=== PATIENT | female | born 1965 | race Hispanic/Latino ===

== ENCOUNTER 2017-06-21 18:13 | Emergency (ER) | payer OTHER ==
[~2017-06-21] VITALS: Ht 165.1 cm; Wt 72.6 kg
[~2017-06-21 18:13] MED LIST: PROAIR HFA8.5 GM INH
[2017-06-21 18:51] LABS: ABSOLUTE BASOPHIL COUNT 0 /CUMM (0.0-0.2); ABSOLUTE EOSINOPHIL COUNT 0.1 /CUMM (0.0-0.7); ABSOLUTE GRANULOCYTE CT 4.6 /CUMM (1.4-6.5); ABSOLUTE LYMPH COUNT 2.5 /CUMM (1.2-3.4); ABSOLUTE MONOCYTE COUNT 0.5 /CUMM (0.10-0.60); BASOPHIL % 0.6 % (0.0-2.0); EOSINOPHIL % 1.4 % (0-5); HEMATOCRIT 43.7 % (37-47); MEAN CORPUSCULAR HGB 30.7 PG (27.0-31.0); MEAN CORPUSCULAR HGB CONC 32.6 G/DL (33.0-37.0); MEAN CORPUSCULAR VOLUME 94.2 FL (81.0-99.0); MEAN PLATELET VOLUME 7.7 FL (7.4-10.4); PLATELET COUNT 299 /CUMM (130-400); RBC DISTRIBUTION WIDTH 16.8 % (11.5-14.5); RED BLOOD CELL CT 4.64 /CUMM (4.20-5.40); WHITE BLOOD CELL COUNT 7.8 /CUMM (4.8-10.8)
[2017-06-21 19:11] LABS: GRANULOCYTE % 59.4 % (42.2-75.2)
--- NOTE | 2017-06-21 20:33 | ED GENERAL ADULT ---
History of Present Illness General Chief Complaint: Headache Stated Complaint: GUIDO X 5 DAYS/ ABD SWELLING? Source: patient Exam Limitations: no limitations Vital Signs & Intake/Output Vital Signs & Intake/Output Vital Signs Date Time Temp Pulse Resp B/P B/P Pulse O2 O2 Flow FiO2 Mean Ox Delivery Rate 06/21 2231 98.7 97 20 130/78 96 Room Air 06/21 2230 95 Room Air 06/21 1822 98.1 101 18 132/89 100 Room Air ED Intake and Output 06/22 0000 06/21 1200 Intake Total Output Total Balance Patient 160 lb Weight Weight Estimated Measurement Method Allergies Coded Allergies: No Known Allergies (04/04/17) Reconcile Medications Albuterol Sulfate (Proair Hfa) 90 MCG HFA.AER.AD 2 PUF INH Q4-6 PRN PRN sob Azithromycin (Zithromax) 250 MG TABLET 1 DP PO AD PNA 2 the first day followed by 1 for days 2-5 Furosemide (Lasix) 20 MG TABLET 1 TAB PO DAILY swelling Meloxicam (Mobic) 15 MG TABLET 1 TAB PO DAILY PRN pain Triage Note: PT TO ER C/C ABD PAIN, SWELLING AND LOWER EXTREMITY EDEMA SINCE 06/06. SEEN AT [facility] ER FOR SAME ON 06/06, STATES, "NOTHING WAS WRONG WITH ME" PATIENTS LEGS NOTABLY SWOLLEN, ABD DISTENDED. +SOB, +CP Triage Nurses Notes Reviewed? yes Onset: Gradual Duration: day(s): Timing: recent history Injury Environment: home Severity: moderate : No Patient currently breastfeeds: No HPI: 51-year-old female with history of high blood pressure presents emergency department complaining of dyspnea and chest pain on exertion. Chest pain is described as substernal, relieved with rest. Patient also complaining of swelling of both lower legs and of abdomen. Abdominal swelling associated with generalized abdominal pain. Patient reports that she has had a cough productive of yellow sputum intermittently for the past several days. Patient is also feeling fevers and chills intermittently for the past 2 days with headache and body aches. Patient reports that she was seen at [facility] in May and her swelling has been present since this hospital visit. (Cat WINCHESTER,Donna Jensen) Past History Travel History Traveled to [place] past 21 day No Medical History Any Pertinent Medical History? see below for history Respiratory: asthma, bronchitis Psychiatric: depression Surgical History Surgical History: non-contributory Psychosocial History What is your primary language Citizen Of [place] Tobacco Use: Current Daily Use Daily Tobacco Use Amount/Type: => 5 Cigarettes daily Family History Hx Contributory? No (Donna Lindsey) Review of Systems Review of Systems Constitutional: Reports: see HPI. EENTM: Reports: no symptoms. Respiratory: Reports: see HPI. Cardiovascular: Reports: see HPI. GI: Reports: see HPI. Genitourinary: Reports: no symptoms. Musculoskeletal: Reports: see HPI. Skin: Reports: no symptoms. Neurological/Psychological: Reports: see HPI. Hematologic/Endocrine: Reports: no symptoms. Immunologic/Allergic: Reports: no symptoms. All Other Systems: Reviewed and Negative (Donna Lindsey) Physical Exam Physical Exam General Appearance: well developed/nourished, no apparent distress, alert, awake Head: atraumatic, normal appearance Eyes: Bilateral: normal appearance. Ears, Nose, Throat: normal pharynx, hearing grossly normal Neck: normal inspection, supple, full range of motion Respiratory: normal breath sounds, no respiratory distress, crackles bilateral lung bases Cardiovascular: regular rate/rhythm Gastrointestinal: mild-moderate distention, nontender, no rebound or gaurding Back: normal inspection, normal range of motion Extremities: normal range of motion, 1+ pitting edema bilateral lower extremities Neurologic/Psych: awake, alert, oriented x 3 Skin: intact, normal color, warm/dry Core Measures ACS in differential dx? Yes CVA/TIA Diagnosis: No Sepsis Present: No Sepsis Focused Exam Completed? No (Donna Lindsey) Progress Differential Diagnoses I considered the following diagnoses in my evaluation of the patient: [ACS, PNA, COPD, CHF, cirrhosis, constipation, SBO, pedal edema, unstable angina] Plan of Care: Orders Procedure Date/time Status TROPONIN LEVEL 06/21 1822 Complete COMPREHENSIVE METABOLIC PANEL 06/21 1822 Complete CBC WITHOUT DIFFERENTIAL 06/21 1822 Complete B-TYPE NATRIURETIC PEP (BNP) 06/21 1822 Complete EKG 06/21 1822 Active Laboratory Tests 06/21/17 1838: Anion Gap 12, Estimated GFR > 60, BUN/Creatinine Ratio 20.0, Glucose 111 H, Calcium 9.3, Total Bilirubin 0.8, AST 47 H, ALT 48, Alkaline Phosphatase 135 H , Troponin I 0.02, Ljl-M-Iydicmbifad Pept 3990 H, Total Protein 6.2 L, Albumin 3.4 L, Globulin 2.8, Albumin/Globulin Ratio 1.2, CBC w Diff NO MAN DIFF REQ, RBC 4.64, MCV 94.2, MCH 30.7, RDW 16.8 H, MPV 7.7, Gran % 59.4, Lymphocytes % 31.9, Monocytes % 6.7, Eosinophils % 1.4, Basophils % 0.6, Absolute Granulocytes 4.6, Absolute Lymphocytes 2.5, Absolute Monocytes 0.5, Absolute Eosinophils 0.1, Absolute Basophils 0, PUBS MCHC 32.6 L Chest x-ray shows likely pneumonia. Patient's blood work is within normal limits. Patient treated with azithromycin for pneumonia. She is not hypoxic, ambulatory O2 saturation 92%. Patient prescribed Lasix for pedal edema. She has an appointment scheduled with her primary care doctor within the next few weeks. Patient has no active chest pain, EKG within normal limits, troponin negative. Patient is nontoxic appearing, no acute distress. The patient agrees with the plan of care. The patient was discussed with Dr. Gotti who agrees with this plan. Diagnostic Imaging: Viewed by Me: Radiology Read. Discussed w/RAD: Radiology Read. CXR Impression: PATIENT: RODOLFO BALBUENA PRESENT AGE: 51 PATIENT ACCOUNT NO: [id number] : 65 LOCATION: [facility] ORDERING PHYSICIAN: Donna WINCHESTER SERVICE DATE: 06/21/17 EXAM TYPE: RAD - XRY-CHEST XRAY, TWO VIEWS EXAMINATION: XR CHEST CLINICAL INFORMATION: Dyspnea. Pedal edema. Rule out pneumonia, effusion, and CHF. COMPARISON: Chest radiograph 04/04/2017. TECHNIQUE: 3 views of the chest were obtained. FINDINGS: There has been interval development of an airspace opacity in the right lower lobe compatible with pneumonia. There is bibasilar atelectasis and small amount of right pleural fluid and mild thickening along the minor fissure. There is no alveolar pulmonary edema. There is no pneumothorax. The heart is mildly enlarged and appears increased in size compared to prior however this may be due to technical differences/projection. The osseous structures are intact. IMPRESSION : 1. Airspace opacity in the right lower lobe compatible with pneumonia. Mild bibasilar atelectasis is also present. 2. Small right pleural effusion. 3. Mild cardiomegaly. DICTATED BY: Dejah Julian MD DATE/TIME DICTATED:06/21/172140 SORT LINE:ANDREEA DATE/TIME TRANSCRIBED:06/21/172140 CONFIDENTIAL, DO NOT COPY WITHOUT APPROPRIATE AUTHORIZATION. <Electronically signed in Other Vendor System> SIGNED BY: Dejah Julian MD 06/21/172148 Initial ED EKG: sinus tachycardia @100bpm, nonspecific ST changes Prior EKG: unchanged (04/04/17) (Cat WINCHESTER,Donna Jensen) Departure Departure Disposition: HOME OR SELF CARE Condition: Stable Clinical Impression Primary Impression: Pneumonia Qualifiers: Pneumonia type: due to unspecified organism Laterality: unspecified laterality Lung location: unspecified part of lung Qualified Code: J18.9 - Pneumonia, unspecified organism Secondary Impressions: Abdominal swelling Dyspnea Qualifiers: Dyspnea type: unspecified Qualified Code: R06.00 - Dyspnea, unspecified Pedal edema Referrals: Unknown (PCP/Family) Additional Instructions: Begin antibiotics, take full course of antibiotics. Continue Tylenol as prescribed as needed for fevers and pain. Take meloxicam as prescribed as needed for pain. Do not take this medication with ibuprofen. You were also prescribed Lasix to begin for your leg swelling. If you have worsening symptoms other concerns please return to the emergency department. Otherwise follow-up with your primary care doctor. If you cannot see her primary care doctor in [place] because they are too far you may call [facility] care at [phone]. Please note that there might be incidental findings in your evaluation that are unrelated to the current emergency department visit. Please notify your primary care doctor about this emergency department visit in order to obtain and review all of the testing performed so that these incidental findings can be monitored as needed. If you had an x-ray performed, please understand that some fractures may not be seen on the initial set of x-rays. If your symptoms persist you might need a repeat set of x-rays to check for such a fracture. If you had a laceration evaluated, please understand that foreign bodies such as glass or wood may not be visible to the naked eye or on plain x-rays. If the wound becomes red, swollen, increasingly more painful or if there is any drainage from the wound, please have it reevaluated by a physician for the possibility of a retained foreign body. If you're unable to follow up as outlined in the discharge instructions please return to the emergency department. Thank you for choosing the Emergency Department for your care. It was a pleasure to serve you today. Departure Forms: Customer Survey General Discharge Information Prescriptions: Current Visit Scripts Azithromycin (Zithromax) 1 DP PO AD #6 TAB 2 the first day followed by 1 for days 2-5 Furosemide (Lasix) 1 TAB PO DAILY #14 TAB Meloxicam (Mobic) 1 TAB PO DAILY PRN pain #15 TAB (Donna Lindsey) PA/ACCESS SPECIALIST Co-Sign Statement Statement: ED Attending supervision documentation- I saw and evaluated the patient. I have also reviewed all the pertinent lab results and diagnostic results. I agree with the findings and the plan of care as documented in the PA's/ACCESS SPECIALIST's documentation. x I have reviewed the ED Record and agree with the PA's/ACCESS SPECIALIST's documentation. [] Additions or exceptions (if any) to the PAs/ACCESS SPECIALIST's note and plan are summarized below: [] (Ana María QUIGLEY,Surinder) Critical Care Note Critical Care Note Critical Care Time: non-applicable (Donna Lindsey)
--- NOTE | 2017-06-21 21:49 | RADIOLOGY REPORT ---
EXAMINATION: XR CHEST CLINICAL INFORMATION: Dyspnea. Pedal edema. Rule out pneumonia, effusion, and CHF. COMPARISON: Chest radiograph 04/04/2017. TECHNIQUE: 3 views of the chest were obtained. FINDINGS: There has been interval development of an airspace opacity in the right lower lobe compatible with pneumonia. There is bibasilar atelectasis and small amount of right pleural fluid and mild thickening along the minor fissure. There is no alveolar pulmonary edema. There is no pneumothorax. The heart is mildly enlarged and appears increased in size compared to prior however this may be due to technical differences/projection. The osseous structures are intact. IMPRESSION: 1. Airspace opacity in the right lower lobe compatible with pneumonia. Mild bibasilar atelectasis is also present. 2. Small right pleural effusion. 3. Mild cardiomegaly.
[2017-06-21] MEDS ORDERED: LASIX20 M1 PO (22:18)
[2017-06-21] MEDS ORDERED: MOBIC15 M1 PO (22:18)
[2017-06-21] MEDS ORDERED: ZITHROMAX250 M2 PO (22:18)
[2017-06-21 22:32] VITALS: BP 130/78
== END 2017-06-21 22:48 ==
LOC: ERH 18:13
PROVIDERS: Emergency Medicine
DX: J18.9 Pneumonia, unspecified organism (principal); R60.9 Edema, unspecified; R19.00 Intra-abdominal and pelvic swelling, mass and lump, unspecified site; R07.89 Other chest pain
CPT/HCPCS: 71046; 93005; 93010

== ENCOUNTER 2017-09-07 21:50 | Inpatient (IN) | payer OTHER ==
[~2017-09-07] VITALS: Ht 157.5 cm; Wt 61.8 kg
[~2017-09-07 21:50] MED LIST changes: +LASIX20 M1 PO; +MOBIC15 M1 PO; +ZITHROMAX250 M2 PO
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
[2017-09-07 22:59] LABS: ABSOLUTE BASOPHIL COUNT 0 /CUMM (0.0-0.2); ABSOLUTE EOSINOPHIL COUNT 0.1 /CUMM (0.0-0.7); ABSOLUTE GRANULOCYTE CT 3.5 /CUMM (1.4-6.5); ABSOLUTE LYMPH COUNT 3.2 /CUMM (1.2-3.4); ABSOLUTE MONOCYTE COUNT 0.3 /CUMM (0.10-0.60); BASOPHIL % 0.4 % (0.0-2.0); EOSINOPHIL % 1.3 % (0-5); MEAN CORPUSCULAR HGB 28.2 PG (27.0-31.0); MEAN CORPUSCULAR HGB CONC 32.9 G/DL (33.0-37.0); MEAN CORPUSCULAR VOLUME 85.6 FL (81.0-99.0); MEAN PLATELET VOLUME 7.2 FL (7.4-10.4); PLATELET COUNT 278 /CUMM (130-400); RBC DISTRIBUTION WIDTH 20.8 % (11.5-14.5); RED BLOOD CELL CT 4.79 /CUMM (4.20-5.40); WHITE BLOOD CELL COUNT 7.2 /CUMM (4.8-10.8)
[2017-09-08 08:00] VITALS: BP 156/73
[2017-09-08] MEDS ORDERED: LISINOPRIL20 M1 PO (09:14)
[2017-09-08] MEDS ORDERED: FOLIC ACID1 M1 PO (09:14)
[2017-09-08] MEDS ORDERED: CARVEDILOL6.25 M1 PO (09:14)
[2017-09-08] MEDS ORDERED: FUROSEMIDE40 M1 PO (09:14)
[2017-09-08] MEDS ORDERED: SPIRONOLACTONE25 M1 PO (09:15)
[2017-09-08] MEDS ORDERED: FLUOXETINE HCL20 M2 PO (09:15)
[2017-09-08] MEDS ORDERED: OLANZAPINE5 M2 PO (09:15)
[2017-09-08] MEDS ORDERED: FLUTICASONE PRO16 GM NASB (09:15)
[2017-09-08] MEDS ORDERED: ALBUTEROL2.5 MG/3 M INH/SOL (09:15)
[2017-09-08] MEDS ORDERED: METFORMIN HCL500 M3 PO (09:16)
[2017-09-08] MEDS ORDERED: ENALAPRIL MALEA20 M1 PO (09:16)
[2017-09-08] MEDS ORDERED: FLUVOXAMINE MAL50 MG PO (09:16)
[2017-09-08] MEDS ORDERED: ZOLPIDEM TARTRA10 M1 PO (09:16)
[2017-09-08] MEDS ORDERED: BYSTOLIC5 M1 PO (09:16)
[2017-09-08 10:00] VITALS: BP 163/76
--- NOTE | 2017-09-08 12:05 | ED PSYCH CRISIS CONSULTATION ---
See Addendum Crisis Consult Basic Assessment Date of Consult: 09/08/17 Responsible Person/Accompanied By: Self Insurance Authorization: Insurance #1: Insurance name: [employer] Phone number: Policy number: [id number] Group number: Authorization number: ED Provider: Patient's ED Provider: Juma Greenwood MD Primary Care Physician: Patient's PCP: Unknown PCP's Phone Number: Current Psychiatrist: Yris colorado APRN in private practice in [facility]. Pt unable to recall last na Chief Complaint: ETOH/Drug Related Complaint Patient's Quote: "I got a little drunk, it's my bday month and my daughter didn 't like it" Present Illness: Pt is a 52 year old female BIBA to [place] last night on a PEER from her home. Pt's daughter called 911 because pt was drunk and making suicidal threats. Pt's nursing notes from last evening support that pt was volatile and combative which required her to be restrained. Upon this morning's evaluation pt was calm and cooperative. Pt stated, "I got a little drunk because it's my birthday month and my daughter didn't like it". Pt claimed that she only drinks on occasion approximately monthly. Pt denied any other substance use. When confronted with the positive cocaine results pt stated that yesterday she tried some cocaine with her friends. Pt denied any history of substance abuse treatment. Pt stated that she is treated on an outpatient basis by an PELLET POST INSPECTOR out of [place]. She was only able to identify the woman as Yris. She wasn't able to recall her last name but stated that she sees her once a month for medication and counseling. Pt stated that she is only prescribed Xanax PRN for her anxiety. Pt denied any other mental health treatment history. Pt also denied any suicidal ideations or suicidal history. Pt stated that she has heart and liver disease. She stated, "my heart's valves are leaking and my liver is not doing so good". She stated that she also has Diabetes type 2 and hypertension. Pt stated that she lives alone. Her only source of income is child support. She stated that she is in the process of applying for social security disability. Pt stated that she was born in the [place] and completed the 6th grade. Through the years she's had a history of working many various jobs. She stated that she has 4 daughters and 2 sons. Clinician was able to reach pt's daughter Lory Marc [phone] this morning. Lory stated that pt had been diagnosed with the heart and liver failure approximately two months ago. Lory also stated that the medical problems are directly related to pt's history of alcohol dependence. Lory stated that her mother used to drink heavily but had stopped drinking as much since the heart and liver problems were diagnosed. Lory stated that her mother used to also abuse Ecstacy and opiates. Lory reported that pt had two past suicide attempts both by overdosing. Lory claimed that a few years ago pt overdosed on opiates and nearly . She lost consciousness and was hospitalized. Again approximately 8 months ago pt overdosed. Lory stated pt was given Narcan at [facility]. Pt was alert and oriented. She was cooperative and receptive toward the evaluation. She, however, minimized and was not forthright with some of the information given and there were a number of inconsistencies between pt and daughter's report. Pt's speech and thought process were clear and organized and there were no s/s of psychosis. Pt also denied any volatile or homicidal thoughts. Pt's daughter Lory stated that she would be coming to [place] to see her mother later today at around 6:00 pm when she gets out of work. Lory expressed a lot of concern for her mother and stated that she would like to see her receive inpatient treatment. Clinician also learned from [facility] documentation that pt is treated by Dr. Amira Thorpe [phone] from [place] and prescribed Prozac 20 mg and Zyprexa 5 mg. Ga Rea from [facility] [phone] called this morning. He stated that pt receives in home nursing services once per week. He stated that pt's nursing shoe parts caser is Vimal Vaz [phone]. Clinician called Vimal and left a voice message on how to reach [facility] crisis. Case reviewed with the marketing communications manager psychiatrist. There are concerns surrounding pt' s inconsistent information and heightened risk factors. call or contact centre team leader is aware of a family meeting for this evening at around 6:00 pm when pt's daughter will be present. Pt to be held over at this time. Patient's Address: [address] [address] Other Phone Number: Who Do You Live With? Other (see notes) (Pt lives with her 3 children.) Family/Informants Interviewed: pt's daughter Lory Marc [phone] Ga Rea [phone] [facility]. Allergies - Coded Allergies: No Known Allergies (04/04/17) Current Medications - Scheduled Medications Carvedilol 6.25 MG TABLET 1 TAB PO BID HEART #60 (Reported) Entered as Reported by Mitchell Montoya on 09/08/17913 Enalapril Maleate 20 MG TABLET 1 TAB PO DAILY HEART #90 (Reported) Entered as Reported by Mitchell Montoya on 09/08/17915 Fluoxetine HCl 20 MG CAPSULE 1 CAP PO DAILY MENTAL HEALTH #30 (Reported) Entered as Reported by Mitchell Montoya on 09/08/17914 Fluticasone Propionate 50 MCG/ACTUATION SPRAY.SUSP 2 SPRAY NASB DAILY ALLERGIES #16 (Reported) Entered as Reported by Mitchell Montoya on 09/08/17914 Fluvoxamine Maleate 50 MG TABLET 1 TAB PO QPM SLEEP #30 (Reported) Entered as Reported by Mitchell Montoya on 09/08/17915 Folic Acid 1 MG TABLET 1 TAB PO DAILY VITAMIN SUPPORT #14 (Reported) Entered as Reported by Mitchell Montoya on 09/08/17913 Furosemide 40 MG TABLET 1 TAB PO DAILY WATER RETENTION #30 (Reported) Entered as Reported by Mitchell Montoya on 09/08/17913 Lisinopril 20 MG TABLET 1 TAB PO DAILY HEART #30 (Reported) Entered as Reported by Mitchell Montoya on 09/08/17913 Metformin HCl 500 MG TABLET 1 TAB PO BID DIABETES #180 (Reported) Entered as Reported by Mitchell Montoya on 09/08/17915 Nebivolol HCl (Bystolic) 5 MG TABLET 1 TAB PO DAILY HEART #30 (Reported) Entered as Reported by Mitchell Montoya on 03/30/18 0916 Olanzapine 5 MG TABLET 1 TAB PO DAILY MENTAL HEALTH #30 (Reported) Entered as Reported by Mitchell Montoya on 09/08/17914 Spironolactone 25 MG TABLET 1 TAB PO DAILY HEART #30 (Reported) Entered as Reported by Mitchell Montoya on 09/08/17914 Zolpidem Tartrate 10 MG TABLET 1 TAB PO QPM SLEEP #30 (Reported) Entered as Reported by Mitchell Montoya on 09/08/17 0916 Scheduled PRN Medications Albuterol Sulfate 2.5 MG/3 ML (0.083 %) VIAL.NEB 1 Vial INH/YOSELIN Q4P PRN SHORTNESS OF BREATH #375 (Reported) Entered as Reported by Mitchell Montoya on 09/08/17914 Albuterol Sulfate (Proair Hfa) 90 MCG HFA.AER.AD 2 PUF INH Q4-6 PRN PRN sob #1 INHAL Prescribed by Surinder Gotti MD on 04/04/17 Laboratory Results: Laboratory Tests 09/07/170: Anion Gap 21 H, Estimated GFR > 60, BUN/Creatinine Ratio 18.8, Glucose 101 H, Calcium 9.5, Total Bilirubin 0.4, AST 21, ALT 23, Alkaline Phosphatase 72, Total Protein 7.4, Albumin 4.2, Globulin 3.2, Albumin/Globulin Ratio 1.3, Lipase 142, CBC w Diff NO MAN DIFF REQ, RBC 4.79, MCV 85.6, MCH 28.2, MCHC 32.9 L, RDW 20.8 H, MPV 7.2 L, Gran % 49.0, Lymphocytes % 44.6, Monocytes % 4.7, Eosinophils % 1.3, Basophils % 0.4, Absolute Granulocytes 3.5, Absolute Lymphocytes 3.2, Absolute Monocytes 0.3, Absolute Eosinophils 0.1, Absolute Basophils 0, Serum Alcohol 210.0 09/07/170: Urine Opiates Screen < 100, Methadone Screen 40, Barbiturate Screen < 60, Ur Phencyclidine Scrn < 6.00, Amphetamines Screen < 100, U Benzodiazepines Scrn < 85, Urine Cocaine Screen > 1000 H, Urine Cannabis Screen < 5.00 Past History Past Medical History Neurological: NONE EENT: NONE Cardiovascular: CHF, hypertension Respiratory: asthma, bronchitis Gastrointestinal: NONE Hepatic: NONE Renal: NONE Musculoskeletal: NONE Psychiatric: depression Endocrine: NONE Blood Disorders: NONE Cancer(s): NONE THEOLOGY PROFESSOR/Reproductive: NONE Past Surgical History Surgical History: non-contributory Psychosocial History Strengths/Capabilities: Pt has strong family support. Physical Limitations (Interventions): None reported. Psychiatric Treatment History Psych Treatment Psychiatric Treatment Yes Inpatient Treatment No Outpatient Treatment Yes Location of Treatment Dr. Amira Thorpe [place] Reason for Treatment mood disorder Dates of Treatment current Response to Treatment compliance uncertain. Diagnosis by History: Mood Disorder Substance Use/Abuse History Drug Use/Abuse 1 Substances Used/Abused Yes Substance Used/Abused Alcohol First Use unknown Last Used yesterday How much used/taken unknown How often monthly For how long has used many years Drug Use/Abuse 2 Substances Used/Abused Yes Substance Used/Abused Cocaine First Use unknown Last Used yesterday How much used/taken unknown How often pt claims not often For how long unknown Route of use sniff Substance Abuse Treatment Substance Abuse Treatment Past Substance Abuse TX No Inpatient Treatment No Outpatient Treatment No Comments: Pt's daughter stated that pt has a history of ETOH dependence. Daughter also stated that pt has a hx of abusing Ecstacy and pills (opiates) Current Mental Status Mental Status Orientation: Person, Place, Situation Affect: Depressed Speech: WNL Neuro-vegetative: WNL Appearance Appearance- Dress/Hygiene: Pt's hygiene is wnl. Behaviors Thought Process: WNL Thought Content: WNL Memory: Impaired Insight: Poor SI/HI Risk Assessment Past Suicidal Ideation/Attempts Yes Current Suicidal Ideation/Att No Past Homicidal Ideation/Att: No Current Homicidal Ideation/Attempts No Degree of Intent: None Danger To: Self Gravely Disabled: Lack of Insight, Poor Judgment Risk Factors: chronic/serious med cond., history of suicide atmpts, substance abuse, poor impulse control Lethality Ratin PTSD Checklist PTSD Done? patient declined ED Management Sitter: Yes Restraints: No DSM5/PS Stressors/Medical Prob Diagnosis' (DSM 5, Stressors, Medical): F32.9 Unspecified Depressive Disorder F10.20 Alcohol Use Disorder, Severe F14.20 Cocaine Use Disorder, Moderate Current GAF: 35 Departure Disposition Psych Medical Clearance Date: 09/08/17 Medically Cleared at: 0845 Time Started: 844 Time Ended: 929 Psychiatrist Consulted: Aleja Angela MD Date Disposition Established: 09/08/17 Time Disposition Established: 1100 Rationale for Disposition: Case reviewed with the marketing communications manager psychiatrist. There are concerns surrounding pt' s inconsistent information and heightened risk factors. call or contact centre team leader is aware of a family meeting for this evening at around 6:00 pm when pt's daughter will be present. Pt to be held over at this time. Referrals Unknown (PCP/Family)
[2017-09-08 19:34] VITALS: BP 139/90
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
[2017-09-08 23:11] VITALS: BP 141/88
[2017-09-08 23:46] VITALS: BP 147/83
[2017-09-09] VITALS (14 sets, daily range): BP systolic 103–140; BP diastolic 49–80
--- NOTE | 2017-09-09 01:21 | History & Physical ---
General Information and HPI History of Present Illness: Ms. Sigala is a 52-year-old female who was brought in from her home, has history of type 2 diabetes hypertension, unspecified heart failure, polysubstance abuse, presents with complaints of depression. Associated symptoms include suicidal threats, patient has been drinking alcohol and illicit drugs. Last time patient used cocaine was 2 days ago. Denies any specific symptoms of chest pain shortness of breath lightheadedness dizziness. Patient is to follow up with cryptographer and [facility]. Has been compliant with cardiac medications. Allergies/Medications Allergies: Coded Allergies: No Known Allergies (04/04/17) Home Med list Albuterol Sulfate 2.5 MG/3 ML (0.083 %) VIAL.NEB 1 Vial INH/YOSELIN Q4P PRN SHORTNESS OF BREATH (Reported) Albuterol Sulfate (Proair Hfa) 90 MCG HFA.AER.AD 2 PUF INH Q4-6 PRN PRN sob Carvedilol 6.25 MG TABLET 1 TAB PO BID HEART (Reported) Enalapril Maleate 20 MG TABLET 1 TAB PO DAILY HEART (Reported) Fluoxetine HCl 20 MG CAPSULE 1 CAP PO DAILY MENTAL HEALTH (Reported) Fluticasone Propionate 50 MCG/ACTUATION SPRAY.SUSP 2 SPRAY NASB DAILY ALLERGIES (Reported) Fluvoxamine Maleate 50 MG TABLET 1 TAB PO QPM SLEEP (Reported) Folic Acid 1 MG TABLET 1 TAB PO DAILY VITAMIN SUPPORT (Reported) Furosemide 40 MG TABLET 1 TAB PO DAILY WATER RETENTION (Reported) Lisinopril 20 MG TABLET 1 TAB PO DAILY HEART (Reported) Metformin HCl 500 MG TABLET 1 TAB PO BID DIABETES (Reported) Nebivolol HCl (Bystolic) 5 MG TABLET 1 TAB PO DAILY HEART (Reported) Olanzapine 5 MG TABLET 1 TAB PO DAILY MENTAL HEALTH (Reported) Spironolactone 25 MG TABLET 1 TAB PO DAILY HEART (Reported) Zolpidem Tartrate 10 MG TABLET 1 TAB PO QPM SLEEP (Reported) Past History Travel History Traveled to [place] past 21 day No Medical History Neurological: NONE EENT: NONE Cardiovascular: CHF, hypertension Respiratory: asthma, bronchitis Gastrointestinal: NONE Hepatic: NONE Renal: NONE Musculoskeletal: NONE Psychiatric: depression Endocrine: NONE Blood Disorders: NONE Cancer(s): NONE 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 Cardiovascular: Denies: chest pain, edema, orthopena, palpitations. Respiratory: Reports: no symptoms. GI: Reports: no symptoms. Genitourinary: Reports: no symptoms. Musculoskeletal: Reports: no symptoms. Neurological/Psychological: Reports: see HPI. Exam & Diagnostic Data Last 24 Hrs of Vital Signs/I&O Vital Signs Date Time Temp Pulse Resp B/P B/P Pulse O2 O2 Flow FiO2 Mean Ox Delivery Rate 09/09 0054 97.0 72 136/79 09/08 2346 86 147/83 09/08 2311 98.1 85 141/88 09/08 2159 78 139/90 09/08 2156 97.8 90 18 142/84 96 Room Air 09/08 1934 97.7 78 18 139/90 09/08 1933 97.7 78 18 139/90 96 Room Air 09/08 1511 98.2 85 18 171/77 97 Room Air 09/08 1000 98.1 87 18 163/76 09/08 0951 98.1 87 18 163/76 96 Room Air 09/08 0800 998.7 73 18 156/73 09/08 0754 98.7 85 18 156/73 95 Room Air 09/08 0556 85 18 146/78 97 Room Air 09/08 0439 97.1 87 16 112/67 96 Intake & Output 09/09 0800 09/09 0000 09/08 1600 Intake Total Output Total Balance Patient 136 lb Weight Physical Exam General Appearance Alert, Oriented X3, Cooperative Skin No Rashes HEENT Atraumatic, PERRLA Cardiovascular Regular Rate, Normal S1, Normal S2 Lungs Clear to Auscultation Abdomen Soft, No Tenderness Neurological No focal neurological deficit Extremities No Clubbing, No Cyanosis Assessment/Plan As Ranked By This Provider Problem List: 1. Alcohol intoxication 2. Suicide ideation 3. Cocaine abuse 4. Depression with suicidal ideation Core Measures/Misc (02/26) Acute Coronary Syndrome ACS Diagnosis: No Congestive Heart Failure Congestive Heart Failure Diagnosis No Cerebrovascular Accident CVA/TIA Diagnosis: No VTE (View Protocol) VTE Risk Factors Age>40 No Mechanical VTE Prophylaxis d/t LowRisk-No Interven Req'd No VTE Pharm Prophylaxis d/t LowRisk-No Interven Req'd Sepsis (View protocol) Sepsis Present: No Attending MD Review Statement Attending Statement Attending MD Statement: examined this patient, reviewed EMR data (avail), discussed with nursing Attending Assessment/Plan: Ms. Sigala is a 52 y/o female who is brought in for complaints of depressive disorder Assessment and Plan 1. Depressive disorder - Continue with medications as per Psychiatry 2. Congestive heart failure - Compensated - need to obtain records from [facility] - continue with current medications 3. Anion gap metabolic acidosis - secondary to alcohol - Repeat BEP in AM 4. Type II DM - Continue with Metformin 5. Polysubstance abuse
--- NOTE | 2017-09-09 11:05 | CPS PROVIDER INIT ASMT PSYCH ---
Psychiatric Admission Beverage Server's Note Reviewed: Yes Patient Seen and Examined: Yes Identifying Information: 52yoF Chief Complaint: "I don't know what happened" Reaction to Hospitalization: unable to asses, admitted overnight History of Present Illness Onset of Illness: years ago Circumstances Leading to Admission: worsening substance use Problem(s) Justifying Need for Admission: +SI Other HPI: Pt notes that she has struggled with depression and anxiety for years. She has been seen by psychiatric provider and given meds, which she finds to be helpful. Unfortunately, she feel into "the same old, same old," and starting using substances, cocaine and alcohol more heavily. Minimzing the arount of use. Notes that she is struggling to care for her children (teenagers). She notes worsening anxiety attacks over the past few weeks. Denies SI or HI despite collateral provided by family. She strugged when asked about conflicting reports. Pt denies psychotic, manic, TRS. Past Psychiatric History Past Diagnosis(es)- if any: Major Depressive Disorder Generalized anxiety disorder Panic disorder Polysubstance use disorder Past Precipitating Factors- if any: substance use - Include inpatient and outpatient treatment Treatment History: Pt reports in psychiatric treatment for many years. Could not recall details but notes current meds are effective. History of Suicide Attempts or Gestures Per pt, one which lead to multiple medical problems 2/2 OD Pt collateral, several attempts recent Substance Abuse History: Tobacco: 2 cigs/day Alcohol: pt only recalls "a few beers" Illicits: $10 cocaine per day Per collateral, much heavily use Allergies: Coded Allergies: No Known Allergies (04/04/17) Home Med List: see H&P - Include any medical condition(s) that may - impact the patient's recovery/remission Past Medical History: underlying heart dysfunctin underlying liver dysfunction Past History Medical History Neurological: NONE EENT: NONE Cardiovascular: CHF, hypertension Respiratory: asthma, bronchitis Gastrointestinal: NONE Hepatic: NONE Renal: NONE Musculoskeletal: NONE Psychiatric: depression Endocrine: NONE Blood Disorders: NONE Cancer(s): NONE 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 Isolation History: Standard Surgical History Surgical History: none Psychiatric Family/Social Hx Family History Psychiatric Illness: mother with anxiety and depression Substance Use: mother with substance use Suicides: denied Social History Living Situation: alone with children Significant Relationships (family/friends): family Education: 6th grade Vocation/Occupation: disabled Legal: denied current Healthly Behaviors Screening Tobacco Screening Tobacco Use from ED Docu: Current Daily Use Daily Tobacco Use Amount/Type: =< 4 Cigarettes daily - If tobacco counseling indicated - the following topics are required. - #1 Recognizing dangerous situations. - #2 Coping Skills. - #3 Basic information about quitting. Status of Tobacco Cessation Counseling: #1, #2 AND #3 Completed Cessation Med Status Nicotine Gum Ordered Alcohol Screening - ETOH screen POS if BAL >=80 or Audit-C>= M4/F3 Audit-C Score from Diag Assess: 3 Blood Alcohol Level: Laboratory Tests 09/07 225 Toxicology Serum Alcohol (<10 MG/DL) 210.0 Alcohol Use Screening Results: Pos per Audit C &/or BAL - If ETOH counseling indicated - the following topics are required. - #1 Express concern about the patient's - drinking at unhealthy levels, include informing - of national norms for moderate drinking: - men <= 14 drinks/week, max 4 drinks/occasion - women <= 7 drinks/week, max 3 drinks/occasion - #2 Providing feedback, including linking alcohol to - negative physical effects (liver injury, hypertension) - negative emotional effects (relationship problems and - depression) - negative occupational consequences (reduced work - performance) - #3 Advising the patient to abstain from alcohol or - to drink below national norms for moderate drinking - (as listed above). Status of ETOH Use Counseling: #1, #2 AND #3 Completed. Metabolic Screening - Screen if on a Neuroleptic Medication - Metabolic screening should include: - Blood Pressure, BMI, Glucose or Hgb A1c, & a - Lipid profile from within the past 365 days. Metabolic Screening Laboratory Tests 09/09 09/07 09/07 0700 2250 2230 Chemistry Sodium (137 - 145 mmol/L) 141 145 Potassium (3.5 - 5.1 mmol/L) 3.7 3.7 Chloride (98 - 107 mmol/L) 102 103 Carbon Dioxide (22 - 30 mmol/L) 27 21 L Anion Gap (5 - 16) 11 21 H BUN (7 - 17 mg/dL) 17 15 Creatinine (0.5 - 1.0 mg/dL) 0.8 0.8 Estimated GFR (>60 ml/min) > 60 > 60 BUN/Creatinine Ratio (7 - 25 %) 21.3 18.8 Glucose (65 - 99 mg/dL) 101 H Lactic Acid (0.7 - 2.1 mmol/L) 0.7 Calcium (8.4 - 10.2 mg/dL) 9.5 Total Bilirubin (0.2 - 1.3 mg/dL) 0.4 AST (14 - 36 U/L) 21 ALT (9 - 52 U/L) 23 Alkaline Phosphatase (<127 U/L) 72 Total Protein (6.3 - 8.2 g/dL) 7.4 Albumin (3.5 - 5.0 g/dL) 4.2 Globulin (1.9 - 4.2 gm/dL) 3.2 Albumin/Globulin Ratio (1.1 - 2.2 %) 1.3 Lipase (23 - 300 U/L) 142 Hematology CBC w Diff NO MAN DIFF REQ WBC (4.8 - 10.8 /CUMM) 7.2 RBC (4.20 - 5.40 /CUMM) 4.79 Hgb (12.0 - 16.0 G/DL) 13.5 Hct (37 - 47 %) 41.0 MCV (81.0 - 99.0 FL) 85.6 MCH (27.0 - 31.0 PG) 28.2 MCHC (33.0 - 37.0 G/DL) 32.9 L RDW (11.5 - 14.5 %) 20.8 H Plt Count (130 - 400 /CUMM) 278 MPV (7.4 - 10.4 FL) 7.2 L Gran % (42.2 - 75.2 %) 49.0 Lymphocytes % (20.5 - 51.1 %) 44.6 Monocytes % (1.7 - 9.3 %) 4.7 Eosinophils % (0 - 5 %) 1.3 Basophils % (0.0 - 2.0 %) 0.4 Absolute Granulocytes (1.4 - 6.5 /CUMM) 3.5 Absolute Lymphocytes (1.2 - 3.4 /CUMM) 3.2 Absolute Monocytes (0.10 - 0.60 /CUMM) 0.3 Absolute Eosinophils (0.0 - 0.7 /CUMM) 0.1 Absolute Basophils (0.0 - 0.2 /CUMM) 0 Toxicology Urine Opiates Screen (>2000 NG/ML) < 100 Methadone Screen (>300 NG/ML) 40 Barbiturate Screen (>200 NG/ML) < 60 Ur Phencyclidine Scrn (>25 NG/ML) < 6.00 Amphetamines Screen (>1000 NG/ML) < 100 U Benzodiazepines Scrn (>200 NG/ML) < 85 Urine Cocaine Screen (>300 NG/ML) > 1000 H Urine Cannabis Screen (>50 NG/ML) < 5.00 Serum Alcohol (<10 MG/DL) 210.0 Exam and Plan Mental Status Examination Ambulation Status: freely Appearance: older than stated age Attitude towards examiner: cooperative but defensive Psychomotor activity: retardation Behavior: cooperative Quality of speech: nl r/r/p/v Affect: irritable, constricted, julius, non-labile Mood: "OK" Suicidal Ideation: denies Homicidal Ideation: denies Hallucinations: denies Paranoid/Delusional Material: denies Difficulties with thought organization: none noted Insight: limited Judgment: poor Orientation: a/o x4 Cognition: grossly intact Memory Function: grossly intact Estimate of intellectual functioning: below average Assets/Strengths Patient Identified Assets/Strengths: able to communicate Impression/Plan Impression and Plan: Pt with long hx of depression and anxiety complicated by substance use. - Include all active medical diagnosis that require tx DSM 5 Diagnosis(es): Major Depressive disorder Unspecified anxiety disorder Substance-induced mood disorder Alcohol use disorder Cocaine dependence/abuse - Initial Tx Plan for Active Psych & Medical Conditions Treatment Plan: Continue home meds Likely much of the mood distrubance driven by substance use Need collateral and family meeting - Factors that would help patient function - in a less restrictive setting. Factors: substance use
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
[2017-09-10] VITALS (10 sets, daily range): BP systolic 102–147; BP diastolic 58–78
--- NOTE | 2017-09-10 10:55 | CP SOUTH PROGRESS NOTE PSYCH ---
Psych (Inpt) Progress Note Progress Note Include the following elements, when applicable: Involvement in the active treatment of the patient with behavioral observations of the patient and the patient's response to the treatment. Review of the ongoing treatment process in the context of the treatment plan. Indication of how multi-disciplinary staff members are carrying out the treatment plan. Plans for future interventions and recommendations for revision of the treatment plan. Liaison with other physicians/providers. Progress Note: Pt now admits that concerns from her family where valid. She notes that she was using more substances than she was reporting. She did have a visit from her daughter yesterday where they discussed things. Denies SI or HI. Current Medications Sig/Traci Start time Last Medication Dose Route Stop Time Status Admin Albuterol Sulfate 2 PUF Q4-6 PRN PRN 09/08 2000 AC INH Carvedilol 6.25 MG BID 09/08 2200 AC 09/10 PO 0918 Fluoxetine HCl 20 MG DAILY 09/09 1116 AC 09/10 PO 0918 Folic Acid 1 MG DAILY 09/09 1000 AC 09/10 PO 09/11 1001 0918 Furosemide 40 MG DAILY 09/09 1000 AC 09/10 PO 0918 Lorazepam 0.5 MG ONCE 09/13 0000 AC PO 09/13 0001 Lorazepam 0.5 MG Q6H 09/12 0000 AC PO 09/12 1801 Lorazepam 0.5 MG ONCE ONE 09/11 1800 AC PO 09/11 1801 Lorazepam 1 MG Q6H 09/11 0000 AC PO 09/11 1201 Lorazepam 1.5 MG Q12H 09/10 0600 AC 09/10 PO 09/10 1801 0614 Lorazepam 1 MG Q12H 09/10 0000 AC 09/10 PO 09/10 1201 0002 Lorazepam 1.5 MG Q6 09/09 0600 DC 09/09 PO 09/09 1801 1833 Lorazepam 2 MG Q2P PRN 09/08 2345 AC PO Lorazepam 1 MG Q2P PRN 09/08 2345 AC PO Metformin HCl 500 MG 0800,1700 09/08 2014 AC 09/10 PO 0917 Multivitamins 1 TAB DAILY 09/09 1000 AC 09/10 PO 0918 Nicotine 2 MG Q2P PRN 09/09 1200 AC PO Olanzapine 5 MG DAILY 09/09 1116 AC 09/10 PO 0918 Spironolactone 25 MG DAILY 09/08 1949 AC 09/10 PO 0917 Thiamine HCl 100 MG DAILY 09/09 1000 AC 09/10 PO 09/11 1001 0918 Laboratory Tests 09/09 09/07 09/07 0700 2250 2230 Chemistry Sodium (137 - 145 mmol/L) 141 145 Potassium (3.5 - 5.1 mmol/L) 3.7 3.7 Chloride (98 - 107 mmol/L) 102 103 Carbon Dioxide (22 - 30 mmol/L) 27 21 L Anion Gap (5 - 16) 11 21 H BUN (7 - 17 mg/dL) 17 15 Creatinine (0.5 - 1.0 mg/dL) 0.8 0.8 Estimated GFR (>60 ml/min) > 60 > 60 BUN/Creatinine Ratio (7 - 25 %) 21.3 18.8 Glucose (65 - 99 mg/dL) 101 H Hemoglobin A1c (4.2 - 5.8 %) Pending Lactic Acid (0.7 - 2.1 mmol/L) 0.7 Calcium (8.4 - 10.2 mg/dL) 9.5 Total Bilirubin (0.2 - 1.3 mg/dL) 0.4 AST (14 - 36 U/L) 21 ALT (9 - 52 U/L) 23 Alkaline Phosphatase (<127 U/L) 72 Total Protein (6.3 - 8.2 g/dL) 7.4 Albumin (3.5 - 5.0 g/dL) 4.2 Globulin (1.9 - 4.2 gm/dL) 3.2 Albumin/Globulin Ratio (1.1 - 2.2 %) 1.3 Triglycerides (<150 mg/dL) 109 Cholesterol (<200 MG/DL) 193 LDL Cholesterol, Calc (65 - 129 mg/dL) 108 HDL Cholesterol (40 - 60 mg/dL) 64 H Cholesterol/HDL Ratio (0.00 - 4.23 %) 3 Lipase (23 - 300 U/L) 142 Vitamin B12 (239 - 931 pg/mL) 308 TSH (0.270 - 4.200 uIU/mL) 1.630 Hematology CBC w Diff NO MAN DIFF REQ WBC (4.8 - 10.8 /CUMM) 7.2 RBC (4.20 - 5.40 /CUMM) 4.79 Hgb (12.0 - 16.0 G/DL) 13.5 Hct (37 - 47 %) 41.0 MCV (81.0 - 99.0 FL) 85.6 MCH (27.0 - 31.0 PG) 28.2 MCHC (33.0 - 37.0 G/DL) 32.9 L RDW (11.5 - 14.5 %) 20.8 H Plt Count (130 - 400 /CUMM) 278 MPV (7.4 - 10.4 FL) 7.2 L Gran % (42.2 - 75.2 %) 49.0 Lymphocytes % (20.5 - 51.1 %) 44.6 Monocytes % (1.7 - 9.3 %) 4.7 Eosinophils % (0 - 5 %) 1.3 Basophils % (0.0 - 2.0 %) 0.4 Absolute Granulocytes (1.4 - 6.5 /CUMM) 3.5 Absolute Lymphocytes (1.2 - 3.4 /CUMM) 3.2 Absolute Monocytes (0.10 - 0.60 /CUMM) 0.3 Absolute Eosinophils (0.0 - 0.7 /CUMM) 0.1 Absolute Basophils (0.0 - 0.2 /CUMM) 0 Toxicology Urine Opiates Screen (>2000 NG/ML) < 100 Methadone Screen (>300 NG/ML) 40 Barbiturate Screen (>200 NG/ML) < 60 Ur Phencyclidine Scrn (>25 NG/ML) < 6.00 Amphetamines Screen (>1000 NG/ML) < 100 U Benzodiazepines Scrn (>200 NG/ML) < 85 Urine Cocaine Screen (>300 NG/ML) > 1000 H Urine Cannabis Screen (>50 NG/ML) < 5.00 Serum Alcohol (<10 MG/DL) 210.0 Vital Signs Date Time Temp Pulse Resp B/P B/P Pulse O2 O2 Flow FiO2 Mean Ox Delivery Rate 09/10 09 97.9 83 20 116/78 09/10 0823 97.9 83 116/78 09/10 0822 97.9 93 116/78 09/10 0610 69 125/74 09/09 2351 82 104/55 09/09 2226 94 104/49 09/09 2225 94 104/49 09/10 1999 98.7 96 140/79 09/09 1815 97 122/62 09/09 1610 96 117/66 09/09 1609 96 117/66 09/09 1448 85 103/58 09/09 1156 84 111/63 09/09 1155 84 111/63 MSE General appearance: fair hygiene and grooming; Attitude: cooperative; Eye contact: appropriate; Movement: no psychomotor agitation or slowing; Speech: nl fluency, nl rate/rhythm, nl volume, nl prosody; Mood: "OK" Affect: irritable, flat, appropriate, constricted, non-labile, congruent; Thought process: linear and goal-directed; Thought content: denied SI or HI, no paranoid ideation; Perception: denied hallucinations- auditory, visual, does not appear to be responding to internal stimuli; I/J: limited A/P: Pt with long hx of depression and anxiety complicated by substance use. - Continue current regimen - Tolerating detox w/o difficulty - Need family meeting
[2017-09-11] VITALS (8 sets, daily range): BP systolic 118–141; BP diastolic 68–76
--- NOTE | 2017-09-11 08:31 | CP SOUTH PROGRESS NOTE PSYCH ---
Psych (Inpt) Progress Note Progress Note Mental Status Examination: The patient showed good range of affect, she was smiling appropriately, she was calm and cooperative; she was appropriate/no bizarre or strange behaviors; no psychomotor agitation or slowing; the patient , the patient had adequate Kittitian and was not pressured She reported that her mood was "good" and denied that she was having thoughts of suicide before coming in she said that her daughter said that because they were arguing She was coherent/linear and goal-directed; She denied wishing , denied SI or HI, no paranoid ideation; She denied hallucinations, does not appear to be responding to internal stimuli; I/J: limited. A/P: Pt with long hx of depression and anxiety complicated by substance use. The patient is tolerating the detoxification from alcohol without any issues she does not have any withdrawal symptoms and does not have withdrawal signs. she is eager to leave the hospital Treatment plan update: Continue the Ativan taper and the detoxification from alcohol Continue fluoxetine HCl 20 MG DAILY Folic Acid 1 MG DAILY Furosemide 40 MG DAILY Metformin HCl 500 MG 0800,1700 Multivitamins 1 TAB DAILY Nicotine 2 MG Q2P PRN Olanzapine 5 MG DAILY Spironolactone 25 MG DAILY Albuterol Sulfate 2 PUF Q4-6 PRN PRN Carvedilol 6.25 MG BID
--- NOTE | 2017-09-11 15:18 | SOCIAL WORKER PROG NOTE PSYCH ---
Social Work Progress Note Progress Note [facility] concurrent review entered (check web for authorization): Member Name Member ID Member Subscriber Name Subscriber ID RODOLFO BALBUENA [id number] 1965 RODOLFO BALBUENA [id number] Pended Authorization # Client Authorization # Type of Request [id number] CONCURRENT Date of Admission/ Start of Services Requested From Submission Date 09/08/2017 09/11/2017 09/11/2017 Level of Service Type of Service Level of Care Type of Care INPATIENT/HLOC Mental Health Inpatient Inpatient Hospital - Inpatient [facility]
--- NOTE | 2017-09-11 16:27 | SOCIAL WORKER PROG NOTE PSYCH ---
Social Work Progress Note Progress Note This engineering writer met with patient. She reported that she came to the hospital because "she [patient's daughter] doesn't want me to drink." Patient reported that she drinks 40oz of beer once/monthly. Patient denied any other substance use, however, crisis assessment indicates that patient admitted to Cocaine use. Patient denied any consequences associated with her alcohol use. She identified alcohol as a coping skill that she utilizes to manage stress. Patient identified her primary stressors as financial stress and "child support problems." Patient denied any legal issues or DCF involvement. She rated her depression at an 8/10 and anxiety at a 5/10, with 10 being the worst/most severe. Patient denied SI/HI/AH/VH. Patient was agreeable to a referral to IOP and, based on the patient living in [place], she was agreeable to a referral to Care. Patient was also agreeable to a family meeting with her daughter, Lory Marc. Patient signed [facility] for Care, her primary care phsycian and her daughter. Patient stated that she has a psychiatrist, however, could not remember the name. This engineering writer and patient contacted her daughter by phone regarding the psychiatrist's name. She stated that she will bring the name with her when she visits [facility].
[2017-09-12 06:27] VITALS: BP 125/70
[2017-09-12 08:36] VITALS: BP 120/78
--- NOTE | 2017-09-12 09:08 | CP SOUTH PROGRESS NOTE PSYCH ---
Psych (Inpt) Progress Note Progress Note Vital signs: Blood pressure 120/78 mmHg, pulse 80 bpm, temperature 96.3F Mental Status Examination: The patient was alert & oriented to time, place, and person. She showed good range of affect, she was smiling appropriately, she was calm and cooperative; she was appropriate/no bizarre or strange behaviors. The patient's speech was not slurred and was not pressured She reported that her mood was "good" and denied that she was having thoughts of suicide She was coherent/linear and goal-directed; The patient denied having any violent thoughts or thoughts of homicide, no paranoid ideation; She denied hallucinations, does not appear to be responding to internal stimuli. Assessment: The patient is a 52-year-old who was admitted to the inpatient psychiatric unit on September 08, 2017 because her daughter reported that she was having thoughts of suicide. The patient denied that. Pt with long hx of depression and anxiety complicated by substance use. The patient was detoxified from alcohol without any issues. She was continued on her Prozac and Zyprexa as prescribed by care previously. The patient has been denying thoughts of suicide all along. She seems to be in good spirits and is slated for discharge for , 09/14/2017 Treatment plan update: Discontinue CIWA DC Ativan Continue fluoxetine 20 MG DAILY Olanzapine 5 MG DAILY
[2017-09-12 12:17] VITALS: BP 121/74
--- NOTE | 2017-09-12 13:33 | SOCIAL WORKER PROG NOTE PSYCH ---
Social Work Progress Note Progress Note Pt has an intake with [facility] with counselor Bren Granda 09/25/17 at 9:30am.
[2017-09-12 16:13] VITALS: BP 126/66
--- NOTE | 2017-09-12 16:40 | SOCIAL WORKER PROG NOTE PSYCH ---
Social Work Progress Note Progress Note This clinical writer met with patient. She stated that she is not willing to attend [facility] at [facility] as she is unable to leave her home. She expressed interest in a visiting therapist. This clinical writer informed patient that this would be reviewed in tomorrow meetings team meeting. Patient stated that she would like to return to her outpatient psychiatrist for medication management. She also stated that she would like an appointment with her primary care provider. Patient described her mood as "pretty good." She denied SI/HI/AH/VH. This clinical writer and the patient called her daughter, Lory, and scheduled a family meeting for , 09/14/17, at 12pm by phone. Lory stated that she would bring the name of the psychiatrist [facility] as the patient and her daughter were unable to remember the provider's name.
[2017-09-12 19:58] VITALS: BP 130/77
[2017-09-13 07:45] VITALS: BP 121/74
[2017-09-13] MEDS ORDERED: FLUOXETINE HCL20 M2 PO (11:16)
[2017-09-13] MEDS ORDERED: NICORELIEF2 MG PO (11:16)
[2017-09-13] MEDS ORDERED: OLANZAPINE5 M2 PO (11:16)
--- NOTE | 2017-09-13 11:20 | Patient Discharge Instructions ---
Psych Discharge Inst General Discharge Information Reason for Admission: questions about statements of suicide Psy Discharge Primary Diag+ Major Depressive Disorder Psy Discharge Secondary Diag+ Alcohol use Disorder Summary Tests/Major Procedures Lab BUN 17 mg/dL 09/09/17 07 BUN/Creatinine Ratio 21.3 % 09/09/17 07 Cholesterol 193 MG/DL 09/09/17 07 Cholesterol/HDL Ratio 3 % 09/09/17 07 Creatinine 0.8 mg/dL 09/09/17 07 Estimated GFR > 60 ml/min 09/09/17 07 HDL Cholesterol 64 mg/dL H 09/09/17 07 Hemoglobin A1c 6.2 % H 09/07/17 2250 LDL Cholesterol, Calc 108 mg/dL 09/09/17 07 Triglycerides 109 mg/dL 09/09/17 07 Studies Pending at DC: none Patient Instructions Contact Information Your Psychiatrist on [facility] was Heaven QUIG[place] * If you are experiencing an emergency related to this hospitalization, please call [phone] to contact the treating psychiatrist or the psychiatrist-on- call. * To Request a copy of your medical records, please contact the Medical Records Department at [phone]. * To request results of studies pending at the time of discharge, please call [phone]. * Continue your Medications until directed to stop by your Healthcare provider. General Medication Information Please continue to take your new medications and your continued home medications , unless otherwise indicated on your discharge medication list, or unless directed by your MD or FUR FINISHER SEAMSTRESS to stop them. Special Instructions Diet Heart Healthy Activity As Tolerated Other Inst/Recommendations follow up with your hand flesher - Tobacco Use Treatment Offered Post DC Medications Offered: Script Given-See Med List Post DC Tobacco Treatment Plan: Refused Tobacco Tx Pgm - EtOH/Drug Use D/O Treatment Offered Post DC Medications Offered: Med Not Indicated for D/O Post DC EtOH/SubAbuse TX Plan: Other SubAbuse/Dual Pgm Metabolic Screening Patient on a neuroleptic(s) . Enter below results for Hemoglobin A1C, and lipid panel if obtained during the last 365 days. BMI: 24.900 Blood Pressure: 121/74 Laboratory Results From [facility] (If applicable): Lab BUN 17 mg/dL 09/09/17 0700 BUN/Creatinine Ratio 21.3 % 09/09/17 0700 Cholesterol 193 MG/DL 03/31/18 07 Cholesterol/HDL Ratio 3 % 09/09/17 07 Creatinine 0.8 mg/dL 09/09/17 07 Estimated GFR > 60 ml/min 09/09/17 07 HDL Cholesterol 64 mg/dL H 09/09/17 07 Hemoglobin A1c 6.2 % H 09/07/17 2250 LDL Cholesterol, Calc 108 mg/dL 09/09/17 07 Triglycerides 109 mg/dL 09/09/17 07 Advance Directives Does the Patient have Medical Advance Directives No/Refused further info Does Pt have Psychiatric Advance Directives? No/Refused further info Does Patient have a Designated Surrogate Decision Maker: No Information About Psychiatric Advance Directives Provided? Yes Discharge Plan Post Hospital Treatment Plan: Substance Abuse/Dual Program
--- NOTE | 2017-09-13 11:31 | SOCIAL WORKER PROG NOTE PSYCH ---
See Addendum Social Work Progress Note Progress Note Behavioral Health and Wellness - [facility] - spoke with Kateryna Nunez, VISCOSITY INSPECTOR . She will have a clinician arrange an appointment with patient - likely for this week. Ms. Nunez was informed DCF ([employer]??) is involved, and patient is refusing IOP level of care. Also, informed of her cocaine use and alcohol use prior to admission, and SI. Faxed referral, Diagnositic assessment and social. NEED TO FAX DISCHARGE SUMMARY TO [facility] [phone]. TC - Dr. Amira Doyle, primary MD - - obtained follow -up visit for 09/14 at 2:30pm. Address: [address] [place] [address]. FAX DISCHARGE SUMMARY TO PCP Fx#[phone].
[2017-09-13 12:17] VITALS: BP 113/67
--- NOTE | 2017-09-13 14:20 | CP SOUTH PROGRESS NOTE PSYCH ---
Psych (Inpt) Progress Note Progress Note Mental Status Examination: The patient was alert & oriented to time, place, and person. She showed good range of affect, she was smiling appropriately, she was calm and cooperative; she was appropriate/no bizarre or strange behaviors. The patient's speech was not slurred and was not pressured She reported that her mood was "good" and denied that she was having thoughts of suicide She was coherent/linear and goal-directed; The patient denied having any violent thoughts or thoughts of homicide, no paranoid ideation; She denied hallucinations, does not appear to be responding to internal stimuli. Assessment: The patient is a 52-year-old who was admitted to the inpatient psychiatric unit on September 08, 2017 because her daughter reported that she was having thoughts of suicide. The patient denied that. Pt with long hx of depression and anxiety complicated by substance use. The patient was detoxified from alcohol without any issues. She was continued on her Prozac and Zyprexa as prescribed by [facility] previously. The patient has been denying thoughts of suicide all along. She seems to be in good spirits and is slated for discharge for , 09/14/2017 Treatment plan update: After having the conference phone call with the patient's daughter, Marina rocha and I decided to postpone the patient's discharge until tomorrow since there seems to have been some need for changes in the patient's aftercare plan including probably the visiting nurses services Continue fluoxetine 20 MG DAILY Olanzapine 5 MG DAILY
--- NOTE | 2017-09-13 15:48 | SOCIAL WORKER PROG NOTE PSYCH ---
JocelineSean herbertne 09/13/17 1542: Social Work Progress Note Progress Note Airplane Tube Builder called patient's outpatient providers to change her previously scheduled appointments due to a change in patient's dicharge date. The following providers were calledMa. Yazmin Dye MD : Patient's appointment was changed to Wednesday, September 20, 2017 at 2:30PM 2. Amira Fuentes MD : Patient's appointment was changed to Tuesday, September 19, 2017 at 2:30PM 3. [facility] (visiting nurse) : A request was made to increase the frequency of patient's services. Daily med service was requested instead of her current weekly med service. The insurance verification representative stated that since she would be discharging from the hospital, daily services would most likely be approved for the short term, but that if she needed daily services long-term, then she would need to be re-evaluated by [facility]. The insurance verification representative gave the following fax number to fax the W-10 to: .
[2017-09-13 15:54] VITALS: BP 129/69
--- NOTE | 2017-09-13 18:36 | SOCIAL WORKER PROG NOTE PSYCH ---
Social Work Progress Note Progress Note Filed 136 report with DCF. Faxed. Copy in chart.
[2017-09-13 19:46] VITALS: BP 133/76
[2017-09-14 07:54] VITALS: BP 139/89
--- NOTE | 2017-09-14 08:18 | CP SOUTH PROGRESS NOTE PSYCH ---
Psych (Inpt) Progress Note Progress Note Vital Signs Date Time Temp Pulse Resp B/P B/P Pulse O2 O2 Flow FiO2 Mean Ox Delivery Rate 09/14 0812 92 139/89 09/14 0754 96.7 92 139/89 09/13 2254 76 133/76 04 1946 98.2 76 133/76 09/13 1554 75 129/69 09/13 1217 78 113/67 Mental Status Examination: The patient was alert & oriented to time, place, and person. She seemed to be in good spirits, good range of affect, smiling appropriately, she was calm and cooperative; her speech was normal, not slurred and was not pressured She reported that her mood was "good" and denied that she was wishing or having thoughts of suicide She was coherent/goal-directed. The patient denied having any violent thoughts or thoughts of homicide, no paranoid ideation; denied hallucinations, does not appear to be responding to internal stimuli. Assessment: 52-year-old , admitted to the inpatient psychiatric unit on September 08, 2017 because her daughter reported that she was having thoughts of suicide (patient denied that). Pt with a history of depression, anxiety, and a substance use disorder. The patient was detoxified from alcohol without any issues. She was continued on her Prozac and Zyprexa as prescribed by [facility]. The patient denied thoughts of suicide all along. She seems to be in good spirits and ready for discharge today (, 09/14/2017). Treatment plan update: Discharge home, follow up with [facility]
--- NOTE | 2017-09-14 08:26 | DISCHARGE SUMMARY REPORT-PSYCH ---
Visit Information Visit Dates/Diagnosis' Admission Date: 09/08/17 Discharge Date: 09/14/17 Reason for Admission: questions about statements of suicide Psy Discharge Primary Diag: Major Depressive Disorder Psy Discharge Secondary Diag: Alcohol use Disorder Hospital Course Significant Lab Findings: Lab Cholesterol 193 MG/DL 09/09/17 0700 Cholesterol/HDL Ratio 3 % 09/09/17 0700 HDL Cholesterol 64 mg/dL H 09/09/17 0700 Hemoglobin A1c 6.2 % H 09/07/17 2250 LDL Cholesterol, Calc 108 mg/dL 09/09/17 0700 Triglycerides 109 mg/dL 09/09/17 0700 Course Complications: The patient did not have any complications while she was on the inpatient psychiatric unit Consultations: The patient had a history and physical examination while she was on the inpatient psychiatric unit. Please refer to the patient's electronic health record for the H&P note Allergies: Coded Allergies: No Known Allergies (04/04/17) Hospital Course/TX Response: September 09, 2017: Dr. Verónica MD's Impression and Plan: Pt with long hx of depression and anxiety complicated by substance use. DSM 5 Diagnosis(es): Major Depressive disorder Unspecified anxiety disorder Substance-induced mood disorder Alcohol use disorder Cocaine dependence/abuse Treatment Plan: Continue home meds Likely much of the mood distrubance driven by substance use Need collateral and family meeting September 10, 2017: Continue current regimen - Tolerating detox w/o difficulty September 11, 2017: Continue the Ativan taper and the detoxification from alcohol Continue fluoxetine 20 MG DAILY; Folic Acid 1 MG DAILY; Furosemide 40 MG DAILY Metformin HCl 500 MG 0800,1700; Multivitamins 1 TAB DAILY Nicotine 2 MG Q2P PRN; Olanzapine 5 MG DAILY Spironolactone 25 MG DAILY; Albuterol Sulfate 2 puffs Q4-6 PRN PRN Carvedilol 6.25 MG BID September 12, 2017: Discontinue CIWA DC Ativan Continue fluoxetine 20 MG DAILY; Olanzapine 5 MG DAILY 09/13/2017: After having the conference phone call with the patient's daughter, Marina rocha and I decided to postpone the patient's discharge until tomorrow since there seems to have been some need for changes in the patient's aftercare plan including probably the visiting nurses services Continue fluoxetine 20 MG DAILY; Olanzapine 5 MG DAILY 09/14/2017: The patient was alert & oriented to time, place, and person. She seemed to be in good spirits, good range of affect, smiling appropriately, she was calm and cooperative; her speech was normal, not slurred and was not pressured, reported that her mood was "good" and denied that she was wishing or having thoughts of suicide; She was coherent/goal-directed. The patient denied having any violent thoughts or thoughts of homicide, no paranoid ideation; denied hallucinations, does not appear to be responding to internal stimuli. Assessment: 52-year-old , admitted to the inpatient psychiatric unit on September 08, 2017 because her daughter reported that she was having thoughts of suicide (patient denied that). Pt with a history of depression, anxiety, and a substance use disorder. The patient was detoxified from alcohol without any issues. She was continued on her Prozac and Zyprexa as prescribed by [facility]. The patient denied thoughts of suicide all along. She seems to be in good spirits and ready for discharge today (, 09/14/2017). Treatment plan update: Discharge home, follow up with [facility] Discharge HBIPS - Tobacco Use Treatment Offered Post DC Medications Offered: Script Given-See Med List Post DC Tobacco Treatment Plan: Refused Tobacco Tx Pgm - EtOH/Drug Use D/O Treatment Offered Post DC Medications Offered: Med Not Indicated for D/O Post DC EtOH/SubAbuse TX Plan: Other SubAbuse/Dual Pgm Metabolic Screening - Screen if on a Neuroleptic Medication - Metabolic screening should include: - Blood Pressure, BMI, Glucose or Hgb A1c, & a - Lipid profile from within the past 365 days. Metabolic Screening Patient on a neuroleptic(s) . Enter below results for Hemoglobin A1C, and lipid panel if obtained during the last 365 days. BMI: 24.900 Blood Pressure: 139/89 Laboratory Results From [facility] (If applicable): Lab Cholesterol 193 MG/DL 09/09/17 0700 Cholesterol/HDL Ratio 3 % 09/09/17 07 HDL Cholesterol 64 mg/dL H 09/09/17 0700 Hemoglobin A1c 6.2 % H 09/07/17 2250 LDL Cholesterol, Calc 108 mg/dL 09/09/17 0700 Triglycerides 109 mg/dL 09/09/17 0700 Discharge Instructions General Discharge Information Multiple Neuroleptics: ([X]) Not Applicable Discharge Diet Heart Healthy Discharge Activity As Tolerated DC Disposition: Home Referrals Ordered Referrals Provider Referral 09/20/17 For Groups: [Yazmin Dye APRN] Yazmin Dye APRN [address] [place], [place] Appointment: Wednesday, September 20, 2017, at 2:30pm Provider Referral 09/15/17 For Groups: [[facility]] Joshua Edmondson LCSW [facility] [phone] Appointment: 09/15/17, at 3pm Provider Referral 09/19/17 For Groups: [Amira Velasco MD] Amira Velasco MD Primary Care Physician [facility] [place], [place] [phone] Appointment: Tuesday, September 19, 2017 at 2:30pm Provider Referral 09/15/17 For Groups: [[facility]] [facility] [phone] Visiting nurse will resume on 09/15/17. They will call you to set up a time. Provider Referral 09/27/17 For Providers: [[facility]] For Groups: [Smoking Cessation Group] [facility] [address] [place], [place] [phone] Group meets every other Monday at 4:00pm Next group: 09/27/17, at 4:00pm Prescriptions Stop taking the following medications: Lisinopril (Lisinopril) 20 MG TABLET ORAL DAILY Qty = 30 Zolpidem Tartrate (Zolpidem Tartrate) 10 MG TABLET ORAL Every night Qty = 30 Fluvoxamine Maleate (Fluvoxamine Maleate) 50 MG TABLET ORAL Every night Qty = 30 Nebivolol HCl (Bystolic) 5 MG TABLET ORAL DAILY Qty = 30 Enalapril Maleate (Enalapril Maleate) 20 MG TABLET ORAL DAILY Qty = 90 Continue taking these medications: Albuterol Sulfate (Proair Hfa) 90 MCG HFA.AER.AD 2 Puff Inhale through mouth EVERY 4-6 HOURS NEEDED as needed for sob Qty = 1 Comments: Last Taken:NOT USED IN THE HOSPITAL Time: Folic Acid (Folic Acid) 1 MG TABLET 1 Tablet ORAL DAILY Qty = 14 Comments: Last Taken:NOT TAKEN IN HOSPITAL Time: Furosemide (Furosemide) 40 MG TABLET 1 Tablet ORAL DAILY Qty = 30 Comments: Last Taken:09/14/17 Time:0800 Carvedilol (Carvedilol) 6.25 MG TABLET 1 Tablet ORAL TWICE DAILY Qty = 60 Comments: Last Taken:09/14/17 Time:0800 Albuterol Sulfate (Albuterol Sulfate) 2.5 MG/3 ML (0.083 %) VIAL.NEB 1 Vial Inhale Solution EVERY 4 HOURS NEEDED as needed for SHORTNESS OF BREATH Qty = 375 Comments: Last Taken:NOT USED IN THE HOSPITAL Time: Fluticasone Propionate (Fluticasone Propionate) 50 MCG/ACTUATION SPRAY.SUSP 2 Echo Both sides of nose DAILY Qty = 16 Comments: Last Taken:NOT TAKEN IN HOSPITAL Time: Spironolactone (Spironolactone) 25 MG TABLET 1 Tablet ORAL DAILY Qty = 30 Comments: Last Taken:09/14/17 Time:0800 Metformin HCl (Metformin HCl) 500 MG TABLET 1 Tablet ORAL TWICE DAILY Qty = 180 Comments: Last Taken:09/14/17 Time:0800 Fluoxetine HCl (Fluoxetine HCl) 20 MG CAPSULE 1 Capsule ORAL DAILY Qty = 30 Comments: Last Taken:09/13/17 Time:0749 This prescription has been renewed Olanzapine (Olanzapine) 5 MG TABLET 1 Tablet ORAL DAILY Qty = 30 Comments: Last Taken:09/14/17 Time:0800 This prescription has been renewed Start taking the following new medications: Nicotine (Nicorelief) 2 MG GUM 2 Milligram ORAL EVERY 2 HOURS NEEDED as needed for nicotine cravings Qty = 60 No Refills Comments: Last Taken:09/13/17 Time:09 Other Inst/Recommendations follow up with your broomcorn grader Studies Pending at Discharge none Copies To: N/A Other Inst/Recommendations follow up with your broomcorn grader Studies Pending at Discharge none
[2017-09-14 11:54] VITALS: BP 122/68
--- NOTE | 2017-09-14 16:48 | SOCIAL WORKER PROG NOTE PSYCH ---
Social Work Progress Note Progress Note 4:45pm This va underwriter returned call from Marilou at [facility] ([phone]). A vm with call back number was provided.
--- NOTE | 2017-09-14 18:15 | SOCIAL WORKER PROG NOTE PSYCH ---
See Addendum Social Work Progress Note Progress Note This designer/writer met with patient. She expressed that she was looking forward to discharge today. She was agreeable to the [facility] service and accepted the appointment for Monday with Ibeth Edmondson. Patient deneid SI/HI/AH/VH. She identified a safety plan to "call my friend" and also agreed to utilize the crisis numbers and warm lines that will be provided to her upon discharge. Patient had been previously resistant to AA, however, accepted an AA meeting book and stated that she would consider attending. Patient accepted the following appointments: Provider Referral 09/20/17 For Groups: [Yazmin Dye APRN] Yazmin Dye APRN [address] Appointment: Wednesday, September 20, 2017, at 2:30pm Provider Referral 09/15/17 For Groups: [[facility]] Joshua Edmondson, [facility] [phone] Appointment: 09/15/17, at 3pm Provider Referral 09/19/17 For Groups: [Amira Velasco MD] Amira Velasco MD Primary Care Physician [address] [place] [address] Appointment: Tuesday, September 19, 2017 at 2:30pm Provider Referral 09/15/17 For Groups: [[facility]] [facility] [phone] Visiting nurse will resume on 09/15/17. They will call you to set up a time. Provider Referral 09/27/17 For Providers: [[facility]] For Groups: [Smoking Cessation Group] [facility] [address] [place] [address] Group meets every other Monday at 4:00pm Next group: 09/27/17, at 4:00pm A veyo ride was scheduled for the patient (ref: [id number]), but later cancelled due to the patient stating that she had arranged for transportation from a family member.
--- NOTE | 2017-09-15 17:56 | SOCIAL WORKER PROG NOTE PSYCH ---
Social Work Progress Note Progress Note This display card writer returned call from Serenity, nurse correctional case records supervisor with [facility] who is working with the patient. She stated that they are unable to provide daily care, but will be providing services 3x/week for the first two weeks and then step down to 2x/week. She stated that she is also working on a referral to a home health aide within [facility]. Serenity stated that she did not receive the W10 or Patient Health Summary. This display card writer spoke with Ga at [facility] regarding the W10 and Patient Health Summary. He stated that the documents had been received and he would contact Serenity regarding this matter.
== END 2017-09-14 12:50 | DRG 754 ==
LOC: ERH 21:50 → CP SOUTH 09-08 19:47 → ERHI 09-08 19:47 → ENTRNSPT 09-08 22:37 → EDTRNSPT 09-08 22:40 → EDTRNSPTSTS 09-08 22:40 → CMPTRNSPT 09-08 23:00 → CP SOUTH 09-08 23:01 → ENRESERV 09-08 23:59 → CP SOUTH 09-11 10:29
PROVIDERS: Emergency Medicine; Student in an Organized Health Care Education/Training Program
DX: F32.9 Major depressive disorder, single episode, unspecified (principal); Z72.89 Other problems related to lifestyle; F10.10 Alcohol abuse, uncomplicated
CPT/HCPCS: 36415; 80307; 82436; 96372; 99291; G0463; G0480; J1200; J1630; J3490

== ENCOUNTER 2017-09-26 21:14 | Inpatient (IN) | payer OTHER ==
[~2017-09-26] VITALS: Ht 154.9 cm; Wt 63.5 kg
[~2017-09-26 21:14] MED LIST changes: +ALBUTEROL2.5 MG/3 M INH/SOL; +BYSTOLIC5 M1 PO; +CARVEDILOL6.25 M1 PO; +ENALAPRIL MALEA20 M1 PO; +FLUOXETINE HCL20 M2 PO; +FLUTICASONE PRO16 GM NASB; +FLUVOXAMINE MAL50 MG PO; +FOLIC ACID1 M1 PO; +FUROSEMIDE40 M1 PO; +LISINOPRIL20 M1 PO; +METFORMIN HCL500 M3 PO; +NICORELIEF2 MG PO; +OLANZAPINE5 M2 PO; +SPIRONOLACTONE25 M1 PO; +ZOLPIDEM TARTRA10 M1 PO
--- NOTE | 2017-09-26 21:33 | ED PSYCHIATRIC COMPLAINT ---
See Addendum History of Present Illness General Chief Complaint: ETOH/Drug Related Complaint Stated Complaint: ? DRUG OD Source: EMS Exam Limitations: poor historian Vital Signs & Intake/Output Vital Signs & Intake/Output 09/26/17 The patient will be signed out to Dr. Cavazos at 11 PM Allergies Coded Allergies: No Known Allergies (04/04/17) Triage Note: PT BIBA FROM HOME FOR ?XANAX OVERDOSE. PT'S DAUGHTER CALLED EMS BECAUSE SHE WAS CONCERED PT OVERDOSED ON XANAX AND USED COCAINE. EMS STATES ON ARRIVAL TO HOME PT WAS AMBULATORY AND AOX3. PER EMS PT HAS HX CHF AND KIDNEY FAILURE AND IS NONCOMPLIANT WITH MEDS. PT DENIES SI/HI AT THIS TIME. SECURITY PRESENT FOR WANDING Triage Nurses Notes Reviewed? yes Onset: Abrupt Duration: hour(s): Timing: recent history HPI: 09/26/17 10 PM 52-year-old female presents to the emergency department for Xanax overdose. According to the patient's daughter she's been depressed and acting irregular. The patient states she's been off her psychiatric meds. She does have a history of cardiac disease and congestive heart failure. She's agitated and inappropriate at times. She was brought in on a police paper. (Juma Nguyen DO) Reconcile Medications Albuterol Sulfate 2.5 MG/3 ML (0.083 %) VIAL.NEB 1 Vial INH/YOSELIN Q4P PRN SHORTNESS OF BREATH (Reported) Albuterol Sulfate (Proair Hfa) 90 MCG HFA.AER.AD 2 PUF INH Q4-6 PRN PRN sob Alprazolam 2 MG TABLET 1 TAB PO BIDP PRN ANXIETY (Reported) Atorvastatin Calcium 20 MG TABLET 1 TAB PO DAILY CHOLESTEROL (Reported) Carvedilol 6.25 MG TABLET 1 TAB PO BID HEART (Reported) Fluoxetine HCl 20 MG CAPSULE 1 CAP PO DAILY MENTAL HEALTH Fluticasone Propionate 50 MCG/ACTUATION SPRAY.SUSP 2 SPRAY NASB DAILY ALLERGIES (Reported) Fluvoxamine Maleate 50 MG TABLET 1 TAB PO QPM UNK (Reported) Folic Acid 1 MG TABLET 1 TAB PO DAILY VITAMIN SUPPORT (Reported) Furosemide 40 MG TABLET 1 TAB PO DAILY WATER RETENTION (Reported) Lisinopril 20 MG TABLET 1 TAB PO DAILY BP (Reported) Metformin HCl 500 MG TABLET 1 TAB PO BID DIABETES (Reported) Nebivolol HCl (Bystolic) 5 MG TABLET 1 TAB PO DAILY BP (Reported) Nicotine (Nicorelief) 2 MG GUM 2 MG PO Q2P PRN nicotine cravings Olanzapine 5 MG TABLET 1 TAB PO DAILY MENTAL HEALTH Spironolactone 25 MG TABLET 1 TAB PO DAILY HEART (Reported) Zolpidem Tartrate 10 MG TABLET 1 TAB PO QPMP INSOMNIA (Reported) (Surinder Gotti MD) Past History Travel History Traveled to [place] past 21 day No Medical History Any Pertinent Medical History? 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 No (Juma Nguyen DO) Review of Systems Review of Systems Constitutional: Denies: fever. EENTM: Reports: no symptoms. Respiratory: Reports: no symptoms. Cardiovascular: Reports: no symptoms. GI: Reports: no symptoms. Genitourinary: Reports: no symptoms. Musculoskeletal: Reports: no symptoms. Skin: Reports: no symptoms. Neurological/Psychological: Reports: anxiety, depressed. Hematologic/Endocrine: Reports: no symptoms. Immunologic/Allergic: Reports: no symptoms. (Juma Nguyen DO) Physical Exam Physical Exam General Appearance: alert, awake, anxious, mild distress Head: atraumatic, normal appearance Eyes: Bilateral: normal appearance, PERRL, EOMI. Ears, Nose, Throat: normal pharynx, normal ENT inspection Neck: normal inspection, supple, full range of motion Respiratory: normal breath sounds, chest non-tender, no respiratory distress Cardiovascular: regular rate/rhythm Gastrointestinal: non-tender Extremities: normal range of motion Neurological/Psychiatric: awake, agitated, alert Appearance/Memory/Insight: disheveled Behavoir/Eye Contact/Speech: uncooperative Thoughts/Hallucinations: flight of ideas Skin: intact, normal color, warm/dry SAD PERSONS SAD PERSONS Response Value Age <19 or >45 years? yes 1 Depression/Hopelessness? yes 2 Previous Attempts/Psych Care yes 1 Excessive Ethanol/Drug Use? yes 1 Rational Thinking Loss? yes 2 Single//? yes 1 Social Support? has no support 1 Total 9 SAD PERSONS Done? yes (Juma Nguyen DO) Progress Differential Diagnosis: drug intoxication, drug overdose, drug withdrawal, DEPRESSION Plan of Care: Orders Procedure Date/time Status Regular Diet 09/28 D Active Continuous Observation Monitor 09/28 1900 Active Continuous Observation Monitor 09/28 1500 Active Patient Data - inpatient psych 09/28 1409 Active Admit to inpatient psych 09/28 1409 Active Continuous Observation Monitor 09/28 1100 Active Continuous Observation Monitor 09/28 0700 Active Vital Signs 09/28 UNK Active Nursing Misc 09/28 UNK Active FingerStick- Glucose 09/28 UNK Active CIWA 09/28 UNK Active Alternative Nursing Therapy 09/28 UNK Active Activity/Ambulation 09/28 UNK Active Intake & Output 09/27 0458 Active Current Medications Sig/Traci Start time Last Medication Dose Stop Time Status Admin Fluoxetine HCl 20 MG DAILY 09/29 0900 CAN (Prozac) Fluticasone 2 SPRAY DAILY 09/29 0900 AC Propionate (Flonase) Furosemide 40 MG DAILY 09/29 0900 AC (Lasix) Nebivolol 5 MG DAILY 09/29 0900 AC (Bystolic) Spironolactone 25 MG DAILY 09/29 0900 AC (Aldactone) Carvedilol 6.25 MG BID 09/28 2100 AC (Coreg) Atorvastatin Calcium 20 MG 1700 09/28 1700 AC (Lipitor) Metformin HCl 500 MG 0800,1700 09/28 1700 AC (Glucophage) Lorazepam 2 MG Q2P PRN 09/28 1430 AC (Ativan) Lorazepam 1 MG Q2P PRN 09/28 1430 AC (Ativan) Olanzapine 5 MG BID 09/28 1419 AC 09/28 (Zyprexa) 1539 Folic Acid 1 MG DAILY 09/28 1417 AC 09/28 (Folic Acid) 09/30 09 1538 Multivitamins 1 TAB DAILY 09/28 1417 AC 09/28 (Theragran Vitamins) 1538 Thiamine HCl 100 MG DAILY 09/28 1417 AC 09/28 (Vitamin B1) 09/30 09 1539 Acetaminophen 650 MG Q6P PRN 09/28 1415 AC (Tylenol) Al Hydroxide/Mg 30 ML Q4-6 PRN PRN 09/28 1415 AC Hydroxide (Maalox Plus) Benztropine Mesylate 1 MG Q6P PRN 09/28 1415 AC (Cogentin 1 MG Tablet) Benztropine Mesylate 1 MG Q6P PRN 09/28 1415 AC (Cogentin) Haloperidol 5 MG Q6P PRN 09/28 1415 AC (Haldol) Haloperidol 5 MG Q6P PRN 09/28 1415 AC (Haldol) Lorazepam 2 MG Q6P PRN 09/28 1415 AC (Ativan) Magnesium Hydroxide 30 ML AT BEDTIME PRN 09/28 1415 AC (Milk Of Magnesia) Nicotine 2 MG Q2P PRN 09/28 1415 AC (Nicotine) Albuterol Sulfate 2 PUF Q6P PRN 09/27 1500 AC 09/28 (Ventolin) 0205 Pre-Hospital EKG: PENDING Comments: 09/26/17 10 PM The patient was assigned a sitter. Labs were sent. She will be evaluated by crisis. She will be signed out to Dr. Cavazos at 11 p.m. (Juma Nguyen DO) Comments: 09/27/2017 7:28:27 PM patient signed out to me by Dr. Cavazos at shift roving changer. Patient has had an uneventful emergency department stay during the day shift. Patient signed out to Dr. Stein at shift roving changer. (Krystyna QUIGLEY,Juma Alexis) Hand-Off Endorsed To: Surinder Gotti MD Endorsed Time: 0700 Pending: consult (Sarita QUIGLEY,Ga Capone) Departure Departure Disposition: STILL A PATIENT Condition: Stable Clinical Impression Primary Impression: Depression Secondary Impressions: Overdose Referrals: Unknown (PCP/Family) Departure Forms: Customer Survey General Discharge Information (Juma Nguyen DO) Departure Comments PT SIGNED OUT TO DR. PAUL AT 09/27/17, 7AM. (Dirk QUIGLEY,Adriel Boles) Psych Admission Note Psychiatric Admission: I have seen and evaluated RODOLFO BALBUENA. I have also reviewed all the pertinent lab results and diagnostic results. RODOLFO BALBUENA will be admitted to our inpatient Psychiatric unit for treatment and care. (Surinder Gotti MD) Critical Care Note Critical Care Note Critical Care Time: 30-74 min (Juma Nguyen DO)
[2017-09-26 22:31] LABS: ABSOLUTE BASOPHIL COUNT 0.1 /CUMM (0.0-0.2); ABSOLUTE EOSINOPHIL COUNT 0.2 /CUMM (0.0-0.7); ABSOLUTE GRANULOCYTE CT 4.5 /CUMM (1.4-6.5); ABSOLUTE LYMPH COUNT 2.6 /CUMM (1.2-3.4); ABSOLUTE MONOCYTE COUNT 0.5 /CUMM (0.10-0.60); BASOPHIL % 0.6 % (0.0-2.0); EOSINOPHIL % 3.1 % (0-5); GRANULOCYTE % 56.7 % (42.2-75.2); HEMATOCRIT 44.3 % (37-47); MEAN CORPUSCULAR HGB CONC 32.3 G/DL (33.0-37.0); MEAN CORPUSCULAR VOLUME 86.7 FL (81.0-99.0); MEAN PLATELET VOLUME 7.5 FL (7.4-10.4); PLATELET COUNT 355 /CUMM (130-400); RBC DISTRIBUTION WIDTH 22.3 % (11.5-14.5); RED BLOOD CELL CT 5.12 /CUMM (4.20-5.40); WHITE BLOOD CELL COUNT 7.9 /CUMM (4.8-10.8)
--- NOTE | 2017-09-27 11:53 | ED PSYCH CRISIS CONSULTATION ---
See Addendum Crisis Consult Basic Assessment Date of Consult: 09/27/17 Responsible Person/Accompanied By: Self Insurance Authorization: Insurance #1: Insurance name: [employer] C[employer]A Phone number: Policy number: [id number] Group number: Authorization number: ED Provider: Patient's ED Provider: Juma Nguyen DO Primary Care Physician: Patient's PCP: Unknown PCP's Phone Number: Current Psychiatrist: Dr. Amira Thorpe, [place] Chief Complaint: ETOH/Drug Related Complaint Patient's Quote: "My daughter wants me to be in a mental place". Present Illness: Pt is a 52 year old female BIBA to [facility] last night on a PEER from her home. Pt's daughter called 911 after pt was found in bed at home in an altered state. Daughter stated that pt had not been answering the phone and didn't let the visiting nurses into her home over the weekend. Daughter stated that she had to break into the pt's home and found pt in bed sleeping in her urine. Pt stated that mother also had family pictures spread around the area. Daughter believes mother has been overdosing on her medications. Daughter expressed a lot of concern for mother's safety and believes mother is acutely depressed. Pt is medically compromised and daughter fears mother's noncompliant behavior will kill her. Daughter also stated that mother was sent to [facility] on Monday for similar behavior. Pt was there in the ED for the day and then released. Upon evaluation pt stated, "I've been sleeping a lot. I don't know if the pills are good for me? My daughter wants me to be in a mental place. I have a psychiatrist and she's giving me strong medications. I nearly passed out. It's not looking good for me". Pt explained that she is very depressed over her medical situation, but admits she wants to live. Pt was recently inpatient here at [facility] from 09/08/17 - 09/15/17. Pt is treated on an outpatient basis at [facility] and by Yazmin Dye APRN out of [place]. Pt is prescribed Xanax, Prozac and Zyprexa. Pt stated that she has heart and liver disease. She stated, "my heart's valves are leaking and my liver is not doing so good". She stated that she also has Diabetes type 2 and hypertension. Pt stated that she lives with three of her children. Her only source of income is child support. She stated that she is in the process of applying for social security disability. Pt stated that she was born in the [place] and completed the 6th grade. Through the years she's had a history of working many various jobs. She stated that she has 4 daughters and 2 sons. She spoke very fondly of her children and stated that if she doesn't see her children she would be lost. Clinician was able to reach pt's daughter Lory Reis [phone] this morning. Lory stated that pt had been diagnosed with the heart and liver failure approximately two months ago. Lory also stated that the medical problems are directly related to pt's history of alcohol dependence. Lory stated that her mother used to also abuse Ecstacy and opiates. Lory reported that pt had two past suicide attempts both by overdosing. Lory claimed that a few years ago pt overdosed on opiates and nearly . She lost consciousness and was hospitalized. Again approximately 8 months ago pt overdosed. Lory stated pt was given Narcan at [facility]. Pt's toxicology report was positive for ETOH, marijuana and benzodiazepines. This morning pt was alert and oriented. She was cooperative and receptive toward the evaluation. Pt's thought process was circumstantial. Her speech and psychomotor functions were slowed. She also complained of feeling dizzy. She presented with depressed mood and congruent affect. Pt, however, denied suicidal ideations stating that she's trying to live. C-SSRS completed. Pt has a history of suicidal attempts. Pt has serious and life threatening medical problems. Pt is further compromising her medical condition with her continued substance abuse. Pt suffering major depressive episode with anxiety. Pt's protective factors include identified reasons for living, responsibility to her children and her strong supportive family network. Case reviewed with crop consultant psychiatrist. Given pt's recent hospitalization, ED visit, ongoing acute depression and continued high risk self destructive behavior she is considered at heightened risk for self harm and and inpatient level of care is recommended. Patient's Address: [address] [place] [address] Other Phone Number: Who Do You Live With? Other (see notes) (three children) Family/Informants Interviewed: Daughter Lory reis [phone] Allergies - Coded Allergies: No Known Allergies (04/04/17) Current Medications - Scheduled Medications Carvedilol 6.25 MG TABLET 1 TAB PO BID HEART #60 (Reported) Entered as Reported by Mitchell Montoya on 09/08/17 0914 Fluoxetine HCl 20 MG CAPSULE 1 CAP PO DAILY MENTAL HEALTH #30 Prescribed by London Collado MD on 09/13/17 Fluticasone Propionate 50 MCG/ACTUATION SPRAY.SUSP 2 SPRAY NASB DAILY ALLERGIES #16 (Reported) Entered as Reported by Mitchell Montoya on 09/08/17 0915 Folic Acid 1 MG TABLET 1 TAB PO DAILY VITAMIN SUPPORT #14 (Reported) Entered as Reported by Mitchell Montoya on 09/08/17 0914 Furosemide 40 MG TABLET 1 TAB PO DAILY WATER RETENTION #30 (Reported) Entered as Reported by Mitchell Montoya on 09/08/17 0914 Metformin HCl 500 MG TABLET 1 TAB PO BID DIABETES #180 (Reported) Entered as Reported by Mitchell Montoya on 09/08/17 0916 Olanzapine 5 MG TABLET 1 TAB PO DAILY MENTAL HEALTH #30 TAB Prescribed by London Collado MD on 09/13/17 Spironolactone 25 MG TABLET 1 TAB PO DAILY HEART #30 (Reported) Entered as Reported by Mitchell Montoya on 09/08/17 0915 Scheduled PRN Medications Albuterol Sulfate 2.5 MG/3 ML (0.083 %) VIAL.NEB 1 Vial INH/YOSELIN Q4P PRN SHORTNESS OF BREATH #375 (Reported) Entered as Reported by Mitchell Montoya on 09/08/17 0915 Albuterol Sulfate (Proair Hfa) 90 MCG HFA.AER.AD 2 PUF INH Q4-6 PRN PRN sob #1 INHAL Prescribed by Surinder Gotti MD on 04/04/17 Nicotine (Nicorelief) 2 MG GUM 2 MG PO Q2P PRN nicotine cravings #60 GUM Prescribed by London Collado MD on 09/13/17 Laboratory Results: Laboratory Tests 09/27/17 0123: Urine Opiates Screen < 100, Methadone Screen < 40, Barbiturate Screen < 60, Ur Phencyclidine Scrn < 6.00, Amphetamines Screen < 100, U Benzodiazepines Scrn > 800 H, Urine Cocaine Screen < 50, Urine Cannabis Screen 59.30 H, Urine Test NEGATIVE 09/26/17 2216: Anion Gap 11, Estimated GFR > 60, BUN/Creatinine Ratio 18.8, Glucose 112 H, Calcium 9.8, Total Bilirubin 0.5, AST 20, ALT 27, Alkaline Phosphatase 95, Troponin I < 0.01, Total Protein 8.0, Albumin 4.6, Globulin 3.4, Albumin/ Globulin Ratio 1.4, CBC w Diff NO MAN DIFF REQ, RBC 5.12, MCV 86.7, MCH 28.0, MCHC 32.3 L, RDW 22.3 H, MPV 7.5, Gran % 56.7, Lymphocytes % 33.7, Monocytes % 5.9, Eosinophils % 3.1, Basophils % 0.6, Absolute Granulocytes 4.5, Absolute Lymphocytes 2.6, Absolute Monocytes 0.5, Absolute Eosinophils 0.2, Absolute Basophils 0.1, Salicylates < 1.0, Acetaminophen < 10.0 L, Serum Alcohol 60.0 09/26/176: Troponin I Cancelled, Serum Alcohol Cancelled (Deon Mishra LPC) Addendum Addendum Patient reassessment completed. Patient presents with bright incongruous affect. She reported that she was concerned about "water in my liver" and presented with delusional speech. Patient was advised about crisis plan for bed search and that crisis will reassess in the morning. She reported no concerns. 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 Physical Limitations (Interventions): None reported. Psychiatric Treatment History Psych Treatment Psychiatric Treatment Yes Inpatient Treatment Yes Outpatient Treatment Yes Location of Treatment [facility] for Treatment Depression Dates of Treatment Inpatient-08/27, current outpatient with [facility] and Ms. Dye Response to Treatment Pt noncompliant Diagnosis by History: Bipolar Disorder Depression Substance Use/Abuse History Drug Use/Abuse 1 Substances Used/Abused Yes Substance Used/Abused Alcohol First Use unknown Last Used yesterday How much used/taken unknown How often frequent as of recently For how long Many years Drug Use/Abuse 2 Substances Used/Abused Yes Substance Used/Abused Marijuana First Use unknown Last Used yesterday How much used/taken unknown How often frequent For how long unknown Route of use smoke Drug Use/Abuse 3 Substances Used/Abused Yes Substance Used/Abused Cocaine First Use Unknown Last Used unknown How much used/taken unknown How often occasional For how long unknown Route of use sniff Substance Abuse Treatment Substance Abuse Treatment Past Substance Abuse [place] No Inpatient Treatment No Outpatient Treatment No Comments: Pt's daughter stated that pt has a history of ETOH dependence. Daughter also stated that pt has a hx of abusing Ecstacy and pills (opiates) (Deon Mishra LPC) Current Mental Status Mental Status Orientation: Person, Place, Situation Affect: Constricted, Depressed Speech: Delayed, Slurred, Soft Neuro-vegetative: Concentration Poor, Energy Increased, Hypersomnia, Sleep Disturbance Appearance Appearance- Dress/Hygiene: Pt is disheveled and dressed in hospital scrubs. Behaviors Thought Process: mildly circumsatantial Thought Content: WNL Memory: Impaired Insight: Poor SI/HI Risk Assessment Past Suicidal Ideation/Attempts Yes Current Suicidal Ideation/Att No Past Homicidal Ideation/Att: No Current Homicidal Ideation/Attempts No Degree of Intent: Self Destructive/No Danger To: Self Gravely Disabled: Lack of Insight, Poor Impulse Control, Poor Judgment Risk Factors: access to lethal means, chronic/serious med cond., high anxiety/ distress, history of suicide atmpts, SA/MH hospitalized, substance abuse Lethality Ratin PTSD Checklist PTSD Done? patient declined ED Management Sitter: Yes Restraints: No (Deon Mishra LPC) DSM5/PS Stressors/Medical Prob Diagnosis' (DSM 5, Stressors, Medical): F32.9 Unspecified Depressive Disorder F41.9 Unspecified Anxiety Disorder F10.20 Alcohol Use Disorder, Severe F14.20 Cocaine Use Disorder, Moderate F12.20 Cannabis Use Disorder, Severe Current GAF: 30 (Deon Mishra LPC) Departure Disposition Psych Medical Clearance Date: 09/27/17 Medically Cleared at: 0915 Time Started: 914 Time Ended: 999 Psychiatrist Consulted: Dr. Collado Date Disposition Established: 09/27/17 Time Disposition Established: 1100 Plan for Disposition - Modality: Inpatient Psychiatry Facility: Rationale for Disposition: Case reviewed with crop consultant psychiatrist. Given pt's recent hospitalization, ED visit, ongoing acute depression and continued high risk self destructive behavior she is considered at heightened risk for self harm and and inpatient level of care is recommended. Type of IP Admission: Voluntary Referrals Unknown (PCP/Family) (Deon Mishra LPC)
[2017-09-28] MEDS ORDERED: ATORVASTATIN CA20 M1 PO (16:00)
[2017-09-28] MEDS ORDERED: ALPRAZOLAM2 M2 PO (16:00)
[2017-09-28] MEDS ORDERED: FLUVOXAMINE MAL50 MG PO (16:00)
[2017-09-28] MEDS ORDERED: LISINOPRIL20 M1 PO (16:01)
[2017-09-28] MEDS ORDERED: ZOLPIDEM TARTRA10 M1 PO (16:01)
[2017-09-28] MEDS ORDERED: BYSTOLIC5 M1 PO (16:01)
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
[2017-09-28 20:52] VITALS: BP 132/88
[2017-09-29] VITALS (7 sets, daily range): BP systolic 101–136; BP diastolic 68–75
--- NOTE | 2017-09-29 14:07 | CPS PROVIDER INIT ASMT PSYCH ---
Psychiatric Admission Lime Mixer's Note Reviewed: Yes Patient Seen and Examined: Yes Identifying Information: Pt is a 52 year old female JARRED Alegre last night on a PEER from her home. Chief Complaint: "My daughter wants me to be in a mental place". Reaction to Hospitalization: The patient was admitted voluntarily History of Present Illness Onset of Illness: Pt is a 52 year old female JARRED Alegre last night on a PEER from her home. Pt's daughter called 911 after pt was found in bed at home in an altered state. Daughter stated that pt had not been answering the phone and didn't let the visiting nurses into her home over the weekend. Daughter stated that she had to break into the pt's home and found pt in bed sleeping in her urine. Pt stated that mother also had family pictures spread around the area. Daughter believes mother has been overdosing on her medications. Daughter expressed a lot of concern for mother's safety and believes mother is acutely depressed. Pt is medically compromised and daughter fears mother's noncompliant behavior will kill her. Daughter also stated that mother was sent to [facility] on Monday for similar behavior. Pt was there in the ED for the day and then released. Circumstances Leading to Admission: See above Problem(s) Justifying Need for Admission: See above Past Psychiatric History Past Diagnosis(es)- if any: Major Depressive Disorder Generalized anxiety disorder Panic disorder Polysubstance use disorder Past Precipitating Factors- if any: substance use - Include inpatient and outpatient treatment Treatment History: Prior admission Date: 09/08/17-09/14/17 Reason for Admission: questions about statements of suicide Psy Discharge Primary Diag: Major Depressive Disorder Psy Discharge Secondary Diag: Alcohol use Disorder History of Suicide Attempts or Gestures The patient reportedly may have had several overdoses, However the patient reports only 1 suicide attempt by overdose which lead to multiple medical problems Substance Abuse History: History of tobacco, Alcohol, cocaine Allergies: Coded Allergies: No Known Allergies (04/04/17) Home Med List: Carvedilol 6.25 MG TABLET 1 TAB PO BID HEART #60 (Reported) Entered as Reported by Mitchell Montoya on 09/08/17 0914 Fluoxetine HCl 20 MG CAPSULE 1 CAP PO DAILY MENTAL HEALTH #30 Prescribed by London Collado MD on 09/13/17 Fluticasone Propionate 50 MCG/ACTUATION SPRAY.SUSP 2 SPRAY NASB DAILY ALLERGIES #16 (Reported) Entered as Reported by Mitchell Montoya on 09/08/17 0915 Folic Acid 1 MG TABLET 1 TAB PO DAILY VITAMIN SUPPORT #14 (Reported) Entered as Reported by Mitchell Montoya on 09/08/17 0914 Furosemide 40 MG TABLET 1 TAB PO DAILY WATER RETENTION #30 (Reported) Entered as Reported by Mitchell Montoya on 09/08/17 0914 Metformin HCl 500 MG TABLET 1 TAB PO BID DIABETES #180 (Reported) Entered as Reported by Mitchell Montoya on 09/08/17 0916 Olanzapine 5 MG TABLET 1 TAB PO DAILY MENTAL HEALTH #30 TAB Prescribed by London Collado MD on 09/13/17 Spironolactone 25 MG TABLET 1 TAB PO DAILY HEART #30 (Rep - Include any medical condition(s) that may - impact the patient's recovery/remission Past Medical History: Mitral valve disease, diabetes, reportedly diagnosed with congestive heart failure failure at one point Past History Medical History Neurological: MIGRANES EENT: NONE Cardiovascular: CHF, hypertension Respiratory: asthma, bronchitis Gastrointestinal: NONE Hepatic: NONE Renal: chronic kidney disease Musculoskeletal: NONE Psychiatric: depression Endocrine: NONE Blood Disorders: NONE Cancer(s): NONE COOK SPECIALTY/Reproductive: NONE History of MRSA: No History of VRE: No History of CDIFF: No Isolation History: Standard Influenza Vaccine: 04/12/17 Surgical History Surgical History: none Psychiatric Family/Social Hx Family History Psychiatric Illness: mother with anxiety and depression Substance Use: Mother reportedly has history of substance use Suicides: Patient denied suicides in the family Other Family History: Lives with her and her age children no other adults in the house Social History Living Situation: The patient reported that she lives in a house that is owned by her daughter and son-in-law Significant Relationships (family/friends): Adult daughters and patient's under age children Education: Sixth grade education Vocation/Occupation: Unemployed, on disability Legal: Denied legal entanglements Healthly Behaviors Screening Tobacco Screening Tobacco Use from ED Docu: Refused to answer - If tobacco counseling indicated - the following topics are required. - #1 Recognizing dangerous situations. - #2 Coping Skills. - #3 Basic information about quitting. Status of Tobacco Cessation Counseling: #1, #2 AND #3 Completed Cessation Med Status Nicotine Patch Ordered Alcohol Screening - ETOH screen POS if BAL >=80 or Audit-C>= M4/F3 Audit-C Score from Diag Assess: 8 Blood Alcohol Level: Laboratory Tests 09/266 2216 Toxicology Serum Alcohol (<10 MG/DL) Cancelled 60.0 Alcohol Use Screening Results: Pos per Audit C &/or BAL - If ETOH counseling indicated - the following topics are required. - #1 Express concern about the patient's - drinking at unhealthy levels, include informing - of national norms for moderate drinking: - men <= 14 drinks/week, max 4 drinks/occasion - women <= 7 drinks/week, max 3 drinks/occasion - #2 Providing feedback, including linking alcohol to - negative physical effects (liver injury, hypertension) - negative emotional effects (relationship problems and - depression) - negative occupational consequences (reduced work - performance) - #3 Advising the patient to abstain from alcohol or - to drink below national norms for moderate drinking - (as listed above). Status of ETOH Use Counseling: #1, #2 AND #3 Completed. Metabolic Screening - Screen if on a Neuroleptic Medication - Metabolic screening should include: - Blood Pressure, BMI, Glucose or Hgb A1c, & a - Lipid profile from within the past 365 days. Metabolic Screening Patient on a neuroleptic(s) . Enter below results for Hemoglobin A1C, and lipid panel if obtained during the last 365 days. BMI: 26.400 Blood Pressure: 108/68 Laboratory Results From [facility] (If applicable): Lab Cholesterol 193 MG/DL 09/09/17 0700 Cholesterol/HDL Ratio 3 % 09/09/17 0700 HDL Cholesterol 64 mg/dL H 09/09/17 0700 Hemoglobin A1c 6.2 % H 09/07/17 2250 LDL Cholesterol, Calc 108 mg/dL 09/09/17 0700 Triglycerides 109 mg/dL 09/09/17 0700 Exam and Plan Mental Status Examination Ambulation Status: The patient was steady on her feet Appearance: Unremarkable appearance Attitude towards examiner: Patient was calm and cooperative and friendly Psychomotor activity: Normal psychomotor activity Behavior: No abnormal behaviors Quality of speech: Normal speech, not pressured, not slurred Affect: Good range of affect Mood: Denied feeling depressed Suicidal Ideation: Denied thinking of suicide Homicidal Ideation: Denied thinking of homicide Hallucinations: Denied hallucinations Paranoid/Delusional Material: Denied feeling paranoid, there were no delusions during the interview Difficulties with thought organization: No difficulties with thought organization Insight: Poor insight Judgment: Poor judgment Orientation: Alert and oriented to time, place, and person. Cognition: Some difficulties with attention and concentration Memory Function: No evidence of short-term memory impairment Estimate of intellectual functioning: Average Assets/Strengths Patient Identified Assets/Strengths: The patient is likable, social, and has a supportive family Impression/Plan Impression and Plan: 52-year-old with what seems to be unintentional overdose presented to the emergency room after her daughter called 911 because she was very lethargic, the patient was prescribed by her primary care physician Xanax 2 mg twice daily and she acknowledged that she had bought a bottle of wine that day - Include all active medical diagnosis that require tx DSM 5 Diagnosis(es): Unspecified depressive disorder Most likely substance-induced mood disorder with onset of symptoms during intoxication Alcohol use disorder Cocaine use disorder - Initial Tx Plan for Active Psych & Medical Conditions Treatment Plan: Inpatient psychiatric care with safety checks every 15 minutes Nursing assessments, vital signs, and patient education and Biopsychosocial assessment, collateral, and aftercare planning The patient will be evaluated daily by a psychiatrist to evaluate her mental status and monitor medications - Factors that would help patient function - in a less restrictive setting. Factors: The patient will be discharge if she continues to be free of thoughts of suicide over the weekend
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
--- NOTE | 2017-09-29 15:53 | SOCIAL WORKER PROG NOTE PSYCH ---
Social Work Progress Note Progress Note This typewriter assembler met with patient. Initially she stated that her daughter called the police after the patient drank a glass of wine. She later admitted to drinking a bottle of wine. Patient appeared to minimize her alcohol use. She was not agreeable to attending treatment other than working with her individual therapist, Ibeth, who comes to the home. "I can't do groups." She denied being engaged in any treatment at [facility], despite what is documented in the crisis assessment. She discussed feeling anxious in social situations or around others in which she feels "suffocated" and judged. Patient denied SI/HI/AH. She stated that she occassionally sees shadows that aren't there, "they're my guardian lori." She denied experiencing these while under the influence of alcohol. Patient also refused to enter rehab/inpatient. She was agreeable to a family meeting with her daughter (ROMEO signed). Family meeting scheudled with patient's daughter, Lory Marc, for 10/02/17 at 12pm by phone as Lory is unable to leave work to attend in person. Patient also signed ROMEO's for [facility], [facility] (visiting nurse) and Yazmin Dye APRN (psychiatric prescriber). This typewriter assembler spoke with Ga Rea at [facility] (intake department), in response to his vm. He was informed that the patient is currently refusing rehab and that a family meeting will occur. Ga was provied with this typewriter assembler' s phone number and will relay it to the nurse, Serenity. This typewriter assembler attempted to reach Serenity at number provided by Ga ([phone]), but was unsuccessful in reaching her. She later called this typewriter assembler and left a vm. A return call was made a vm left for Serenity at 3:35pm.
--- NOTE | 2017-09-29 16:30 | History & Physical ---
General Information and HPI MD Statement: I have seen and personally examined RODOLFO BALBUENA and documented this H&P. The patient is a 52 year old F who presented with a patient stated chief complaint of depression and suicide attempt (Xanax overdose). Source of Information: patient, old records Exam Limitations: clinical condition History of Present Illness: The patient is a 52 yo female with h/o depression, CKD, DM2, ?CHF, HTN, & asthma /bronchitis who presented in the ED with depression/suicidal attempt taking overdose of Xanax and used cocaine. EMS stated patient is non-compliant with meds at home. At the time of my exam the patient was cooperative. She had no c/o difficulty breathing. Only compliant was numbness of left upper abdomen/flank. Allergies/Medications Allergies: Coded Allergies: No Known Allergies (04/04/17) Home Med list Albuterol Sulfate 2.5 MG/3 ML (0.083 %) VIAL.NEB 1 Vial INH/YOSELIN Q4P PRN SHORTNESS OF BREATH (Reported) Albuterol Sulfate (Proair Hfa) 90 MCG HFA.AER.AD 2 PUF INH Q4-6 PRN PRN sob Alprazolam 2 MG TABLET 1 TAB PO BIDP PRN ANXIETY (Reported) Atorvastatin Calcium 20 MG TABLET 1 TAB PO DAILY CHOLESTEROL (Reported) Carvedilol 6.25 MG TABLET 1 TAB PO BID HEART (Reported) Fluoxetine HCl 20 MG CAPSULE 1 CAP PO DAILY MENTAL HEALTH Fluticasone Propionate 50 MCG/ACTUATION SPRAY.SUSP 2 SPRAY NASB DAILY ALLERGIES (Reported) Fluvoxamine Maleate 50 MG TABLET 1 TAB PO QPM UNK (Reported) Folic Acid 1 MG TABLET 1 TAB PO DAILY VITAMIN SUPPORT (Reported) Furosemide 40 MG TABLET 1 TAB PO DAILY WATER RETENTION (Reported) Lisinopril 20 MG TABLET 1 TAB PO DAILY BP (Reported) Metformin HCl 500 MG TABLET 1 TAB PO BID DIABETES (Reported) Nebivolol HCl (Bystolic) 5 MG TABLET 1 TAB PO DAILY BP (Reported) Nicotine (Nicorelief) 2 MG GUM 2 MG PO Q2P PRN nicotine cravings Olanzapine 5 MG TABLET 1 TAB PO DAILY MENTAL HEALTH Spironolactone 25 MG TABLET 1 TAB PO DAILY HEART (Reported) Zolpidem Tartrate 10 MG TABLET 1 TAB PO QPMP INSOMNIA (Reported) Compliance With Home Meds: POOR Past History Travel History Traveled to [place] past 21 day No Medical History Neurological: NONE, MIGRANES EENT: NONE Cardiovascular: CHF, hypertension Respiratory: asthma, bronchitis Gastrointestinal: NONE Hepatic: NONE Renal: chronic kidney disease Musculoskeletal: NONE Psychiatric: depression Endocrine: NONE Blood Disorders: NONE Cancer(s): NONE 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 Psychosocial History Where do you live? Home ETOH Use: 6 Illicit Drug Use: denies illicit drug use Functional Ability Ambulation: independent Employment History Employment Child Support/Disabled Profession/Employer Patient wrked at [employer] for 1 week Review of Systems Review of Systems Constitutional: Denies: no symptoms. EENTM: Denies: no symptoms. Cardiovascular: Denies: no symptoms. Respiratory: Denies: no symptoms. GI: Denies: no symptoms. Genitourinary: Denies: no symptoms. Musculoskeletal: Denies: no symptoms. Skin: Denies: no symptoms. Neurological/Psychological: Reports: anxiety, depressed, emotional problems. Hematologic/Endocrine: Denies: no symptoms. Immunologic/Allergic: Denies: no symptoms. Exam & Diagnostic Data Last 24 Hrs of Vital Signs/I&O Vital Signs Date Time Temp Pulse Resp B/P B/P Pulse O2 O2 Flow FiO2 Mean Ox Delivery Rate 09/29 2006 98.5 94 112/75 09/29 1959 98.5 94 112/75 09/29 1950 96.8 84 15 136/69 09/29 1547 84 136/69 09/29 1547 84 136/69 09/29 1156 81 108/68 09/29 1147 81 108/68 09/29 0816 96.8 79 15 101/68 09/29 0816 96.8 79 15 101/68 09/29 0810 96.8 79 101/68 09/29 0806 96.8 79 101/68 Intake & Output 09/29 1600 09/29 0800 09/29 0000 Intake Total Output Total Balance Patient 140 lb Weight Physical Exam General Appearance Alert, Oriented X3, Cooperative, No Acute Distress Skin No Rashes, No Breakdown, No Significant Lesion HEENT Atraumatic, PERRLA, EOMI, Mucous Membr. moist/pink Neck Supple, No JVD, No thryomegaly, +2 Carotid Pulse wo Bruit, No LAD Cardiovascular Regular Rate, Normal S1, Normal S2, No Murmurs Lungs Clear to Auscultation, Normal Air Movement Abdomen Normal Bowel Sounds, Soft, No Tenderness, No Hepatospenomegaly, No Masses Neurological Exam Findings: Normal Gait, Normal Speech, Strength at 5/5 X4 Ext, Normal Tone, Sensation Intact, Cranial Nerves 3-12 NL, Reflexes 2+ Cranial Nerves II through XII: INTACT Extremities No Clubbing, No Cyanosis, No Edema, Normal Pulses, No Tenderness/ Swelling Vascular Normal Pulses, Pulses Symmetrical Last 24 Hrs of Labs/David: SEE ED NOTE Assessment/Plan Assessment: Impression/Plan: #Depression & Suicidal Attempt- Xanax overdose. Cooperative at time of my exam. Plan: Admit to [facility]/Psychiatry- meds as per psych. #HTN- BP good on Lisinopril & Carvedilol as well as Lasix/Spironolactone, Bystolic. Plan: Continue meds. #Asthma- lungs clear at present. plan: Continue inhalers. #DM2- on Metformin. Hgb A1C is 6.2. Plan; Continue Metformin at current dose and follow. #Hyperlipidemia- on Atorvastatin. Plan: Continue Atorvastatin. As Ranked By This Provider Problem List: 1. Overdose 2. Depression with suicidal ideation 3. Essential hypertension 4. DM2 (diabetes mellitus, type 2) 5. Asthma Miscellaneous Miscellaneous Documentation Attending Case Discussed With: Heaven QUIGLEY,[place] Primary Care Physician: Unknown Patient sees these Specialists NONE Level of Patient Care: [facility] Consults Needed: Consulting Physician: NONE Attending MD Review Statement Attending Statement Attending MD Statement: examined this patient, reviewed EMR data (avail), discussed with nursing, amended to note Attending Assessment/Plan: As above.
[2017-09-30] VITALS (8 sets, daily range): BP systolic 113–138; BP diastolic 50–76
--- NOTE | 2017-09-30 14:27 | CP SOUTH PROGRESS NOTE PSYCH ---
Psych (Inpt) Progress Note Progress Note Include the following elements, when applicable: Involvement in the active treatment of the patient with behavioral observations of the patient and the patient's response to the treatment. Review of the ongoing treatment process in the context of the treatment plan. Indication of how multi-disciplinary staff members are carrying out the treatment plan. Plans for future interventions and recommendations for revision of the treatment plan. Liaison with other physicians/providers. Progress Note: Chart reviewed. Progress discussed with nursing staff. Interviewed patient this morning. Difficulty awakening patient from sleep, however was conversant after I finally succeeded. She reports mood is "ok", denies withdrawal symptoms, denies SI/HI, and focused on low back pain. Vitals and labs reviewed. Findings are: vitals largely wnl. No new labs. Mental status exam: Mildly disheveled HF, no abnormal movements or tremulousness. Fair eye contact. Speech wnl. Mood "ok", affect somewhat constricted initially, TP log/garret, TC without SI/HI, denies perceptual disturbance, cognition grossly intact. I/J fair. Assessment and plan: Mood improving. Does not evidence symptoms of alcohol/benzo withdrawal. Ibuprofen and heat pack for LBP. Will continue CIWA monitoring for today and d/c tomorrow if no evidence of withdrawal. Otherwise, continue current management as per primary team.
[2017-10-01 08:35] VITALS: BP 124/67
[2017-10-01 08:37] VITALS: BP 124/67
--- NOTE | 2017-10-01 10:33 | CP SOUTH PROGRESS NOTE PSYCH ---
Psych (Inpt) Progress Note Progress Note Include the following elements, when applicable: Involvement in the active treatment of the patient with behavioral observations of the patient and the patient's response to the treatment. Review of the ongoing treatment process in the context of the treatment plan. Indication of how multi-disciplinary staff members are carrying out the treatment plan. Plans for future interventions and recommendations for revision of the treatment plan. Liaison with other physicians/providers. Progress Note: Chart reviewed. Progress discussed with nursing staff. Interviewed patient this morning. She walked into the MD office early this morning stating "this withdrawal is making me crazy!!" PRovided psychoeducation that she does not demonstrate much if any current physiological withdrawal. Discussed dividing her clonazepam dose and using zyprexa as needed for anxiety/agitation which she was in favor of doing. She denies SI/HI or AVH. Her back pain is improving with motrin and heat pack. Vitals and labs reviewed. Findings are: vitals wnl. No new labs. Mental status exam: Mildly disheveled HF, no abnormal movements or tremulousness. Fair eye contact but quite oddly related. Speech wnl. Mood "terrible!", affect constricted and mildly irritable, TP log/garret, TC without SI/ HI, denies perceptual disturbance, cognition grossly intact. I/J fair. Assessment and plan: Oddly related woman with ongoing anxious symptoms. Will try and encourage zyprexa use as needed. Does not seem to be manifesting benzo withdrawal and will dc CIWAs and PRN ativan. Divided 1 mg clonazepam at HS to 0.5 mg BID. Otherwise, continue current management as per primary team.
[2017-10-01 12:32] VITALS: BP 115/52
[2017-10-01 16:28] VITALS: BP 123/71
[2017-10-01 19:52] VITALS: BP 121/66
[2017-10-02 07:51] VITALS: BP 112/79
--- NOTE | 2017-10-02 08:41 | CP SOUTH PROGRESS NOTE PSYCH ---
Psych (Inpt) Progress Note Progress Note Vital Signs: Date Time Temp Pulse Resp B/P O2 FiO2 10/02 0807 77 112/79 10/02 0751 96.8 77 112/79 10/01 2009 97.2 85 15 121/66 10/01 1952 97.2 85 12166 10/[address] Sanchez notes for the weekend were reviewed. In the treatment team meeting this morning, patient's progress was reviewed, and the treatment and aftercare plans were reviewed and updated. The treatment team included: RN, MATHEMATICAL ENGINEERING TECHNICIAN, group and activity therapy staff, and psychiatrist. Mental status examination: The patient was alert and oriented to time, place, and person. She claims to have withdrawals from "dope". she claims that she was abusing heroine ( truthfulness is questionable) She denies SI/HI She denied hallucinations and did not seem to be responding to internal stimuli no abnormal movements or tremulousness. Fair eye contact Speech wnl. Mood "down", affect constricted and mildly irritable, Today she was a bit argumentative with her daughter on the phone in the family meeting over the phone. She was minimizing the level of her alcohol and substance use Plan: Add Clonidine PRN for any complaints regarding possible opiate withdrawal Add Imodium as needed for any loose stools
[2017-10-02 12:42] VITALS: BP 97/61
[2017-10-02 15:48] VITALS: BP 129/70
--- NOTE | 2017-10-02 17:31 | SOCIAL WORKER PROG NOTE PSYCH ---
See Addendum Social Work Progress Note Progress Note Muriel Ennis (medical student) and this freelance copywriter met with the patient. Her daughter, Lory, attending the family meeting by phone ([phone]). Lory stated that the patient needs to be "stable" which she clarified as not drinking or using drugs (Xanax, Alcohol and Cocaine). Lory also reported concerns about the patient's depression as well as medical concerns (heart and liver failure). Lory stated that DCF is currently involved and that she would call this freelance copywriter with the DCF worker's name/number as the patient could not recall. Patient is refusing rehab/inpatient treatment, and stated that she would like to continue with her [facility] therapist, Ibeth, and begin treatment at [facility]. Following the phone call, this freelance copywriter and Muriel met with the patient. Patient reported that she had been using Heroin (internasal) daily in order to avoid withdrawal symptoms. She acknowledged the need for treatment, but maintained that she would not go to rehab due to having bills to pay. Patient was agreeable to this freelance copywriter contacting her therapist as well as DCF.
--- NOTE | 2017-10-02 19:45 | SOCIAL WORKER PROG NOTE PSYCH ---
Social Work Progress Note Progress Note The services requested require additional review. You will be contacted regarding the status of this request if further information is needed. An authorization decision will be made within the required timeframes and details of that decision may be found under the member's authorization history. Member Name Member ID Member Subscriber Name Subscriber ID RODOLFO BALBUENA [id number] 1965 RODOLFO BALBUENA [id number] Pended Authorization # Client Authorization # Type of Request [id number] CONCURRENT Date of Admission/ Start of Services Requested From Submission Date 09/28/2017 10/02/2017 10/02/2017 Level of Service Type of Service Level of Care Type of Care INPATIENT/[facility] Reason Code P77 Provider Name & Address Provider ID Provider Alternate ID NPI # for Authorization SHIRA REYES [address] [place] [id number]
[2017-10-02 20:04] VITALS: BP 127/67
[2017-10-03 07:33] VITALS: BP 123/76
--- NOTE | 2017-10-03 08:30 | CP SOUTH PROGRESS NOTE PSYCH ---
Psych (Inpt) Progress Note Progress Note In the treatment team meeting this morning, patient's progress was reviewed, and the treatment and aftercare plans were reviewed and updated. The treatment team included: RN, JONATHAN, group and activity therapy staff, and psychiatrist. Vital Signs: Blood pressure was 109/46 mmHg, pulse was 75 bpm, and temperature was 97.8F Mental Status examination: Patient kept saying that the medications are not helping. However when I inquired what is exactly that she means by not helping she was referring to her physical pain. She was pretty somatic and wanted all kinds of investigations. The patient seemed to be in much better spirits today. She denied feeling hopeless and denied thinking about suicide or wishing . The patient was alert and oriented to time, place, and person. She denied withdrawals today but continues to be somatic complaining about pain in the left side of her abdomen and asking if I can do a total body CT scan for her. She denied having violent thoughts or thoughts of homicide. She denied hallucinations and did not seem to be responding to internal stimuli no abnormal movements or tremulousness. Good eye contact. Her speech was normal She showed a full range of affect and she was animated today. She was less argumentative with her daughter last night and reported that they had a good visit. She reported that she is now agreeing to do an intensive outpatient program. Treatment Plan Update: The patient would likely be discharged tomorrow to the intensive outpatient program dual track. Continue clonidine PRN for any complaints regarding possible opiate withdrawal Continue Imodium as needed for any loose stools Plan: Add Clonidine PRN for any complaints regarding possible opiate withdrawal Add Imodium as needed for any loose stools
[2017-10-03 12:01] VITALS: BP 109/46
[2017-10-03 15:57] VITALS: BP 96/59
--- NOTE | 2017-10-03 18:03 | SOCIAL WORKER PROG NOTE PSYCH ---
Social Work Progress Note Progress Note This database report writer met with patient. Patient maintains that she is not interested in rehab/inpatient and would like to attend IOP in addition to individual therapy with Ibeth Allen LCSW. This database report writer reviewed multiple IOP programs in the area and patient requested a referral to [facility]. She accepted an intake for 10/04/17 at 1:15pm. Patient denied SI/HI/AH/VH and stated that she would "call 911" if feeling unsafe. She was also informed that she will be provided with crisis numbers and warm lines upon discharge, which she was agreeable to utilizing. This database report writer called the patient's daughter, Lory, to again request the DCF worker's name and number as the patient does not know it and would like the DCF worker to be informed of the discharge plans. Lory stated that she would call back with the information. This database report writer spoke wtih Ibeth Allen LCSW and an individual therapy appointment has been scheduled for 10/09/17 at 3pm, which patient accepted. She was informed of the plan for patient to attend [facility], as she is refusing rehab. Patient called her daughter to obtain the DCF worker's name and number, as the daughter did not contact this database report writer as previously discussed. This database report writer left a vm for Marilou Olson at [facility] ([phone]).
[2017-10-03 20:12] VITALS: BP 99/61
[2017-10-03 21:42] VITALS: BP 117/65
[2017-10-04 07:46] VITALS: BP 107/77
[2017-10-04] MEDS ORDERED: NICOTINE PATCH1 EAC3 TOP (10:03)
[2017-10-04] MEDS ORDERED: PROAIR HFA8.5 GM INH (10:03)
[2017-10-04] MEDS ORDERED: ONE DAILY MULT1 EAC2 PO (10:03)
[2017-10-04] MEDS ORDERED: DICLOFENAC SODI75 M2 PO (10:03)
[2017-10-04] MEDS ORDERED: GABAPENTIN300 M2 PO (10:07)
--- NOTE | 2017-10-04 10:08 | Patient Discharge Instructions ---
Psych Discharge Inst General Discharge Information Reason for Admission: daughter found her extremely sedated and soaked in urine Psy Discharge Primary Diag+ MDD Psy Discharge Secondary Diag+ Alcohol Use Disorder Summary Tests/Major Procedures Lab Cholesterol 193 MG/DL 09/09/17 0700 Cholesterol/HDL Ratio 3 % 09/09/17 0700 HDL Cholesterol 64 mg/dL H 09/09/17 0700 Hemoglobin A1c 6.2 % H 09/07/17 2250 LDL Cholesterol, Calc 108 mg/dL 09/09/17 0700 Triglycerides 109 mg/dL 09/09/17 0700 Studies Pending at DC: None Patient Instructions Contact Information Your Psychiatrist on [facility] was Heaven QUIGLEY,[place] * If you are experiencing an emergency related to this hospitalization, please call [phone] to contact the treating psychiatrist or the psychiatrist-on- call. * To Request a copy of your medical records, please contact the Medical Records Department at [phone]. * To request results of studies pending at the time of discharge, please call [phone]. * Continue your Medications until directed to stop by your Healthcare provider. General Medication Information Please continue to take your new medications and your continued home medications , unless otherwise indicated on your discharge medication list, or unless directed by your MD or COIN COUNTER AND WRAPPER to stop them. Special Instructions Diet Diabetic Activity Normal - Tobacco Use Treatment Offered Post DC Medications Offered: Script Given-See Med List Post DC Tobacco Treatment Plan: Refused Tobacco Tx Pgm - EtOH/Drug Use D/O Treatment Offered Post DC Medications Offered: Med Not Indicated for D/O Post DC EtOH/SubAbuse [place] Plan: Other SubAbuse/Dual Pgm Metabolic Screening Patient on a neuroleptic(s) . Enter below results for Hemoglobin A1C, and lipid panel if obtained during the last 365 days. BMI: 26.400 Blood Pressure: 104/58 Laboratory Results From [facility] (If applicable): Lab Cholesterol 193 MG/DL 09/09/17 0700 Cholesterol/HDL Ratio 3 % 09/09/17 0700 HDL Cholesterol 64 mg/dL H 09/09/17 0700 Hemoglobin A1c 6.2 % H 09/07/17 2250 LDL Cholesterol, Calc 108 mg/dL 09/09/17 0700 Triglycerides 109 mg/dL 09/09/17 0700 Advance Directives Does the Patient have Medical Advance Directives No/Refused further info Does Pt have Psychiatric Advance Directives? No/Refused further info Does Patient have a Designated Surrogate Decision Maker: No Information About Psychiatric Advance Directives Provided? Yes Discharge Plan Post Hospital Treatment Plan: [facility]'s dual diagnosis program IOP
[2017-10-04 12:14] VITALS: BP 104/58
--- NOTE | 2017-10-04 14:13 | DISCHARGE SUMMARY REPORT-PSYCH ---
Visit Information Visit Dates/Diagnosis' Admission Date: 09/28/17 Discharge Date: 10/04/17 Reason for Admission: daughter found her extremely sedated and soaked in urine Psy Discharge Primary Diag: MDD Psy Discharge Secondary Diag: Alcohol Use Disorder Hospital Course Significant Lab Findings: Summary Tests/Major Procedures Lab Cholesterol 193 MG/DL 09/09/17 0700 Cholesterol/HDL Ratio 3 % 09/09/17 0700 HDL Cholesterol 64 mg/dL H 09/09/17 0700 Hemoglobin A1c 6.2 % H 09/07/17 2250 LDL Cholesterol, Calc 108 mg/dL 09/09/17 0700 Triglycerides 109 mg/dL 09/09/17 0700 Studies Pending at DC: None Course Complications: The patient did not have any complications when she was on the inpatient psychiatric unit Consultations: The patient had a history and physical examination while she was on the inpatient psychiatric unit. Please refer to the patient's electronic health record for the details of the H&P. Allergies: Coded Allergies: No Known Allergies (04/04/17) Hospital Course/TX Response: 09/29/2017: Impression and Plan: 52-year-old with what seems to be unintentional overdose presented to the emergency room after her daughter called 911 because she was very lethargic, the patient was prescribed by her primary care physician Xanax 2 mg twice daily and she acknowledged that she had bought a bottle of wine that day DSM 5 Diagnosis(es): Unspecified depressive disorder Most likely substance-induced mood disorder with onset of symptoms during intoxication Alcohol use disorder Cocaine use disorder Treatment Plan: Inpatient psychiatric care with safety checks every 15 minutes; Nursing assessments, vital signs, and patient education; Biopsychosocial assessment, collateral, and aftercare planning The patient will be evaluated daily by a psychiatrist to evaluate her mental status and monitor medications 09/30/2017: Assessment and plan: Mood improving. Does not evidence symptoms of alcohol/benzo withdrawal. Ibuprofen and heat pack for LBP. Will continue CIWA monitoring for today and d/c tomorrow if no evidence of withdrawal. Otherwise, continue current management as per primary team. 10/01/2017:Will try and encourage zyprexa use as needed. Does not seem to be manifesting benzo withdrawal and will dc CIWAs and PRN ativan. Divided 1 mg clonazepam at HS to 0.5 mg BID. Otherwise, continue current management as per primary team. 10/02/2017:Add Clonidine PRN for any complaints regarding possible opiate withdrawal Add Imodium as needed for any loose stools 10/03/2017:The patient would likely be discharged tomorrow to the intensive outpatient program dual track. Continue clonidine PRN for any complaints regarding possible opiate withdrawal Continue Imodium as needed for any loose stools 10/04/2017: Mental Status examination: The patient was alert and oriented to time, place, and person. The patient seemed to be in good spirits this morning and seemed to be looking forward to discharge. She showed bright affect and was animated. She continued to be somewhat somatic and was instructed to follow-up with her primary care physician regarding the different aches and pains that she was describing including some aches on her left side towards the lower side of the rib cage She denied feeling hopeless and denied thinking about suicide or wishing . She denied having violent thoughts or thoughts of homicide. She denied hallucinations and did not seem to be responding to internal stimuli no abnormal movements or tremulousness. Her speech was normal Treatment Plan Update: Discharge home with plan to follow up with intensive outpatient programming dual track at [facility] The patient's progress was reviewed, and the treatment and aftercare plans were reviewed and updated. The treatment team included: RN, COMMUNITY HEALTH WORKER, group and activity therapy staff, and psychiatrist. Mental Status examination: The patient was alert and oriented to time, place, and person. The patient seemed to be in good spirits this morning and seemed to be looking forward to discharge. She showed bright affect and was animated. She continued to be somewhat somatic and was instructed to follow-up with her primary care physician regarding the different aches and pains that she was describing including some aches on her left side towards the lower side of the rib cage She denied feeling hopeless and denied thinking about suicide or wishing . She denied having violent thoughts or thoughts of homicide. She denied hallucinations and did not seem to be responding to internal stimuli no abnormal movements or tremulousness. Her speech was normal Treatment Plan Update: Discharge home with plan to follow up with intensive outpatient programming dual track at [facility] Discharge HBIPS - Tobacco Use Treatment Offered Post DC Medications Offered: Script Given-See Med List Post DC Tobacco Treatment Plan: Refused Tobacco Tx Pgm - EtOH/Drug Use D/O Treatment Offered Post DC Medications Offered: Ref Med EtOH/Drug Use D/O Post DC EtOH/SubAbuse [place] Plan: [facility] SubAbuse/Dual IOP Metabolic Screening - Screen if on a Neuroleptic Medication - Metabolic screening should include: - Blood Pressure, BMI, Glucose or Hgb A1c, & a - Lipid profile from within the past 365 days. Metabolic Screening Patient on a neuroleptic(s) . Enter below results for Hemoglobin A1C, and lipid panel if obtained during the last 365 days. BMI: 26.400 Blood Pressure: 104/58 Laboratory Results From [facility] EHR (If applicable): Lab Cholesterol 193 MG/DL 09/09/17 0700 Cholesterol/HDL Ratio 3 % 09/09/17 0700 HDL Cholesterol 64 mg/dL H 09/09/17 0700 Hemoglobin A1c 6.2 % H 09/07/17 2250 LDL Cholesterol, Calc 108 mg/dL 09/09/17 0700 Triglycerides 109 mg/dL 09/09/17 0700 Discharge Instructions General Discharge Information Multiple Neuroleptics: (X) Not Applicable Discharge Diet Diabetic Discharge Activity Normal DC Disposition: Home Referrals Ordered Referrals Provider Referral 10/04/17 For Groups: [[facility]] [facility] [address], [place] [phone] IOP Intake Appointment: 10/04/17, at 1:15pm Provider Referral 10/11/17 For Providers: [[facility]] For Groups: [Smoking Cessation Group] Post Discharge Smoking Cessation Group [facility] [address], [place] [phone] Group meets every other Monday at 4pm Next Group: 10/11/17, at 4pm Provider Referral 10/09/17 For Groups: [[facility]] Ibeth Allen LCSW [facility] [phone] Appointment: 10/09/17, at 3pm Provider Referral 10/05/17 For Groups: [[facility]] [facility] Serenity Alexis (nurse) [phone] Serenity will contact you to schedule a time to meet in your home tomorrow, , 10/05/17. Prescriptions Stop taking the following medications: Nicotine (Nicorelief) 2 MG GUM ORAL EVERY 2 HOURS NEEDED as needed for nicotine cravings Qty = 60 Fluoxetine HCl (Fluoxetine HCl) 20 MG CAPSULE ORAL DAILY Qty = 30 Olanzapine (Olanzapine) 5 MG TABLET ORAL DAILY Qty = 30 Alprazolam (Alprazolam) 2 MG TABLET ORAL 2 x Daily as needed as needed for ANXIETY Qty = 60 Fluvoxamine Maleate (Fluvoxamine Maleate) 50 MG TABLET ORAL Every night Qty = 30 Lisinopril (Lisinopril) 20 MG TABLET ORAL DAILY Qty = 30 Zolpidem Tartrate (Zolpidem Tartrate) 10 MG TABLET ORAL Every night as needed Qty = 30 Continue taking these medications: Folic Acid (Folic Acid) 1 MG TABLET 1 Tablet ORAL DAILY Qty = 14 Comments: Last Taken:NOT TAKEN IN HOSPITAL Time: Furosemide (Furosemide) 40 MG TABLET 1 Tablet ORAL DAILY Qty = 30 Comments: Last Taken:10/04/17 Time:075 Carvedilol (Carvedilol) 6.25 MG TABLET 1 Tablet ORAL TWICE DAILY Qty = 60 Comments: Last Taken:10/04/17 Time:075 Albuterol Sulfate (Albuterol Sulfate) 2.5 MG/3 ML (0.083 %) VIAL.NEB 1 Vial Inhale Solution EVERY 4 HOURS NEEDED as needed for SHORTNESS OF BREATH Qty = 375 Comments: Last Taken:NOT TAKEN IN HOSPITAL Time: Fluticasone Propionate (Fluticasone Propionate) 50 MCG/ACTUATION SPRAY.SUSP 2 [place] Both sides of nose DAILY Qty = 16 Comments: Last Taken:10/04/17 Time:0802 Spironolactone (Spironolactone) 25 MG TABLET 1 Tablet ORAL DAILY Qty = 30 Comments: Last Taken:10/04/17 Time:075 Metformin HCl (Metformin HCl) 500 MG TABLET 1 Tablet ORAL TWICE DAILY Qty = 180 Comments: Last Taken:10/04/17 Time:075 Atorvastatin Calcium (Atorvastatin Calcium) 20 MG TABLET 1 Tablet ORAL DAILY Qty = 90 Comments: Last Taken:10/03/17 Time:165 Nebivolol HCl (Bystolic) 5 MG TABLET 1 Tablet ORAL DAILY Qty = 30 Comments: Last Taken:10/04/17 Time:075 Albuterol Sulfate (Proair Hfa) 90 MCG HFA.AER.AD 2 Puff Inhale through mouth EVERY 4-6 HOURS NEEDED as needed for sob Qty = 1 Comments: Last Taken:10/02/17 Time:0808 This prescription has been renewed Start taking the following new medications: Nicotine (Nicotine Patch) 21 MG/24 HOUR PATCH.TD24 21 Milligram On the skin DAILY Qty = 14 No Refills Comments: Last Taken:10/04/17 Time:0800 Diclofenac Sodium (Diclofenac Sodium) 75 MG TABLET.DR 75 Milligram ORAL TWICE DAILY Qty = 30 No Refills Comments: Last Taken:10/04/17 Time:0758 Multivitamin (One Daily Multivitamin) 1 EACH TABLET 1 Tablet ORAL DAILY Qty = 30 No Refills Comments: Last Taken:10/04/17 Time:0759 Gabapentin (Gabapentin) 300 MG CAPSULE 1 Capsule ORAL SEE INSTRUCTIONS Qty = 69 No Refills Instructions: 1 cap QAM, 1 cap Q2PM and 2 Caps QHS Comments: Last Taken:10/04/17 Time:0759 Studies Pending at Discharge None Copies To: -IOP
--- NOTE | 2017-10-04 18:19 | SOCIAL WORKER PROG NOTE PSYCH ---
Social Work Progress Note Progress Note This continuity writer met with patient. She discussed looking forward to attending the [facility] intake today at 1:15pm. She stated that she discussed her discharge plans with her daughter last night and that this continuity writer does not need to call her daughter. She verbally acknowledged understanding that any further substance use may result in a referral to inpatient/rehab. She was also agreeable to continuing with Ibeth Allen LCSW through [facility] and with visiting nurse services through [facility]. Regarding Heroin use, patient clarified that her last use was over 4 months ago. Patient denied SI/HI/AH/VH and identified a safety plan of "I would call 911." Patient was also accepting of the crisis numbers and warm lines that will be provided upon discharge. Patient stated that she will utilize a "Lift" ride from the intake today and will schedule [place] for future rides. Patient was provided with the [employer] phone number. Patient stated that she also plans to schedule an appointment with her primary care provider upon returning home (Dr. Mercer). She did not want to sign an ROMEO for this provider and stated that she did not need to have an appointment scheduled. This continuity writer spoke with Ga Kearney at [facility]. Visiting nurse services will resume tomorrow. He stated that if her nurse, Serenity, is able to resume services today, she will contact the patient. Patient accepted this plan. Patient's visiting nurse, Serenity, contacted this continuity writer by phone. She was informed of the discharge plan and that the patient will be seen by a psychiatric PEACE OFFICER at [facility] while she attends the program. This continuity writer spoke with Andreia, [facility] clinician, by phone prior to the patient 's intake. She was informed that the patient was recommended to enter rehab, but refused. She was also informed that patient meets with a [facility] therapist (Ibeth Allen LCSW) and has a visiting nurse through [facility]. This continuity writer left a vm for Marilou Olson [facility] nephrology social worker ([phone]) with call back number. Attempts made (and vm's received from Marilou) throughout the day. SW will continue to try to reach her. Faxed Referral(s) 1 Referred To: [facility] Transition of Care Documents sent: Health Summary Faxed to: [facility] Fax #: [phone] Faxed by: Max Sylvester LCSW Date faxed: 10/04/17 Time Faxed: [phone] Faxed Referral(s) 2 Referred To: [facility] Transition of Care Documents sent: Health Summary, W10 Faxed to: [facility] Fax #: [phone] Faxed by: Max Sylvester LCSW Date faxed: 10/04/17 Time Faxed: [phone] Faxed Referral(s) 3 Referred To: [facility] Transition of Care Documents sent: Health Summary Faxed to: Ibeth @ [facility] Fax #: [phone] Faxed by: Max Sylvester LCSW Date faxed: 10/04/17 Time Faxed: [phone]
--- NOTE | 2017-10-05 13:40 | SOCIAL WORKER PROG NOTE PSYCH ---
Social Work Progress Note Progress Note This service writer advisor spoke with [facility] social media coordinator, Marilou Wesley ([phone]), by phone. Upon her inquiry, she was informed of the hospital admission and discharge plan ([facility], visiting nurse and [facility] therapist, Ibeth Allen). She was also informed that the patient refused referrals to inpatient/rehab. Marilou stated that she would meet with the patient today and with patient's daughter, Lory, tomorrow. She was provided with the [facility] phone number at her request. ROMEO in chart.
== END 2017-10-04 13:15 | DRG 754 ==
LOC: ERH 21:14 → CP SOUTH 09-28 14:09 → ERHI 09-28 14:09 → CANRESERV 09-28 17:06 → ENRESERV 09-28 17:06 → ENTRNSPT 09-28 19:55 → EDTRNSPT 09-28 20:33 → EDTRNSPTSTS 09-28 20:33 → CP SOUTH 09-28 20:44 → CMPTRNSPT 09-28 20:48 → CP SOUTH 09-29 12:19
PROVIDERS: Emergency Medicine
DX: F32.9 Major depressive disorder, single episode, unspecified (principal); F10.10 Alcohol abuse, uncomplicated
CPT/HCPCS: 80307; 81025; 93005; 93010; G0463; G0480; J3490

== ENCOUNTER 2017-10-12 20:05 | Inpatient (IN) | payer OTHER ==
[~2017-10-12] VITALS: Ht 154.9 cm; Wt 66.7 kg
[~2017-10-12 20:05] MED LIST changes: +ALPRAZOLAM2 M2 PO; +ATORVASTATIN CA20 M1 PO; +DICLOFENAC SODI75 M2 PO; +GABAPENTIN300 M2 PO; +NICOTINE PATCH1 EAC3 TOP; +ONE DAILY MULT1 EAC2 PO
--- NOTE | 2017-10-12 20:18 | ED AMS/SEIZURE/WEAK/DIZZY ---
History of Present Illness General Chief Complaint: Altered Mental Status Stated Complaint: AMS, RECENT UTI Source: patient, family, old records Exam Limitations: no limitations Vital Signs & Intake/Output Vital Signs & Intake/Output Vital Signs Date Time Temp Pulse Resp B/P B/P Pulse O2 O2 Flow FiO2 Mean Ox Delivery Rate 10/12 2232 98.7 92 16 147/69 94 Room Air 10/121 98.5 88 16 136/68 92 Room Air 10/13 2011 92 Room Air 10/12 2009 99.0 98 16 97/55 92 Room Air Allergies Coded Allergies: No Known Allergies (04/04/17) Reconcile Medications Albuterol Sulfate 2.5 MG/3 ML (0.083 %) VIAL.NEB 1 Vial INH/YOSELIN Q4P PRN SHORTNESS OF BREATH (Reported) Albuterol Sulfate (Proair Hfa) 90 MCG HFA.AER.AD 2 PUF INH Q4-6 PRN PRN sob Atorvastatin Calcium 20 MG TABLET 1 TAB PO DAILY CHOLESTEROL (Reported) Carvedilol 6.25 MG TABLET 1 TAB PO BID HEART (Reported) Diclofenac Sodium 75 MG TABLET.DR 75 MG PO BID pain Fluticasone Propionate 50 MCG/ACTUATION SPRAY.SUSP 2 SPRAY NASB DAILY ALLERGIES (Reported) Folic Acid 1 MG TABLET 1 TAB PO DAILY VITAMIN SUPPORT (Reported) Furosemide 40 MG TABLET 1 TAB PO DAILY WATER RETENTION (Reported) Gabapentin 300 MG CAPSULE 1 CAP PO SEE ADMIN CRITERIA anxiety 1 cap QAM, 1 cap Q2PM and 2 Caps QHS Metformin HCl 500 MG TABLET 1 TAB PO BID DIABETES (Reported) Multivitamin (One Daily Multivitamin) 1 EACH TABLET 1 TAB PO DAILY supplement Nebivolol HCl (Bystolic) 5 MG TABLET 1 TAB PO DAILY BP (Reported) Nicotine (Nicotine Patch) 21 MG/24 HOUR PATCH.TD24 21 MG TOP DAILY smoking Spironolactone 25 MG TABLET 1 TAB PO DAILY HEART (Reported) Triage Note: PT BIBA FOR ALERTER MS NOTED BY HER DAUGHTER Triage Nurses Notes Reviewed? yes Onset: Gradual Duration: day(s): Timing: recent history Injury Environment: home Severity: moderate HPI: 52YO FEMALE with hx of liver failure/cirrhosis, CHF, HTN, depression, substance abuse BIBA for AMS per patient's daughter. Patient states that she feels in her usual state of health, she is unsure of why her daughter called for EMS. Patient denies chest pain, dyspnea, abdominal pain, headache, confusion. Daughter reports that she was on the patient alt Astrid patient was not answering her phone. Daughter states that when she arrived at her mother's home her mother. Altered/intoxicated. Daughter reports that the patient struggles with polysubstance abuse including alcohol, benzos, opiates, cocaine. Unknown what substances patient used today as patient denies substance abuse. Daughter reports that her mother has been complaining of dysuria recently, wondering patient has a UTI. (Donna Lindsey) Past History Travel History Traveled to [place] past 21 day No Medical History Any Pertinent Medical History? 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 Hx Contributory? No (Donna Lindsey) Review of Systems Review of Systems Constitutional: Reports: see HPI. EENTM: Reports: no symptoms. Respiratory: Reports: no symptoms. Cardiovascular: Reports: no symptoms. GI: Reports: no symptoms. Genitourinary: Reports: see HPI. Musculoskeletal: Reports: no symptoms. Skin: Reports: no symptoms. Neurological/Psychological: Reports: see HPI. Hematologic/Endocrine: Reports: no symptoms. Immunologic/Allergic: Reports: no symptoms. All Other Systems: Reviewed and Negative (Donna Lindsey) Physical Exam Physical Exam General Appearance: well developed/nourished, no apparent distress, alert, awake Head: atraumatic, normal appearance Eyes: Bilateral: normal appearance, PERRL, EOMI. Ears, Nose, Throat: hearing grossly normal Neck: normal inspection, supple, full range of motion Respiratory: normal breath sounds, no respiratory distress, lungs clear Cardiovascular: regular rate/rhythm Gastrointestinal: normal bowel sounds, soft, non-tender, no organomegaly Back: normal inspection, normal range of motion Extremities: normal range of motion Neurologic/Psych: awake, alert, oriented x 3, automation qa lead II-XII nml as tested Skin: intact, normal color, warm/dry Core Measures ACS in differential dx? No CVA/TIA Diagnosis No Sepsis Present: No Sepsis Focused Exam Completed? No (Cat WINCHESTER,Donna Jensen) Progress Differential Diagnosis: arrythmia, alcohol intoxication, anemia, CVA/stroke, dehydration, drug intoxication, encephalitis, electrolyte imbalance, hypoglycemia, intracranial mass/tumor, UTI/pyelo, DUNIA Plan of Care: Orders Procedure Date/time Status Regular Diet 10/13 B Active OXYGEN SETUP (GEN) 10/12 2300 Active Saline Lock 10/12 2300 Active Admit to inpatient 10/12 2300 Active Vital Signs 10/12 2300 Active Activity/Ambulation 10/12 2300 Active Code Status 10/12 2300 Active LACTIC ACID 10/13 2255 Active XRY-PORTABLE CHEST XRAY 10/13 2251 Active Add-on Test (ER Only) 10/12 2201 Active BLOOD CULTURE 10/12 2201 Active Add-on Test (ER Only) 10/12 2130 Active PARTIAL THROMBOPLASTIN TIME 10/12 2038 Complete PROTHROMBIN TIME 10/12 2038 Complete TROPONIN LEVEL 10/12 2018 Active EKG 10/12 2018 Active URINE DRUG SCREEN FOR ER ONLY 10/12 2017 Complete URINALYSIS 10/12 2017 Complete ETHANOL 10/12 2017 Complete COMPREHENSIVE METABOLIC PANEL 10/12 2017 Complete CBC WITHOUT DIFFERENTIAL 10/12 2017 Complete Laboratory Tests 10/12/17 2308: Lactic Acid Pending 10/12/178: Urine Color YEL, Urine Clarity CLEAR, Urine pH 6.0, Ur Specific [place] 1.020, Urine Protein 30 H, Urine Ketones NEG, Urine Nitrite POS H, Urine Bilirubin NEG, Urine Urobilinogen 0.2, Ur Leukocyte Esterase MOD H, Ur Microscopic SEDIMENT EXAMINED, Urine RBC 1-3, Urine WBC 15-25 H, Ur Epithelial Cells RARE, Urine Bacteria MOD H, Urine Hemoglobin MOD H, Urine Glucose NEG 10/12/172038: Anion Gap 13, Estimated GFR 28 L, BUN/Creatinine Ratio 18.9, Glucose 113 H, Calcium 9.3, Total Bilirubin 0.5, AST 31, ALT 29, Alkaline Phosphatase 87, Total Protein 7.2, Albumin 4.3, Globulin 2.9, Albumin/Globulin Ratio 1.5, PT 11.9, INR 1.09, APTT 28, CBC w Diff NO MAN DIFF REQ, RBC 4.18 L, MCV 87.1, MCH 29.1, MCHC 33.4, RDW 21.4 H, MPV 7.4, Gran % 87.8 H, Lymphocytes % 8.9 L, Monocytes % 2.3, Eosinophils % 0.9, Basophils % 0.1, Absolute Granulocytes 15.8 H, Absolute Lymphocytes 1.6, Absolute Monocytes 0.4, Absolute Eosinophils 0.2, Absolute Basophils 0, Serum Alcohol < 10.0 10/12/17 2018: Urine Opiates Screen > 4000.00 H, Methadone Screen 42, Barbiturate Screen < 60, Ur Phencyclidine Scrn < 6.00, Amphetamines Screen < 100, U Benzodiazepines Scrn < 85, Urine Cocaine Screen < 50, Urine Cannabis Screen 5.50 Microbiology 10/12 2248 BLOOD: Blood Culture - RECD 10/13 2247 BLOOD: Blood Culture - RECD Labs show acute kidney injury, this is new compared to previous studies. Patient also has UTI and leukocytosis. We'll she with antibiotics and IV fluids. Urine drug screen shows opiate abuse. Spoke with case management who recommended full admission. Spoke with Dr. Gotti regarding this patient. Spoke with hospitalist Dr. Maxwell regarding general medicine admission. Diagnostic Imaging: Viewed by Me: CT Scan. Discussed w/RAD: CT Scan. Radiology Impression: PATIENT: RODOLFO BALBUENA PRESENT AGE: 52 PATIENT ACCOUNT NO: [id number] : 65 LOCATION: [facility] ORDERING PHYSICIAN: Donna WINCHESTER SERVICE DATE: 10/12/17 EXAM TYPE: CAT - CT HEAD WO IV CONTRAST EXAMINATION: CT HEAD WITHOUT CONTRAST CLINICAL INFORMATION: Altered mental status. Acute kidney injury. COMPARISON: None. TECHNIQUE: Contiguous axial imaging was performed from the skull base to vertex without intravenous contrast. DLP: 648 mGy-cm. FINDINGS: There is no evidence of acute intracranial hemorrhage or territorial infarction. No abnormal mass effect or midline shift is seen. Choudhury to white matter differentiation is well preserved. No extra-axial fluid collections are identified. No hydrocephalus. No significant volume loss. There is no abnormal attenuation within the brain parenchyma. The osseous structures and soft tissues are normal. Partial opacification of the right mastoid air cells. The left mastoid air cells and visualized portions of the paranasal sinuses are well aerated. IMPRESSION: No acute intracranial pathology. DICTATED BY: Richard Parsons MD DATE/TIME DICTATED:10/12/172211 SECURITY SYSTEMS ADMINISTRATOR:ANDREEA DATE/TIME TRANSCRIBED:2211 CONFIDENTIAL, DO NOT COPY WITHOUT APPROPRIATE AUTHORIZATION. < Electronically signed in Other Vendor System> SIGNED BY: Richard Parsons MD 10/12/172216 Initial ED EKG: sinus rhythm @87bpm, nonspecific ST changes (Donna Lindsey) Departure Departure Disposition: STILL A PATIENT Condition: Stable Clinical Impression Primary Impression: Acute kidney injury Secondary Impressions: Altered mental status Qualifiers: Altered mental status type: unspecified Qualified Code: R41.82 - Altered mental status, unspecified UTI (urinary tract infection) Qualifiers: Urinary tract infection type: acute cystitis Hematuria presence: without hematuria Qualified Code: N30.00 - Acute cystitis without hematuria Referrals: Unknown (PCP/Family) Departure Forms: Customer Survey General Discharge Information Admission Note Spoke With: Yamila Chu MD Documentation of Exam: Documentation of any treatments & extenuating circumstances including Concerns Regarding Discharge (functional status, medication knowledge or non-compliance, living conditions, etc.) that warrant an admission rather than observation: [ acute kidney injury requiring IV fluids, UTI requiring IV antibiotics, repeat labs, follow up with blood cultures, premature discharge medically unsafe] (Donna Lindsey) PA/ESTHETICIAN/SPA COORDINATOR Co-Sign Statement Statement: ED Attending supervision documentation- x I saw and evaluated the patient. I have also reviewed all the pertinent lab results and diagnostic results. I agree with the findings and the plan of care as documented in the PA's/ESTHETICIAN/SPA COORDINATOR's documentation. Altered mental status, DUNIA, opiate abuse [] I have reviewed the ED Record and agree with the PA's/ESTHETICIAN/SPA COORDINATOR's documentation. [] Additions or exceptions (if any) to the PAs/ESTHETICIAN/SPA COORDINATOR's note and plan are summarized below: [] (Ana María QUIGLEY,Surinder)
[2017-10-12 20:51] LABS: ABSOLUTE BASOPHIL COUNT 0 /CUMM (0.0-0.2); ABSOLUTE EOSINOPHIL COUNT 0.2 /CUMM (0.0-0.7); ABSOLUTE GRANULOCYTE CT 15.8 /CUMM (1.4-6.5); ABSOLUTE LYMPH COUNT 1.6 /CUMM (1.2-3.4); ABSOLUTE MONOCYTE COUNT 0.4 /CUMM (0.10-0.60); BASOPHIL % 0.1 % (0.0-2.0); EOSINOPHIL % 0.9 % (0-5); HEMATOCRIT 36.3 % (37-47); MEAN CORPUSCULAR HGB 29.1 PG (27.0-31.0); MEAN CORPUSCULAR HGB CONC 33.4 G/DL (33.0-37.0); MEAN CORPUSCULAR VOLUME 87.1 FL (81.0-99.0); MEAN PLATELET VOLUME 7.4 FL (7.4-10.4); PLATELET COUNT 277 /CUMM (130-400); RBC DISTRIBUTION WIDTH 21.4 % (11.5-14.5); RED BLOOD CELL CT 4.18 /CUMM (4.20-5.40)
[2017-10-12 21:21] LABS: GRANULOCYTE % 87.8 % (42.2-75.2)
[2017-10-12 21:51] LABS: PT 11.9 SEC (9.4-12.5); PTT 28 SEC (25-37)
--- NOTE | 2017-10-12 22:17 | CT SCAN REPORT ---
EXAMINATION: CT HEAD WITHOUT CONTRAST CLINICAL INFORMATION: Altered mental status. Acute kidney injury. COMPARISON: None. TECHNIQUE: Contiguous axial imaging was performed from the skull base to vertex without intravenous contrast. DLP: 648 mGy-cm. FINDINGS: There is no evidence of acute intracranial hemorrhage or territorial infarction. No abnormal mass effect or midline shift is seen. Choudhury to white matter differentiation is well preserved. No extra-axial fluid collections are identified. No hydrocephalus. No significant volume loss. There is no abnormal attenuation within the brain parenchyma. The osseous structures and soft tissues are normal. Partial opacification of the right mastoid air cells. The left mastoid air cells and visualized portions of the paranasal sinuses are well aerated. IMPRESSION: No acute intracranial pathology.
--- NOTE | 2017-10-12 23:28 | RADIOLOGY REPORT ---
EXAMINATION: XR PORTABLE CHEST CLINICAL INFORMATION: Leukocytosis COMPARISON: 06/21/2017 TECHNIQUE: Portable frontal view of the chest was obtained. FINDINGS: The lungs are well expanded. There is no focal consolidation, edema, or effusion. No pneumothorax. The cardiomediastinal silhouette is within normal limits. No acute osseous abnormality. IMPRESSION: No acute pulmonary findings.
[2017-10-13 00:44] VITALS: BP 90/58
--- NOTE | 2017-10-13 00:55 | History & Physical ---
[facility] General Information and HPI MD Statement: I have seen and personally examined RODOLFO BALBUENA and documented this H&P. The patient is a 52 year old F who presented with a patient stated chief complaint of [altered mental status]. Source of Information: family, old records Exam Limitations: clinical condition, confusion History of Present Illness: The patient is a 52 yo female with h/o depression, CKD, DM2, CHF(diagnosed at [facility] recently), HTN, & asthma/bronchitis, recent admission at [facility] on 09/28/17 was brought in by ambulance for altered mental status. Patient has history of cocaine and opiate abuse and alcoholism. Most of the information is obtained from the daughter over the phone as patient appears confused during examination. As per the daughter, her mother was overdosing on Xanax and doing cocaine/multiple drugs and alcohol. She takes Percocet for back pain and was found often to overdose on them. Today when she called her mother, she did not answer the phone. So she went on to check on her mother who appeared very confused and intoxicated. Therefore she called the EMS. Patient reports that she has a bad headache and has been having some dysuria over the past few days. She denies any recent cocaine or drug abuse. She was admitted about 3 months back at [facility] for liver cirrhosis and heart failure. She visited a gate watch this week on Monday for a follow-up. Daughter was not able to give any further details. Patient denies any chest pain, palpitations, shortness of breath, nausea, vomiting, abdominal pain, diarrhea or constipation. She admits to having a bad headache and appears confused/tangential during the examination. She denies any SI/HI at this time Of note patient was admitted to Inpatient Psychiatry on 09/28/2017 for depression /suicidal attempt taking overdose of Xanax and used cocaine. Vitals at arrival impression 99, pulse 98, respirations 16, blood pressure 97/ 55., Saturating 92% on room air. Labs were significant for a white count of 18 with no left shift, BUN 36, creatinine 1.9(baseline 0.8) UA dirty, nitrite and leukocyte esterase positive, with 15-25 WBCs. U tox positive for opiates > 4000, serum alcohol less than [address] showed no acute pathology and chest x-ray was negative for any acute findings. Allergies/Medications Allergies: Coded Allergies: No Known Allergies (04/04/17) Home Med list Albuterol Sulfate 2.5 MG/3 ML (0.083 %) VIAL.NEB 1 Vial INH/YOSELIN Q4P PRN SHORTNESS OF BREATH (Reported) Albuterol Sulfate (Proair Hfa) 90 MCG HFA.AER.AD 2 PUF INH Q4-6 PRN PRN sob Atorvastatin Calcium 20 MG TABLET 1 TAB PO DAILY CHOLESTEROL (Reported) Carvedilol 6.25 MG TABLET 1 TAB PO BID HEART (Reported) Diclofenac Sodium 75 MG TABLET.DR 75 MG PO BID pain Fluticasone Propionate 50 MCG/ACTUATION SPRAY.SUSP 2 SPRAY NASB DAILY ALLERGIES (Reported) Folic Acid 1 MG TABLET 1 TAB PO DAILY VITAMIN SUPPORT (Reported) Furosemide 40 MG TABLET 1 TAB PO DAILY WATER RETENTION (Reported) Gabapentin 300 MG CAPSULE 1 CAP PO SEE ADMIN CRITERIA anxiety 1 cap QAM, 1 cap Q2PM and 2 Caps QHS Metformin HCl 500 MG TABLET 1 TAB PO BID DIABETES (Reported) Multivitamin (One Daily Multivitamin) 1 EACH TABLET 1 TAB PO DAILY supplement Nebivolol HCl (Bystolic) 5 MG TABLET 1 TAB PO DAILY BP (Reported) Nicotine (Nicotine Patch) 21 MG/24 HOUR PATCH.TD24 21 MG TOP DAILY smoking Spironolactone 25 MG TABLET 1 TAB PO DAILY HEART (Reported) Past History Travel History Traveled to [place] past 21 day No Medical History Neurological: NONE, MIGRANES EENT: NONE Cardiovascular: CHF, hypertension Respiratory: asthma, bronchitis Gastrointestinal: NONE Hepatic: NONE Renal: chronic kidney disease Musculoskeletal: NONE Psychiatric: depression Endocrine: NONE Blood Disorders: NONE Cancer(s): NONE 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 Functional Ability Ambulation: independent Review of Systems Review of Systems Constitutional: Reports: malaise, weakness. EENTM: Reports: no symptoms. Cardiovascular: Reports: no symptoms. Respiratory: Reports: no symptoms. GI: Reports: no symptoms. Genitourinary: Reports: dysuria. Musculoskeletal: Reports: back pain. Skin: Reports: no symptoms. Exam & Diagnostic Data Last 24 Hrs of Vital Signs/I&O Vital Signs Date Time Temp Pulse Resp B/P B/P Pulse O2 O2 Flow FiO2 Mean Ox Delivery Rate 10/13 0044 99.0 88 20 90/58 92 Room Air 10/12 2233 98.7 92 16 147/69 94 Room Air 10/12 2101 98.5 88 16 136/68 92 Room Air 10/13 2011 92 Room Air 10/12 2009 99.0 98 16 97/55 92 Room Air Intake & Output 10/13 0800 10/13 0000 10/12 1600 Intake Total 1000 Output Total Balance 1000 Intake, IV 1000 Patient 67.132 kg Weight Physical Exam General Appearance Alert, confused but oriented to time place and person. Skin No Rashes Skin Temp/Moisture Exam: Warm/Dry Sepsis Skin Exam (color): Normal for Ethnicity HEENT Atraumatic, EOMI, pinpoint pupils, dry mucous membranes Neck Supple, No JVD Lymphatic Cervical nl Cardiovascular Normal S1, Normal S2, No Murmurs, tachycardia Lungs Clear to Auscultation, Normal Air Movement Abdomen Normal Bowel Sounds, Soft, No Tenderness Neurological Normal Gait, Normal Speech, Sensation Intact Extremities No Clubbing, No Cyanosis, No Edema Assessment/Plan Assessment: The patient is a 52 yo female with h/o depression, CKD, DM2, CHF(diagnosed at [facility] recently), HTN, & asthma/bronchitis, recent admission at [facility] on 09/28/17 was brought in by ambulance for altered mental status. Vitals at arrival impression 99, pulse 98, respirations 16, blood pressure 97/ 55., Saturating 92% on room air. Labs were significant for a white count of 18 with no left shift, BUN 36, creatinine 1.9(baseline 0.8) UA dirty, nitrite and leukocyte esterase positive, with 15-25 WBCs. U tox positive for opiates > 4000, serum alcohol less than 10 EKG: Sinus tachycardia, no ischemic changes Head CT showed no acute pathology and chest x-ray was negative for any acute findings. Assessment Altered mental status/Toxic encephalopathy secondary to opiate overdose, dehydration and UTI Urinary tract infection Acute kidney injury Polysubstance abuse Recently diagnosed CHF Cocaine user Hypertension Depression Hyperlipidemia Diabetes mellitus Plan * [facility] Vitals per protocol * Will hydrate patient with IV normal saline at 75 cc an hour * Continues IV ceftriaxone for UTI * Blood and urine cultures * Acute kidney injury likely secondary to dehydration, will check BP in a.m., avoid nephrotoxins * We will hold lisinopril, spironolactone for kidney injury. * Continue carvedilol and Bystolic for hypertension * 3 times a day Accu-Cheks. NovoLog sliding scale. Will hold metformin(last hemoglobin A1c 6.2) * Continue atorvastatin for hyperlipidemia * We are holding Lasix at this time. Please try to get records from [facility]/ gate watch * Psychiatric consult in a.m. * DVT prophylaxis subcutaneous heparin * Full code\ Please confirm medications in a.m. Daughter reports that patient might not be taking many of her medications. As Ranked By This Provider Problem List: 1. Cocaine abuse 2. Altered mental status Qualifiers Altered mental status type: unspecified Qualified Code: R41.82 - Altered mental status, unspecified 3. Acute kidney injury 4. UTI (urinary tract infection) Qualifiers Urinary tract infection type: acute cystitis Hematuria presence: without hematuria Qualified Code: N30.00 - Acute cystitis without hematuria Core Measures/Misc (02/26) Acute Coronary Syndrome ACS Diagnosis: No Congestive Heart Failure Congestive Heart Failure Diagnosis No Cerebrovascular Accident CVA/TIA Diagnosis: No VTE (View Protocol) VTE Risk Factors Age>40 No Mechanical VTE Prophylaxis d/t N/A MechProphylax Ordered No VTE Pharm Prophylaxis d/t NA PharmProphylax ordered Sepsis (View protocol) Sepsis Present: No Vlad QUIGLEY, [facility] 10/13/17 0410: Attending MD Review Statement Attending Statement Attending MD Statement: examined this patient, discuss w/resident/PA/TABLEMAN, agreed w/resident/PA/TABLEMAN, reviewed images, amended to note Attending Assessment/Plan: 52 yo F with h/o alcohol use, polysubstance abuse, HTN, T2DM, CKD, asthma, unspecified heart failure, depression, and recent admission (September 2017) to Psychiatry for depression, is here for evaluation of altered mental status. Daughter called EMS today as patient as she found patient intoxicated and altered at home. Patient denies any substance abuse. She reports previous cocaine use, but nothing recent. She does report drinking alcohol although then denies it in a few minutes. She has chronic back pain and reports taking percocet from a friend. Patient is not able to provide any other information. She reports having urinary frequency but no dysuria or hematuria. She also reports vague complaints of headache, dyspnea, dizzy and not feeling good. Of note, patient was admitted to [facility] for liver cirrhosis and heart failure, and she follows with a gate watch. Vitals stable except for borderline BP. Exam unremarkable except for patient has tangential thoughts and is confused. Labs: WBC 18, BUN 36, creat 1.9 (baseline 0.8), glucose 113, lactic acid 1.0, trop neg. UA proteinuria, nitrite positive, mod LE, WBC 15-25, moderate bacteria. Urine tox positive for opiates, mildly positive for methadone and cannabis. Head CT: no acute pathology. CXR: no acute changes. EKG: sinus rhythm. Assessment and plan: 1. Confusion, AMS, toxic encephalopathy 2. Polysubstance use opiates 3. Acute cystitis, UTI 4. DUNIA likely pre-renal azotemia 5. History of unspecified CHF 6. Essential HTN and T2DM - Admit to General medicine - Neurochecks - Patient in no respiratory distress, no need for narcan - Panculture - Gentle IV fluids - IV ceftriaxone for UTI - Follow urine cultures - Trend renal functions - Avoid nephrotoxins - Hold spironolactone, lisinopril, lasix and metformin. - Please confirm home meds in AM and resume - Obtain records from [facility] and patient's gate watch - Psych consult DVT ppx Hep SC. Full code.
--- NOTE | 2017-10-13 04:11 | Admission Certification ---
Admission Certification Certification Statement - As attending physician, I certify that at the time of - admission, based on clinical presentation, severity of - symptoms, need for further diagnostic testing and - therapeutic interventions, and risk of adverse outcomes - without in-hospital treatment, in my clinical assessment, - this patient requires an acute hospital stay for a minimum - of two nights or longer. I have also considered psychsocial - factors such as support system, advanced age, financial - issues, cognitive issues, and failed out-patient treatments, - past re-admission history, safety of patient, and lack of - compliance as applicable. Specific rationale supporting this admission is: Altered mental status, polysubstance abuse, DUNIA, dehydration.
[2017-10-13 06:28] VITALS: BP 130/70
[2017-10-13 08:18] LABS: ABSOLUTE BASOPHIL COUNT 0 /CUMM (0.0-0.2); ABSOLUTE EOSINOPHIL COUNT 0.1 /CUMM (0.0-0.7); ABSOLUTE GRANULOCYTE CT 14.2 /CUMM (1.4-6.5); ABSOLUTE LYMPH COUNT 2.3 /CUMM (1.2-3.4); ABSOLUTE MONOCYTE COUNT 0.7 /CUMM (0.10-0.60); BASOPHIL % 0.2 % (0.0-2.0); EOSINOPHIL % 0.8 % (0-5); GRANULOCYTE % 81.8 % (42.2-75.2); HEMATOCRIT 35.3 % (37-47); MEAN CORPUSCULAR HGB 29.1 PG (27.0-31.0); MEAN CORPUSCULAR HGB CONC 33.5 G/DL (33.0-37.0); MEAN PLATELET VOLUME 7.9 FL (7.4-10.4); PLATELET COUNT 284 /CUMM (130-400); RBC DISTRIBUTION WIDTH 21.6 % (11.5-14.5); RED BLOOD CELL CT 4.06 /CUMM (4.20-5.40); WHITE BLOOD CELL COUNT 17.3 /CUMM (4.8-10.8)
[2017-10-13 14:30] VITALS: BP 120/70
--- NOTE | 2017-10-13 16:31 | ED PSYCHIATRIST/APRN CONSULT ---
Psychiatrist/PRODUCE ASSOCIATE ED Consult Assessment and Plan: 52-year-old single, female, brought in by ambulance from her home on at 2035 with a chief complaint of being found by her daughter confused, and possibly intoxicated. She was admitted for urinary tract infection and acute kidney injury. PHx: Acute inpatient psychiatry admission 09/08/2017 through 09/14/2017 for suicidal statements and alcohol detoxification. The patient was supposed to start [facility] IOP program after the initial interview, but claims that nobody told her the correct day, and she didn't have any money for a cab. After the above discharge, he IOP trestle builder discussed her alprazolam prescriptions from her primary care provider, cautioning the patient not to fill the prescription that she had. CT WET WASH ASSEMBLER report shows that the patient filled alprazolam 2 mg #60 for 30 days on 09/21/2017 by order of carlos Fuentes M.D. [address] [place] [address], Acute inpatient psychiatry admission 09/28/2017 through 10/04/2017 for major depressive disorder and alcohol use disorder and probable unintentional overdose on Xanax and wine. She has a history of alcohol use disorder, cocaine use disorder, probable benzodiazepine abuse. PMH: Please see the history and physical. MSE: The patient is alert, lying calmly in bed. She does not know the day, "I'm in here." She knows that it is the fifth month, the year is 2018 and that she is in [facility]. She denies current visual hallucinations, but states that she has had this in the past, without becoming more specific. When asked about auditory hallucinations, she states that, "yes, it's my daughter." After further explanation, the patient insists that it's her daughter which he hears. She does not present any mimi delusions. She states that she does not feel safe here, and is safe at her house. She denies suicidal or homicidal ideation. Asked about the high level of opiates found in her system, the patient states that she does not know what medication she took, and that she has a nurse that tells her what medication she takes. She then reports that her friend told me to take the pills. Her insight and judgment are poor. PsychSoc: The patient reports that she normally lives at home with her children, ages 10, 12 and 17 after originally stating that she lives by herself. She reports that her 3 minor children are staying with her 32-year-old daughter, Lory, and feels that they remain safe place. Impression: The patient's thought processes are not logical, as evidenced by taking medications which might have killed her, namely opiates which are not prescribed per the CT WET WASH ASSEMBLER as of today. She denies being told at her acute inpatient psychiatry discharge on 09/14/2017, that she should avoid benzodiazepines such as alprazolam, which as someone avoiding alcohol use, would put her at risk for relapse, seizure and . "They make me feel better." Plan: 1. CIWA protocol if alcohol or benzodiazepine withdrawal is suspected. 2. Daily thiamine, folic acid and multivitamin 3. If opiate withdrawal is suspected, please use the symptomatic relief provided in the opioid detox protocol. 4. The patient is not suicidal, and is not currently psychotic nor delirious. We are concerned about her poor judgment and lack of insight into behaviors that have resulted in 2 admissions to acute inpatient psychiatry here in September, and have resulted in this admission, probably due to opiate overdose. She has not engaged in the suggested follow-up at [facility]. We are unable to verify her participation in programs at [facility] in [place], where she also been referred. This can be done on 10/16/2017 5. Patient would benefit at a minimum from [facility] intensive outpatient program, provided that she has transportation, and is not on benzodiazepines. Social work can assist with this placement. 6. Please advise the primary care provider patient's admission for overdose, though not on the medications currently's prescribed, which is alprazolam. Please call on-call psychiatry for clearance before discharging this patient. [phone], [phone] We will continue to follow along. Thank you for this consult.
[2017-10-13 22:46] VITALS: BP 122/60
--- NOTE | 2017-10-13 23:28 | PN- Att Addend ---
Attending Addendum Attending Brief Note S: The patient was seen in morning with house staff. Feeling better this morning. Mental status back to baseline. Still slightly weak. O: VS: Vital Signs Date Time Temp Pulse Resp B/P B/P Pulse O2 O2 Flow FiO2 Mean Ox Delivery Rate 10/13 2246 98.1 71 20 122/60 96 Room Air / 2101 98.5 71 120/70 / 1430 98.5 71 18 120/70 95 Room Air / 0819 99.4 99 20 130/70 / 0819 99.4 99 20 130/70 05/04 0628 99.4 99 20 130/70 92 Room Air / 0044 99.0 88 20 90/58 92 Room Air Intake & Output 10/13 1600 10/13 0800 10/13 0000 Intake Total 1300 1200 1000 Output Total 800 Balance 500 1200 1000 Intake, IV 944 296 9047 Intake, Oral 600 600 Output, Urine 800 Patient 147 lb 148 lb Weight Weight Bed scale Measurement Method Current Medications Sig/Traci Start time Last Medication Dose Route Stop Time Status Admin Acetaminophen 1,000 MG Q8 PRN 10/13 0100 AC 10/13 IV 1755 Albuterol Sulfate 2 PUF Q4-6 PRN PRN 10/13 0130 AC INH Albuterol Sulfate 3 ML Q4P PRN 10/13 0130 AC INH Atorvastatin Calcium 20 MG 1700 / 1700 AC 10/13 PO 1755 Carvedilol 6.25 MG BID 10/13 0128 AC 10/13 PO 2101 Ceftriaxone Sodium 1,000 MG Q24H 10/14 0015 AC 10/13 IV 2315 Ceftriaxone Sodium 0 .STK-MED ONE 10/13 0022 DC .ROUTE Fluticasone 2 SPRAY DAILY 10/13 0900 10/13 Propionate ANURAG 0819 Gabapentin 600 MG 2100 /04 2100 AC 10/13 PO 2101 Gabapentin 300 MG 0900,1400 10/13 0900 AC 10/13 PO 1446 Heparin Sodium 5,000 UNIT Q8 10/13 0054 AC 10/13 (Porcine) SC 2101 Insulin Aspart 0 TIDAC 10/13 08 AC SC Nebivolol 5 MG DAILY 10/13 0900 AC 10/13 PO 0819 Nicotine 21 MG DAILY 10/13 0900 AC 10/13 TOP 0818 Patient Medication 1 ED ONE ONE 10/13 1730 DC 10/13 Teaching ED 10/13 1731 1756 Sodium Chloride 1,000 ML Q13H 10/13 0130 AC 10/13 IV 1446 Physical Exam; HEENT: lorie- slightly dry mucosa Neck: supple Chest: clear Cor: RRR nl S1, S2 w/o murm Abd: BS+, soft, NT Ext: no edema Neuro: non-focal Labs: Laboratory Tests 10/13/17 0711: Anion Gap 12, Estimated GFR 58 L, BUN/Creatinine Ratio 23.0, CBC w Diff NO MAN DIFF REQ, RBC 4.06 L, MCV 87.0, MCH 29.1, MCHC 33.5, RDW 21.6 H, MPV 7.9, Gran % 81.8 H, Lymphocytes % 13.2 L, Monocytes % 4.0, Eosinophils % 0.8, Basophils % 0.2, Absolute Granulocytes 14.2 H, Absolute Lymphocytes 2.3, Absolute Monocytes 0.7 H, Absolute Eosinophils 0.1, Absolute Basophils 0 10/12/172307: Lactic Acid 1.0 10/12/172047: Urine Color YEL, Urine Clarity CLEAR, Urine pH 6.0, Ur Specific Seymour 1.020, Urine Protein 30 H, Urine Ketones NEG, Urine Nitrite POS H, Urine Bilirubin NEG, Urine Urobilinogen 0.2, Ur Leukocyte Esterase MOD H, Ur Microscopic SEDIMENT EXAMINED, Urine RBC 1-3, Urine WBC 15-25 H, Ur Epithelial Cells RARE, Urine Bacteria MOD H, Urine Hemoglobin MOD H, Urine Glucose NEG 10/12/172038: Anion Gap 13, Estimated GFR 28 L, BUN/Creatinine Ratio 18.9, Glucose 113 H, Calcium 9.3, Total Bilirubin 0.5, AST 31, ALT 29, Alkaline Phosphatase 87, Troponin I < 0.01, Total Protein 7.2, Albumin 4.3, Globulin 2.9, Albumin/ Globulin Ratio 1.5, PT 11.9, INR 1.09, APTT 28, CBC w Diff NO MAN DIFF REQ, RBC 4.18 L, MCV 87.1, MCH 29.1, MCHC 33.4, RDW 21.4 H, MPV 7.4, Gran % 87.8 H, Lymphocytes % 8.9 L, Monocytes % 2.3, Eosinophils % 0.9, Basophils % 0.1, Absolute Granulocytes 15.8 H, Absolute Lymphocytes 1.6, Absolute Monocytes 0.4, Absolute Eosinophils 0.2, Absolute Basophils 0, Serum Alcohol < 10.0 10/12/17 2019: Troponin I Cancelled 10/12/17 2018: Urine Opiates Screen > 4000.00 H, Methadone Screen 42, Barbiturate Screen < 60, Ur Phencyclidine Scrn < 6.00, Amphetamines Screen < 100, U Benzodiazepines Scrn < 85, Urine Cocaine Screen < 50, Urine Cannabis Screen 5.50 Impression/Plan; #Urinary Tract Infection- remains afebrile on Ceftriaxone. T max 99. Plan: Continue Ceftriaxone and await culture results. #DUNIA- Creatinine returned to 1.0 (from 1.9) c/w pre-renal etiology. Now better hydrated. Plan: Encourage po intake. Diuretics currently on hold. #Altered Mental Status- multifactorial- secondary to substance abuse, UTI, psych. Is at baseline at present. Plan: Will follow. #Polysubstance Abuse/Use - using Percocet, cocaine, etc. She has only been out of [facility] for short time. Appreciate psych consult, however would have concerns regarding discharge home and I feel may benefit from [facility] admit prior to being sent home (when medically stable). Plan: Will discuss with psych on Monday. Watch for withdrawal. #H/O Depression/SI- last admit to [facility] recent. Need definitive plan of care. Plan: Psych re-eval as above. #HTN- on Carvedilol. Plan: Continue Carvedilol. #HL- on Atorvastatin. Plan: Continue Atorvastatin. #DM2- sugars as above. Plan: Continue to monitor.
--- NOTE | 2017-10-14 04:56 | PN- Housestaff ---
See Addendum Subjective Follow-up For: #Altered mental status 2/2 Toxic encephalopathy vs UTI #Urinary tract infection #Acute kidney injury #Polysubstance abuse #T2DM Complaints: neck pain Subjective: Patient seen and examined. Complains of pain in the back of her neck. Denies any fever, chills, headache or blurry vision Review of Systems Constitutional: Reports: no symptoms. Objective Last 24 Hrs of Vital Signs/I&O Vital Signs Date Time Temp Pulse Resp B/P B/P Pulse O2 O2 Flow FiO2 Mean Ox Delivery Rate 10/13 2246 98.1 71 20 122/60 96 Room Air 10/13 2101 98.5 71 120/70 10/13 1430 98.5 71 18 120/70 95 Room Air 10/13 0819 99.4 99 20 130/70 10/13 0819 99.4 99 20 130/70 10/13 0628 99.4 99 20 130/70 92 Room Air Intake & Output 10/14 0800 10/14 0000 10/13 1600 Intake Total 200 1300 Output Total 800 Balance 200 500 Intake, IV 700 Intake, Oral 200 600 Output, Urine 800 Physical Exam General Appearance: Alert, Oriented X3, Cooperative, No Acute Distress Neck: Supple, No LAD, tenderness on palpating the bck of her neck, no rigidity Cardiovascular: Regular Rate, Normal S1, Normal S2 Lungs: Clear to Auscultation, Normal Air Movement Abdomen: Normal Bowel Sounds, Soft, No Tenderness Extremities: No Edema, Normal Pulses Current Medications: Current Medications Sig/Traci Start time Last Medication Dose Route Stop Time Status Admin Acetaminophen 1,000 MG Q8 PRN 10/13 0100 AC 10/13 IV 1755 Albuterol Sulfate 2 PUF Q4-6 PRN PRN 10/13 0130 AC INH Albuterol Sulfate 3 ML Q4P PRN 10/13 0130 AC INH Atorvastatin Calcium 20 MG 1700 10/13 1700 AC 10/13 PO 1755 Carvedilol 6.25 MG BID 10/13 0128 AC 10/13 PO 210 Ceftriaxone Sodium 1,000 MG Q24H 10/14 0015 AC 10/13 IV 2315 Fluticasone 2 SPRAY DAILY 10/13 0900 AC 10/13 Propionate ANURAG 0819 Gabapentin 600 MG 2100 10/13 2100 AC 10/13 PO 210 Gabapentin 300 MG 0900,1400 10/13 0900 AC 10/13 PO 1446 Heparin Sodium 5,000 UNIT Q8 10/13 0054 AC 10/13 (Porcine) SC 2101 Insulin Aspart 0 TIDAC 10/13 0800 AC SC Nebivolol 5 MG DAILY 10/13 0900 AC 10/13 PO 0819 Nicotine 21 MG DAILY 10/13 09 AC 10/13 TOP 0818 Patient Medication 1 ED ONE ONE 10/13 1730 DC 10/13 Teaching ED 10/13 1731 1756 Sodium Chloride 1,000 ML Q13H 10/13 0130 AC 10/14 IV 0123 Last 24 Hrs of Lab/David Results Last 24 Hrs of Labs/Mics: Laboratory Tests 10/13/17 0711: Anion Gap 12, Estimated GFR 58 L, BUN/Creatinine Ratio 23.0, CBC w Diff NO MAN DIFF REQ, RBC 4.06 L, MCV 87.0, MCH 29.1, MCHC 33.5, RDW 21.6 H, MPV 7.9, Gran % 81.8 H, Lymphocytes % 13.2 L, Monocytes % 4.0, Eosinophils % 0.8, Basophils % 0.2, Absolute Granulocytes 14.2 H, Absolute Lymphocytes 2.3, Absolute Monocytes 0.7 H, Absolute Eosinophils 0.1, Absolute Basophils 0 Lines/Diet/Fluids Lines: peripheral lines Assessment/Plan Assessment: 52 yo F with h/o alcohol use, polysubstance abuse, HTN, T2DM, CKD, asthma, unspecified heart failure, depression, and recent admission (September 2017) to Psychiatry for depression, is here for evaluation of altered mental status. Problem List #Urinary Tract Infection -WBC improving on Ceftriaxone. She remains afebrile;T max 99.4 -Continue Ceftriaxone and -Await urine culture results #Neck Pain -Likely musculoskeletal -Will give tylenol -Apply ice packs PRN #DUNIA -Resolved with hydration -Continue to hold diuretics -Encourage oral intake #Generalized body pain -IV/PO tylenol -Avoid opiates given hx of abuse and overdose #Altered Mental Status -Could be toxic encephalopathy vs due to UTI -Now mostly resolved -Patient denies using cocaine, but did takle a friend percocets and Utox positive for opiates -Will monitor -Fall precautions #Polysubstance Abuse/Use -Was recently admitted to [facility] psych unit for overdose and suicidal ideation and on discharge was supposed to follow-up with IOP however, patient was unable to follow-up because she did not have a ride on the day of her appointments -Watch for withdrawal; will place on [facility] protocol monitoring #H/O Depression/SI -Psych following -She will benefit from intensive outaptient program -Please call on-call psychiatry for clearance before discharging this patient. [phone], [phone] #HTN -Stable -Continue Carvedilol. #HLD -Continue Atorvastatin. #T2DM -BG have remaineed shell 200 -Continue Novolog SS -Fingersticks TIDAC/HS -Diabetic diet -Check Hb A1C Problem List: 1. UTI (urinary tract infection) 2. Altered mental status 3. DM2 (diabetes mellitus, type 2) 4. Essential hypertension Pain Ratin Pain Location: generalized Pain Goal: Remain pain free Pain Plan: current plan. Avoid opiates Tomorrow's Labs & Rationales: cbc
[2017-10-14 06:36] VITALS: BP 110/62
[2017-10-14 14:35] VITALS: BP 118/56
[2017-10-14 18:36] VITALS: BP 128/70
[2017-10-14 20:11] VITALS: BP 110/60
[2017-10-15 06:49] VITALS: BP 108/64
--- NOTE | 2017-10-15 08:32 | PN- Housestaff ---
Ara Cavazos 10/15/17 0832: Subjective Follow-up For: #Altered mental status 2/2 Toxic encephalopathy vs UTI #Urinary tract infection #Acute kidney injury #Polysubstance abuse #T2DM Complaints: STILL NAUSEOUS Subjective: Patient is seen and examined this morning, lying comfortably in the bed, appears a little tired. Denies any more neck pain, nausea well controlled with the Zofran. Vitals are stable. Review of Systems Constitutional: Denies: chills, diaphoresis, fever, malaise. EENTM: Denies: blurred vision, double vision, visual changes. Respiratory: Denies: cough, hemoptysis, orthopnea. Gastrointestinal: Reports: nausea. Denies: bloating, diarrhea, distention. Genitourinary: Denies: discharge, dysuria, hematuria. Musculoskeletal: Denies: back pain, gout, joint pain, joint swelling. Objective Last 24 Hrs of Vital Signs/I&O Vital Signs Date Time Temp Pulse Resp B/P B/P Pulse O2 O2 Flow FiO2 Mean Ox Delivery Rate 10/15 0729 108/64 10/15 0729 108/64 / 0649 97.8 72 18 108/64 95 Room Air 05/ 2033 70 110/60 10/14 2011 98.1 70 20 110/60 95 Room Air 05/05 1836 98.0 88 20 128/70 05/05 1435 97.6 68 20 118/56 98 Intake & Output / 1600 / 0800 05/ 0000 Intake Total 300 200 Output Total Balance 300 200 Intake, Oral 300 200 Physical Exam General Appearance: Alert, Oriented X3 Skin: No Rashes, No Breakdown Skin Temp/Moisture Exam: Warm/Dry Cardiovascular: Regular Rate, Normal S1, Normal S2 Lungs: BIBASILAR CRAKLES ON EXAM Abdomen: Normal Bowel Sounds, Soft, No Tenderness Neurological: Normal Gait Current Medications: Current Medications Sig/Traci Start time Last Medication Dose Route Stop Time Status Admin Acetaminophen 1,000 MG .STK-MED ONE 10/14 1623 DC IV 10/14 1624 Acetaminophen 1,000 MG Q8 PRN 10/13 0100 AC 10/15 IV 0646 Albuterol Sulfate 2 PUF Q4-6 PRN PRN 10/13 0130 AC INH Albuterol Sulfate 3 ML Q4P PRN 10/13 0130 AC INH Atorvastatin Calcium 20 MG 1700 10/13 1700 AC 10/14 PO 1626 Carvedilol 6.25 MG BID 10/13 0128 AC 10/15 PO 0729 Ceftriaxone Sodium 1,000 MG Q24H 10/14 0015 AC 10/14 IV 2324 Fluticasone 2 SPRAY DAILY 10/13 0900 AC 10/15 Propionate ANURAG 0729 Gabapentin 600 MG 2100 10/13 2100 AC 10/14 PO 2033 Gabapentin 300 MG 0900,1400 10/13 0900 AC 10/15 PO 0729 Heparin Sodium 5,000 UNIT Q8 10/13 0054 AC 10/15 (Porcine) SC 0546 Insulin Aspart 0 TIDAC 10/13 0800 AC SC Lorazepam 0 Q1P PRN 10/14 1845 AC 10/15 IV 0736 Nebivolol 5 MG DAILY 10/13 0900 AC 10/15 PO 0729 Nicotine 21 MG DAILY 10/13 0900 AC 10/15 TOP 0729 Ondansetron HCl 4 MG Q8P PRN 10/15 0900 AC PO Ondansetron HCl 4 MG ONCE ONE 10/14 1645 DC 10/14 IV 10/14 1646 1842 Ondansetron HCl 4 MG ONCE ONE 10/14 1015 DC IV 10/14 1016 Sodium Chloride 1,000 ML Q13H 10/13 0130 DC 10/14 IV 0123 Last 24 Hrs of Lab/David Results Last 24 Hrs of Labs/Mics: Laboratory Tests 10/15/17 0735: Sodium Pending, Potassium Pending, Chloride Pending, Carbon Dioxide Pending, Anion Gap Pending, BUN Pending, Creatinine Pending, BUN/Creatinine Ratio Pending , CBC w Diff Pending, WBC Pending, RBC Pending, Hgb Pending, Hct Pending, MCV Pending, MCH Pending, MCHC Pending, RDW Pending, Plt Count Pending, MPV Pending Assessment/Plan Assessment: 52 yo F with h/o alcohol use, polysubstance abuse, HTN, T2DM, CKD, asthma, unspecified heart failure, depression, and recent admission (September 2017) to Psychiatry for depression, is here for evaluation of altered mental status. Problem List #Urinary Tract Infection -WBC improving on Ceftriaxone. -Patient remained afebrile overnight, blood and urine cultures remained negative. Will consider stopping the antibiotic. #Neck Pain -Likely musculoskeletal-better now -Will give tylenol -Apply ice packs PRN #DUNIA -Resolved with hydration -Continue to hold diuretics -Encourage oral intake #Generalized body pain -IV/PO tylenol -Avoid opiates given hx of abuse and overdose #Altered Mental Status -Could be toxic encephalopathy vs due to UTI -Now mostly resolved -Patient denies using cocaine, but did takle a friend percocets and Utox positive for opiates -Will monitor -Fall precautions #Polysubstance Abuse/Use -Was recently admitted to [facility] psych unit for overdose and suicidal ideation and on discharge was supposed to follow-up with IOP however, patient was unable to follow-up because she did not have a ride on the day of her appointments -Watch for withdrawal; will place on [facility] protocol monitoring #H/O Depression/SI -Psych following -She will benefit from intensive outaptient program -Please call on-call psychiatry for clearance before discharging this patient. [phone], [phone] #HTN -Stable -Continue Carvedilol. #HLD -Continue Atorvastatin. #T2DM -BG have remaineed shell 200 -Continue Novolog SS -Fingersticks TIDAC/HS -Diabetic diet -Check Hb A1C Problem List: 1. UTI (urinary tract infection) 2. Altered mental status 3. Acute kidney injury Pain Ratin Pain Location: Slight neck pain Pain Goal: Pain 4 or less Pain Plan: When necessary Tylenol Tomorrow's Labs & Rationales: CBCs and BEP tomorrow Hosea Davis MD 10/15/17 1048: Attending MD Review Statement Attending Statement Attending Statement: examined this patient, discuss w/resident/PA/PAINTER [employer], agreed w/resident/PA/PA[employer], discussed with family, reviewed EMR data (avail), discussed with nursing, discussed with case mgmt, reviewed images, amended to note Attending Assessment/Plan: Hosea Ortiz M.D. have examined this patient, reviewed available EMR data, personally reviewed images, discussed with resident/PA/PA[employer], discussed management plan with housestaff and nursing staff, discussed managment plan all of healthcare providers, discussed management plan with patient and/or family, agreed with resident/PA/PA[employer]. The past history and parts of the chart have been autopopulated. Impression 52 year old woman * UTI * substance dependence (history of cocaine/opiates-percocet) * DUNIA - resolved * Depression/Anxiety * HTN * DM Plan -continue ceftriaxone for now, if wbc remains normal tomorrow, can switch to PO -preliminary culture without growth -afebrile, wbc resolved -continue current medications -pain control -nausea improved with zofran significantly -DC planning with 24-48 hrs DVT prophylaxis at all times - Heparin 5000 Units subcutaneous q8h
[2017-10-15 08:40] LABS: ABSOLUTE EOSINOPHIL COUNT 0.3 /CUMM (0.0-0.7); ABSOLUTE LYMPH COUNT 2.6 /CUMM (1.2-3.4); ABSOLUTE MONOCYTE COUNT 0.5 /CUMM (0.10-0.60); BASOPHIL % 0.7 % (0.0-2.0)
[2017-10-15 09:06] LABS: ABSOLUTE BASOPHIL COUNT 0 /CUMM (0.0-0.2); ABSOLUTE GRANULOCYTE CT 3.6 /CUMM (1.4-6.5); EOSINOPHIL % 4.2 % (0-5); HEMATOCRIT 34.7 % (37-47); MEAN CORPUSCULAR VOLUME 87.9 FL (81.0-99.0); MEAN PLATELET VOLUME 7.9 FL (7.4-10.4); PLATELET COUNT 284 /CUMM (130-400); RBC DISTRIBUTION WIDTH 21.1 % (11.5-14.5); RED BLOOD CELL CT 3.95 /CUMM (4.20-5.40)
[2017-10-15 09:11] LABS: WHITE BLOOD CELL COUNT 7.2 /CUMM (4.8-10.8)
[2017-10-15 15:21] VITALS: BP 104/72
[2017-10-15 18:00] VITALS: BP 110/60
[2017-10-15 22:00] VITALS: BP 120/80
[2017-10-15 22:18] VITALS: BP 120/80
[2017-10-16 02:17] VITALS: BP 104/60
[2017-10-16 06:25] VITALS: BP 110/68
--- NOTE | 2017-10-16 07:54 | PN- Housestaff ---
Glen QUIGLEY,Olga 10/16/17 0753: Subjective Follow-up For: #Altered mental status 2/2 Toxic encephalopathy vs UTI #Urinary tract infection #Acute kidney injury #Polysubstance abuse #T2DM Complaints: no complaints Subjective: Patient is seen and examined this morning lying comfortably in the bed, denies any complaints, vital stable. Review of Systems Constitutional: Reports: no symptoms. Objective Last 24 Hrs of Vital Signs/I&O Vital Signs Date Time Temp Pulse Resp B/P B/P Pulse O2 O2 Flow FiO2 Mean Ox Delivery Rate 10/16 1424 97.3 66 18 110/70 94 Room Air / 0847 97.7 79 20 110/68 / 0847 97.7 79 20 110/68 / 0800 79 20 110/70 / 0625 97.7 79 20 110/68 93 Room Air / 0217 97.7 75 20 104/60 96 Room Air / 2218 98.1 72 20 120/80 94 Room Air / 2200 98.1 72 20 120/80 /2004 72 110/60 05/06 1800 98.1 81 18 110/60 / 1800 98.1 80 19 110/60 98 Room Air Intake & Output 10/16 1600 10/16 0800 10/16 0000 Intake Total 500 550 600 Output Total 225 Balance 500 550 375 Intake, IV 250 Intake, Oral 500 300 600 Output, Urine 225 Physical Exam General Appearance: Alert, Oriented X3, Cooperative, No Acute Distress HEENT: Mucous Membr. moist/pink Cardiovascular: Regular Rate, Normal S1, Normal S2 Lungs: Clear to Auscultation, Normal Air Movement Abdomen: Normal Bowel Sounds, Soft, No Tenderness Extremities: No Edema, Normal Pulses Current Medications: Current Medications Sig/Traci Start time Last Medication Dose Route Stop Time Status Admin Acetaminophen 1,000 MG .STK-MED ONE 10/16 0514 DC IV 10/16 0515 Acetaminophen 1,000 MG .STK-MED ONE 10/15 1806 DC IV 10/15 1807 Acetaminophen 1,000 MG Q8 PRN 10/13 0100 DCD 10/16 IV 0515 Albuterol Sulfate 2 PUF Q4-6 PRN PRN 10/13 0130 DCD INH Albuterol Sulfate 3 ML Q4P PRN 10/13 0130 DCD INH Amoxicillin/ 875 MG Q12 10/16 0900 DC 05 Clavulanate Potassium PO 0924 Atorvastatin Calcium 20 MG 1700 10/13 1700 DCD 05 PO 1654 Carvedilol 6.25 MG BID 10/13 0128 DCD 10/16 PO 0847 Ceftriaxone Sodium 1,000 MG Q24H 10/14 0015 DCD 05 IV 2337 Fluticasone 2 SPRAY DAILY 10/13 0900 DCD 10/16 Propionate ANURAG 0847 Gabapentin 600 MG 2100 10/13 2100 DCD 05 PO 2004 Gabapentin 300 MG 0900,1400 10/13 0900 DCD 05 PO 1322 Heparin Sodium 5,000 UNIT Q8 10/13 0054 DCD 10/16 (Porcine) SC 1322 Insulin Aspart 0 TIDAC 10/13 0800 DCD SC Lorazepam 0 Q1P PRN 10/14 1845 DCD 10/15 IV 2005 Nebivolol 5 MG DAILY 10/13 0900 DCD 10/16 PO 0847 Nicotine 21 MG DAILY 10/13 0900 DCD 10/16 TOP 0847 Ondansetron HCl 4 MG Q8P PRN 10/15 0900 DCD PO Patient Medication 1 ED ONE ONE 10/16 1545 DC Teaching ED 10/16 1546 Spironolactone 25 MG DAILY 10/16 0900 DCD 10/16 PO 0924 Last 24 Hrs of Lab/David Results Last 24 Hrs of Labs/Mics: Laboratory Tests 10/16/17 0748: Anion Gap 9, Estimated GFR > 60, BUN/Creatinine Ratio 25.0, CBC w Diff NO MAN DIFF REQ, RBC 3.95 L, MCV 88.3, MCH 29.1, MCHC 33.0, RDW 21.5 H, MPV 8.0, Gran % 53.4, Lymphocytes % 35.8, Monocytes % 6.7, Eosinophils % 3.6, Basophils % 0.5, Absolute Granulocytes 4.1, Absolute Lymphocytes 2.8, Absolute Monocytes 0.5, Absolute Eosinophils 0.3, Absolute Basophils 0 Orders Fingersticks (last 24 hrs): <200 Lines/Diet/Fluids Lines: peripheral lines Assessment/Plan Assessment: 52 yo F with h/o alcohol use, polysubstance abuse, HTN, T2DM, CKD, asthma, unspecified heart failure, depression, and recent admission (September 2017) to Psychiatry for depression, is here for evaluation of altered mental status. Problem List #Urinary Tract Infection -WBC improving on Ceftriaxone. -Patient remained afebrile overnight, blood and urine cultures remained negative. -Antibiotics discontinued today #Neck Pain -Likely musculoskeletal-better now -Will give tylenol PRN -Apply ice packs PRN #DUNIA -Resolved with hydration -Will resume her diuretics on discharge -Encourage oral intake #Generalized body pain -Resolved -IV/PO tylenol PRN -Avoid opiates given hx of abuse and overdose #Altered Mental Status -Could be toxic encephalopathy vs due to UTI -Now resolved -She takes alprazolam 2mg BID prescribed by her PCP -On CIWA monitoring -Fall precautions -Pt needs to taper off benzos so she can attend IOP and also get treatment for her heroine use. #Polysubstance Abuse/Use -Was recently admitted to [facility] psych unit for overdose and suicidal ideation and on discharge was supposed to follow-up with IOP however, patient was unable to follow-up because she did not have a ride on the day of her appointments -Patient denies using cocaine, but did takle a friend percocets and Utox positive for opiates. She also endorses continued heroine use -Watch for withdrawal; will place on CIWA protocol monitoring -Written resources to help with her addiction will be given to her on DC #H/O Depression/SI -Psych following -She will benefit from intensive outaptient program -Please call on-call psychiatry for clearance before discharging this patient. [phone], [phone] #HTN -Stable -Continue Carvedilol #HLD -Continue Atorvastatin #T2DM -BG have remaines under 200 -Continue Novolog SS -Fingersticks TIDAC/HS -Diabetic diet -Hb A1C 6.2 Problem List: 1. UTI (urinary tract infection) 2. Acute kidney injury 3. Altered mental status 4. DM2 (diabetes mellitus, type 2) Pain Ratin Pain Location: generalized Pain Goal: Remain pain free Pain Plan: cont current plan Tomorrow's Labs & Rationales: none Aric Sweeney MD 10/16/17 2008: Attending Review Statement Attending Statement Attending Statement: examined this patient, discuss w/resident/PA/ANIMAL MAINTENANCE SUPERVISOR, agreed w/resident/PA/ANIMAL MAINTENANCE SUPERVISOR, discussed with family, reviewed EMR data (avail), discussed with nursing, discussed with case mgmt, amended to note Attending Assessment/Plan: The patient was seen and discussed with house staff. Appreciate psych input. OK to discharge today with OP plan to taper benzos (psych arranged with her primary psychiatrist). Concern regarding h/o drug abuse (heroin/cocaine). Daughter expressed concern, however patient has capacity to make decisions.
--- NOTE | 2017-10-16 07:58 | Discharge Summary ---
Visit Information Visit Dates Admission Date: 10/12/17 Discharge Date: 10/16/17 Hospital Course Course Attending Physician: Aric Sweeney MD Primary Care Physician: Alfredo QUIGLEY,Art Cardenas Hospital Course: 52 yo F with h/o alcohol use, polysubstance abuse, HTN, T2DM, CKD, asthma, unspecified heart failure, depression, and recent admission (September 2017) to Psychiatry for depression and SI, is here for evaluation of altered mental status. Problem List #Altered Mental Status Could be toxic encephalopathy vs due to UTI. Resolved within a few hours. Patient denied using cocaine, but endorsed obtaining percocet from a friend and using heroine. Utox was positive for opiates. She is also on xanax prescribed by her PCP and after psych evaluation will need an IOP. She has an outpatient psychiatrist. Her PCP/psychiatrist will need to taper her benzodiazepines so she can attend IOP. We discharged her on 1.5 mg ativan BID with enough tabs to get her through till she is able to make an appointment with her PCP/psychiatrist. #Urinary Tract Infection She was found to have a positive UA and elevated WBC so UTI was considered as a possible cause of her altered mentation. She was started on IV Ceftriaxone withnormalization of her WBC. She remained afebrile. Her blood and urine cultures however came back negative and antibiotics were discontinued after 4 days. She remained asymptomatic. #Neck Pain and Generalized body pain Pain improved with tylenol and ice packs. We avoided opiates given hx of abuse and overdose. Pain is now resolved and is was likely musculoskeletal. #DUNIA She had a mild DUNIA of 1.9 which resolved with hydration. Her diuretics were held while on admission and resumed on discharge. Adequate oral intake encouraged. #Polysubstance Abuse/Use Was recently admitted to [facility] unit for overdose and suicidal ideation and on discharge was supposed to follow-up with [facility] however, after her intake appointment, she was unable to continue follow-up because she did not have a ride on the day of her appointments. She has been advised that it is very important that she follows up with IOP for treatment of her continuing heroine abuse. #H/O Depression/SI Psych following. She will benefit from intensive outpatient program #HTN Stable on her home dose of carvedilol. #HLD Continued on her home dose of atorvastatin. #T2DM Blood sugars were controlled on Novolog SS while in [facility] but will be discharged on her home dose of metformin. Diabetic diet was continued. Hb A1C was 6.2. #Liver Cirrhosis We held spironolactone during admission due to DUNIA, but we resumed it on discharge. Her nebivolol was continued. She should follow up with her GI physicians as outpatient. Complications: NONE Allergies: Coded Allergies: No Known Allergies (04/04/17) Disposition Summary Disposition Principal Diagnosis: #Altered mental status 2/2 Toxic encephalopathy vs UTI #Urinary tract infection #Acute kidney injury Additional Diagnosis: #Polysubstance abuse #T2DM #Liver Cirrhosis Discharge Disposition: home or self care Discharge Instructions General Discharge Information Code Status: Full Code Patient's Diet: DIABETIC Patient's Activity: TOLERATED Follow-Up Instructions/Appts: PLEASE FOLLOW UP WITH YOUR PCP DR. ART GRANADOS ON OCT 26 2017 FOR MEDICATION MANAGEMENT-10.45AM. CALL [phone] IF ANY QUESTIONS. THE [place] ACCESS DATABASE DEVELOPER HAS PROVIDED YOU WITH WRITTEN RESOURCES FOR HELP WITH ADDICTION. PLEASE FOLLOW UP WITH YOUR GI DOCTOR IN 1-2 WEEKS PLEASE FOLLOW UP WITH YOUR PSYCHIATRIST IN 1 WEEK Medications at Discharge Discharge Medications: Continue taking these medications: Folic Acid (Folic Acid) 1 MG TABLET 1 Tablet ORAL DAILY Qty = 14 Comments: NOT TAKEN IN HOSPITAL Furosemide (Furosemide) 40 MG TABLET 1 Tablet ORAL DAILY Qty = 30 Comments: NOT TAKEN IN HOSPITAL Carvedilol (Carvedilol) 6.25 MG TABLET 1 Tablet ORAL TWICE DAILY Qty = 60 Comments: Last Taken:10/16/17 Time:0845 AM Albuterol Sulfate (Albuterol Sulfate) 2.5 MG/3 ML (0.083 %) VIAL.NEB 1 Vial Inhale Solution EVERY 4 HOURS NEEDED as needed for SHORTNESS OF BREATH Qty = 375 Comments: Last Taken:NOT TAKEN IN HOSPITAL Time: Fluticasone Propionate (Fluticasone Propionate) 50 MCG/ACTUATION SPRAY.SUSP 2 [place] Both sides of nose DAILY Qty = 16 Comments: Last Taken: 10/16/17 Time: 0845 AM Spironolactone (Spironolactone) 25 MG TABLET 1 Tablet ORAL DAILY Qty = 30 Comments: Last Taken: 10/16/17 Time: 0930 AM Metformin HCl (Metformin HCl) 500 MG TABLET 1 Tablet ORAL TWICE DAILY Qty = 180 Comments: NOT TAKEN IN HOSPITAL Atorvastatin Calcium (Atorvastatin Calcium) 20 MG TABLET 1 Tablet ORAL DAILY Qty = 90 Comments: Last Taken:10/15/17 Time:1655 PM Nebivolol HCl (Bystolic) 5 MG TABLET 1 Tablet ORAL DAILY Qty = 30 Comments: Last Taken: 10/16/17 Time: 0845 AM Nicotine (Nicotine Patch) 21 MG/24 HOUR PATCH.TD24 21 Milligram On the skin DAILY Qty = 14 Comments: Last Taken: 10/16/17 Time: 0845 AM Diclofenac Sodium (Diclofenac Sodium) 75 MG TABLET.DR 75 Milligram ORAL TWICE DAILY Qty = 30 Comments: NOT TAKEN IN HOSPITAL Multivitamin (One Daily Multivitamin) 1 EACH TABLET 1 Tablet ORAL DAILY Qty = 30 Comments: NOT TAKEN IN HOSPITAL Albuterol Sulfate (Proair Hfa) 90 MCG HFA.AER.AD 2 Puff Inhale through mouth EVERY 4-6 HOURS NEEDED as needed for sob Qty = 1 Comments: NOT TAKEN IN HOSPITAL Gabapentin (Gabapentin) 300 MG CAPSULE 1 Capsule ORAL SEE INSTRUCTIONS Qty = 69 Instructions: 1 cap QAM, 1 cap Q2PM and 2 Caps QHS Comments: Last Taken: 10/16/17 Time: 1320 PM Copies To: Alfredo QUIGLEY,Art Cardenas Attending MD Review Statement Documenting Attending: Aric Sweeney MD Other Findings: The patient was seen and agree with the plan of care upon discharge.
[2017-10-16 08:00] VITALS: BP 110/70
[2017-10-16 08:50] LABS: ABSOLUTE BASOPHIL COUNT 0 /CUMM (0.0-0.2); ABSOLUTE EOSINOPHIL COUNT 0.3 /CUMM (0.0-0.7); ABSOLUTE GRANULOCYTE CT 4.1 /CUMM (1.4-6.5); ABSOLUTE LYMPH COUNT 2.8 /CUMM (1.2-3.4); ABSOLUTE MONOCYTE COUNT 0.5 /CUMM (0.10-0.60); BASOPHIL % 0.5 % (0.0-2.0); EOSINOPHIL % 3.6 % (0-5); GRANULOCYTE % 53.4 % (42.2-75.2); HEMATOCRIT 34.9 % (37-47); MEAN CORPUSCULAR HGB 29.1 PG (27.0-31.0); MEAN CORPUSCULAR VOLUME 88.3 FL (81.0-99.0); PLATELET COUNT 325 /CUMM (130-400); RBC DISTRIBUTION WIDTH 21.5 % (11.5-14.5); RED BLOOD CELL CT 3.95 /CUMM (4.20-5.40); WHITE BLOOD CELL COUNT 7.7 /CUMM (4.8-10.8)
[2017-10-16] MEDS ORDERED: AMOX-CLAV 875-1 EACH PO (12:19)
--- NOTE | 2017-10-16 12:22 | Patient Discharge Instructions ---
Discharge Instructions General Discharge Information You were seen/treated for: URINARY TRACT INFECTION AND ACUTE KIDNEY INJURY Special Instructions: PLEASE FOLLOW UP WITH YOUR PCP DR. ART GRANADOS ON OCT 26 2017 FOR MEDICATION MANAGEMENT-10.45AM. CALL [phone] IF ANY QUESTIONS. THE EMISSION TECHNICIAN HAS PROVIDED YOU WITH WRITTEN RESOURCES FOR HELP WITH ADDICTION. PLEASE FOLLOW UP WITH YOUR GI DOCTOR IN 1-2 WEEKS PLEASE FOLLOW UP WITH YOUR PSYCHIATRIST IN 1 WEEK Diet Recommended Diet: Diabetic Activity Full Activity/No Limits: Yes Acute Coronary Syndrome Inclusion Criteria At DC or during hospital stay patient has or had the following: ACS DIAGNOSIS No Discharge Core Measures Meds if any: Prescribed or Continued at Discharge Meds if any: NOT Prescribed or Continued at Discharge Congestive Heart Failure Inclusion Criteria At DC or during hospital stay patient has or had the following: CHF DIAGNOSIS No Discharge Core Measures Meds if any: Prescribed or Continued at Discharge Meds if any: NOT Prescribed or Continued at Discharge Cerebrovascular accident Inclusion Criteria At DC or during hospital stay patient has or had the following: CVA/TIA Diagnosis No Discharge Core Measures Meds if any: Prescribed or Continued at Discharge Meds if any: NOT Prescribed or Continued at Discharge Venous thromboembolism Inclusion Criteria VTE Diagnosis No VTE Type NONE VTE Confirmed by (Test) NONE Discharge Core Measures - Per Current guidelines, there needs to be overlap - treatment for the first 5 days of Warfarin therapy. - If discharged on Warfarin prior to 5 days of - overlap therapy, the patient will need to be - assessed for post discharge needs including - *Post discharge parental anticoagulation - *Warfarin and/or parental anticoagulation education - *Follow up date to check INR post discharge At least 5 days overlap therapy as Inpatient No Meds if any: Prescribed or Continued at Discharge Note: Overlap Therapy is Warfarin and Anticoagulant Meds if any: NOT Prescribed or Continued at Discharge
--- NOTE | 2017-10-16 14:09 | PN- Psychiatry ---
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 Pt reports she did not know she had a UTI. She reports feeling worried and depressed but denies SI: "Absolutely not!! I want to get out of here to see my babies!!" She reports she has been taking xanax given to her by her PCP twice a day but also states that at the present time neither her PCP nor her psychiatrist want to prescribe xanax to her. She spontaneously endorses a trauma hx but remains guarded about details both to me and to her family. Reports she does not like to talk about her childhood with family or her doctors and that they don't understand what she is coping with. I explained to her the dangers of stopping BZD abruptly including serious illness and and that if her doctors are not willing to prescribe her this class of medication she will have to go to see a doctor who will taper the xanax whether her PCP, and IOP program or outpatient psychiatry. In house, she received some ativan but not continuously. Vitals are stable and she is NAD. She superficially endorsed being amenable to tapering the BZD as an outpatient. She appears to want to leave and asked me when "they can take the needle out." Later she admitted to social work that she is a heroin addict. DCF is already involved and her oldest daughter has custody of the youngest children. She is not psychotic or delirious and she states credibly that she does not want to hurt herself. MSE: Pt is sitting up in bed eating. She is pleasant on exam. Her speech is clear normal volume rate and rhythm. Her mood is down "I'm dealing with a lot at the house" her affect is good range. Her thought process is linear and her thought content involves continuing xanax but not having a prescriber. She knows not tapering could potentially make her sick. Her insight is superficial and her judgment out of the hospital appears to be poor. She does voice that she is open to getting help for substance use. No SI or HI. No hallucinations. A/ 52 y/o F with hx depression and recent admission for SI as well as opiate dependence and cocaine and sedative use d/o who presented with confusion and was found to have a UTI and acute kidney injury. Pt is cleared by medicine to leave. She is not delirious, psychotic or suicidal but she will need outpatient care to taper her BZD use. IOP would be ideal given her polysubstance use. P/ -Pt will need an IOP, outpatient psychiatry or her PCP willing to taper her benzodiazepines. Dispo pending. -Would send her with 1.5 mg ativan BID with only enough tabs to get her to the appointment that will be scheduled. Page #[phone] with any questions. KRISTA Suggestion: see impression Subjective Subjective: see impression Objective Last 24 Hrs of Vital Signs/I&O Vital Signs Date Time Temp Pulse Resp B/P B/P Pulse O2 O2 Flow FiO2 Mean Ox Delivery Rate 10/16 846 97.7 79 20 110/68 / 0847 97.7 79 20 110/68 / 0800 79 20 110/70 05/ 0625 97.7 79 20 110/68 93 Room Air 05/ 0217 97.7 75 20 104/60 96 Room Air 05/06 2218 98.1 72 20 120/80 94 Room Air 05/06 2200 98.1 72 20 120/80 05/06 2005 72 110/60 05/06 1800 98.1 81 18 110/60 05/06 1800 98.1 80 19 110/60 98 Room Air 05/06 1521 98.2 74 20 104/72 98 Intake & Output 10/16 1600 10/16 0800 05/ 0000 Intake Total 550 600 Output Total 225 Balance 550 375 Intake, IV 250 Intake, Oral 300 600 Output, Urine 225
[2017-10-16 14:24] VITALS: BP 110/70
== END 2017-10-16 15:48 | disposition home health service (06) | DRG 469 ==
LOC: ERH 20:05 → 2NA 23:01 → ERHI 23:01 → ENRESERV 23:56 → 2NA 10-13 00:23
PROVIDERS: Physician Assistant; Student in an Organized Health Care Education/Training Program
DX: N17.9 Acute kidney failure, unspecified (principal); G92 Toxic encephalopathy; N30.00 Acute cystitis without hematuria; Z72.0 Tobacco use; R41.82 Altered mental status, unspecified; Z79.84 Long term (current) use of oral hypoglycemic drugs; I13.0 Hypertensive heart and chronic kidney disease with heart failure and stage 1 through stage 4 chronic kidney disease, or unspecified chronic kidney disease; I50.9 Heart failure, unspecified; N18.9 Chronic kidney disease, unspecified; E11.22 Type 2 diabetes mellitus with diabetic chronic kidney disease; E86.0 Dehydration; F19.10 Other psychoactive substance abuse, uncomplicated; Z72.89 Other problems related to lifestyle; T40.2X5A Adverse effect of other opioids, initial encounter; F32.9 Major depressive disorder, single episode, unspecified; Z79.51 Long term (current) use of inhaled steroids; E78.5 Hyperlipidemia, unspecified; N39.0 Urinary tract infection, site not specified; F14.10 Cocaine abuse, uncomplicated; F13.10 Sedative, hypnotic or anxiolytic abuse, uncomplicated; E11.9 Type 2 diabetes mellitus without complications; M54.2 Cervicalgia; Z91.5 Personal history of self-harm; F41.9 Anxiety disorder, unspecified
CPT/HCPCS: 2NASP; ERO; 36592; 71045; 80307; 81001; 82436; 87040; 87086; 93005; 93010; 97116-GO; 97161-GP; 99232; G0480; J0131; J0696; J1644; J2405; J3101; J3490